=== PATIENT | female | born 1960 | race African-American/Black ===

== ENCOUNTER 2017-06-20 13:37 | Emergency (ER) | payer MEDICAID ==
[~2017-06-20] VITALS: Ht 167.6 cm; Wt 124.3 kg
[~2017-06-20 13:37] MED LIST: AMIT25TA9 PO; ASPI81TA10 PO; CITA-77 PO; ENAL20TA70 PO; GABA300C10 PO; IBUP600T27 PO; LURA80TA PO; Protonix PO; QUET25TA37 PO; TRIA37.577 PO
[2017-06-20 13:52] VITALS: BP 157/79
== END 2017-06-20 16:45 | disposition home or self-care (01) ==
LOC: ER 13:37
DX: L72.0 Epidermal cyst (principal); I10 Essential (primary) hypertension; Z79.82 Long term (current) use of aspirin

== ENCOUNTER 2017-12-17 01:06 | Emergency (ER) | payer MEDICARE, MEDICAID ==
[~2017-12-17] VITALS: Ht 167.6 cm; Wt 122.5 kg
[2017-12-17 02:51] VITALS: BP 142/80
== END 2017-12-17 03:12 | disposition home or self-care (01) ==
LOC: ER 01:06
DX: L21.9 Seborrheic dermatitis, unspecified (principal); I10 Essential (primary) hypertension; M32.9 Systemic lupus erythematosus, unspecified; Z79.899 Other long term (current) drug therapy

== ENCOUNTER 2018-01-12 21:06 | Emergency (ER) | payer MEDICARE, MEDICAID ==
[~2018-01-12] VITALS: Ht 167.6 cm; Wt 83.5 kg
[2018-01-12 22:07] LABS: Basophils # (auto) 0.1 uL; Basophils % (auto) 0.9 % (0.0-2.0); Eosinophils # (auto) 0 uL; Eosinophils % (auto) 0.4 % (0.0-7.0); Hematocrit 42.8 % (36.0-46.0); Hemoglobin 14.2 g/dL (12.2-16.2); Lymphocytes # (auto) 2.7 uL; Lymphocytes % (auto) 27.5 % (10.0-50.0); Mean Corpuscular Hemoglobin 28.4 pg (28.0-32.0); Mean Corpuscular Hgb Conc. 33.2 g/dL (32.0-36.0); Mean Corpuscular Volume 85.7 fL (80.0-100.0); Monocytes # (auto) 1.1 uL; Monocytes % (auto) 11.5 % (0.0-12.0); Neutrophils # (auto) 5.8 uL; Neutrophils % (auto) 59.7 % (37.0-80.0); Nucleated Red Blood Cells % 0.2 %; Platelet Count (auto) 174 10^3/uL (140-450); White Blood Cell 9.8 10^3/uL (4.4-10.8)
[2018-01-12 22:20] LABS: INR 1.05 (0.9-1.15); Partial Thromboplastin Time 24.9 sec (23.78-33.04); Prothrombin Time 11.2 sec (9.27-12.13)
[2018-01-12 22:26] LABS: Albumin 3.6 g/dL (3.4-5.0); Anion Gap 10 (5-15); Blood Urea Nitrogen 12 mg/dL (7-18); Calcium 8.8 mg/dL (8.5-10.1); Carbon Dioxide 25 mmol/L (21-32); Chloride 102 mmol/L (98-107); Glucose 111 mg/dL (74-106); Potassium 3.5 mmol/L (3.5-5.1); Sodium 137 mmol/L (136-145)
[2018-01-12 22:36] LABS: Alanine Aminotransferase 68 U/L (13-56); Alkaline Phosphatase 94 U/L (45-117); Aspartate Aminotransferase 78 U/L (15-37); BUN/Creatinine Ratio 13.5; Bilirubin, Total 1.1 mg/dL (0.2-1.0); GFR African American 84 mL/min; GFR Non-African American 70 mL/min; Total Protein 8.6 g/dL (6.4-8.2)
[2018-01-13 02:26] LABS: Urine Bacteria NONE SEEN /hpf (None Seen); Urine Blood Negative /uL (Negative); Urine Mucus FEW (None Seen); Urine WBC 1 /hpf (0 - 5)
[2018-01-13 02:27] VITALS: BP 172/92
[2018-01-13] MEDS ORDERED: ONDANSETRON ODT 4 MG TAB PO ONE (02:30)
== END 2018-01-13 02:53 | disposition home or self-care (01) ==
LOC: ER 21:10
DX: R10.13 Epigastric pain (principal); R11.2 Nausea with vomiting, unspecified; I10 Essential (primary) hypertension; Z79.82 Long term (current) use of aspirin; Z79.1 Long term (current) use of non-steroidal anti-inflammatories (NSAID); Z79.899 Other long term (current) drug therapy
CPT/HCPCS: 36415; 71045; 74176; 80053; 81001; 84484; 85025; 85610; 85730; 93005

== ENCOUNTER → 2018-12-04 | Emergency (ER) | payer MEDICARE, MEDICAID ==
[~2018-12-04] VITALS: Ht 167.6 cm; Wt 124.7 kg
[~2018-12-04] MED LIST changes: +ENAL20TA PO; -ENAL20TA70 PO; +SODIUM CHLORIDE 0.9% 1,000 ML IV ONE
[2018-12-04 23:44] LABS: Basophils # (auto) 0.1 uL; Eosinophils # (auto) 0.2 uL; Eosinophils % (auto) 2.7 % (0.0-7.0); Hematocrit 43.5 % (36.0-46.0); Hemoglobin 14.4 g/dL (12.2-16.2); Lymphocytes # (auto) 2.5 uL; Lymphocytes % (auto) 35.5 % (10.0-50.0); Mean Corpuscular Hemoglobin 28.9 pg (28.0-32.0); Mean Corpuscular Hgb Conc. 33.2 g/dL (32.0-36.0); Monocytes # (auto) 0.8 uL; Monocytes % (auto) 11.8 % (0.0-12.0); Neutrophils # (auto) 3.5 uL; Nucleated Red Blood Cells % 0.1 %; Platelet Count (auto) 140 10^3/uL (140-450); Red Cell Distribution Width 15.1 % (11.8-14.3); White Blood Cell 7.1 10^3/uL (4.4-10.8)
[2018-12-04 23:51] LABS: Urine Bacteria FEW /hpf (None Seen); Urine Blood Negative /uL (Negative); Urine Specific Gravity 1.004 (1.001-1.035); Urine WBC 2 /hpf (0 - 5)
[2018-12-04 23:58] LABS: Amphetamine Screen, Urine NEGATIVE (NEGATIVE); Barbiturate Scree,Urine NEGATIVE (NEGATIVE); Benzodiazephine Screen, Urine POSITIVE (NEGATIVE); Cannabinoid Screen, Urine NEGATIVE (NEGATIVE); Cocaine Screen, Urine NEGATIVE (NEGATIVE); Phencyclidine Screen, Urine NEGATIVE (NEGATIVE)
[2018-12-05 00:05] LABS: Opiate Scree,Urine NEGATIVE (NEGATIVE)
[2018-12-05 00:07] LABS: Alkaline Phosphatase 92 U/L (45-117); Bilirubin, Total 0.5 mg/dL (0.2-1.0); Total Protein 8.5 g/dL (6.4-8.2)
[2018-12-05 00:11] LABS: INR 1.01 (0.9-1.15); Partial Thromboplastin Time 27.6 sec (23.64-32.05)
[2018-12-05 00:20] LABS: Anion Gap 7 (5-15); Blood Urea Nitrogen 12 mg/dL (7-18); Carbon Dioxide 25 mmol/L (21-32); Chloride 106 mmol/L (98-107); Glucose 73 mg/dL (74-106); Potassium 3.8 mmol/L (3.5-5.1); Sodium 138 mmol/L (136-145)
[2018-12-05 00:21] LABS: Alanine Aminotransferase 111 U/L (13-56); Albumin 3.6 g/dL (3.4-5.0); Aspartate Aminotransferase 100 U/L (15-37); BUN/Creatinine Ratio 14.1; Calcium 8.7 mg/dL (8.5-10.1); GFR African American 89 mL/min; GFR Non-African American 73 mL/min
[2018-12-05 03:36] VITALS: BP 113/75
== END | disposition home or self-care (01) ==
LOC: EDUNIT# 21:30 → EDBD 21:38 → ER 21:44
DX: S16.1XXA Strain of muscle, fascia and tendon at neck level, initial encounter (principal); S29.012A Strain of muscle and tendon of back wall of thorax, initial encounter; F10.129 Alcohol abuse with intoxication, unspecified; M32.9 Systemic lupus erythematosus, unspecified; Z79.899 Other long term (current) drug therapy; Z98.51 Tubal ligation status
CPT/HCPCS: 36415; 70450; 72125; 72128; 80053; 80307; 80320; 81001; 84484; 85025; 85610; 85730; 94761; 96360; 99284; J7030

== ENCOUNTER 2024-06-19 15:54 | Inpatient (IN) | payer MEDICARE, MEDICAID ==
[~2024-06-19] VITALS: Ht 167.6 cm; Wt 119.9 kg
[~2024-06-19 15:54] MED LIST changes: +AMIT25TA20 PO; -AMIT25TA9 PO; +ENAL1TAB48 PO; -ENAL20TA PO; +GABA-1250 PO; -GABA300C10 PO; +IBUP-1454 PO; -IBUP600T27 PO; -LURA80TA PO; +LURA80TA2 PO; -SODIUM CHLORIDE 0.9% 1,000 ML IV ONE
--- NOTE | 2024-06-19 16:01 | ED.PDOC ---
History of Present Illness HPI Comments 63-year-old female brought by paramedics because of chest pain for the past six days. Chest pain going to the back. She states that she thought it was gastritis tried to use antacids without any help. She did have nausea along with vomiting in the ER. Blood pressure when paramedics arrived was systolic 180. She was given aspirin nitro. After she was medicated her blood pressure was 127/70. She continues to have vomiting in the ER. Denies any other symptoms. Time Seen by MD: 15:56 Primary Care Provider: RANDY Reviewed Notes: Nurses Notes, Medications, Allergies Allergies: Coded Allergies: NO KNOWN ALLERGIES (Unverified , 11/01/13) Home Meds Active Scripts Hydrochlorothiazide W/Triamter (Triamterene/Hydrochloroth) 1 Tab Tab, 1 TAB PO DAILY, #30 TAB 5 Refills Prov:KATHIE THOMPSONPSaeed 11/02/13 [Protonix] No Conflict Check, 20 MG PO DAILY Prov:KATHIE THOMPSON N.P. 11/02/13 Quetiapine Fumerate (Seroquel) 25 Mg Tab, 50 MG PO HS, #60 Prov:KATHIE THOMPSONP. 11/02/13 Reported Medications Citalopram Hydrobromide (Citalopram Hydrobromide) 20 Mg Tab, 20 MG PO BID, #30 11/02/13 Aspirin (Aspirin Ec Low Dose) 81 Mg Tab, 81 MG PO DAILY, #30 11/02/13 Ibuprofen (Ibuprofen) 600 Mg Tab, 600 MG PO PRN, #120 11/02/13 Enalapril Maleate (Enalapril Maleate) 20 Mg Tab, 20 MG PO DAILY, #30 11/02/13 Amitriptyline Hcl (Amitriptyline Hcl) 25 Mg Tab, 25 MG PO BID, #60 11/02/13 Gabapentin (Gabapentin) 300 Mg Cap, 300 MG PO TID, #90 11/02/13 Lurasidone Hcl (LATUDA) 80 Mg Tab, 80 MG PO DAILY, #60 11/02/13 Information Source: Patient, Emergency Med Personnel Mode of Arrival: EMS Severity: Moderate Timing: Days Duration: Since onset Past Medical History PAST MEDICAL HISTORY: Anxiety, HTN Surgical History: BTL MEDICATION AID History: No Pertinent MEDICATION AID History Family History Family History: Unknown Social History Smoker: Non-Smoker Alcohol: Denies ETOH Use Drugs: Denies Drug Use Lives In: Home Constitutional: denies: chills, diaphoresis, fatigue, fever, malaise, sweats, weakness, others EENTM: denies: blurred vision, double vision, ear bleeding, ear discharge, ear drainage, ear pain, ear ringing, eye pain, eye redness, hearing loss, mouth pain, mouth swelling, nasal discharge, nose bleeding, nose congestion, nose pain, photophobia, tearing, throat pain, throat swelling, voice changes, others Respiratory: denies: cough, hemoptysis, orthopnea, SOB at rest, shortness of breath, SOB with excertion, stridor, wheezing, others Cardiovascular: reports: chest pain Gastrointestinal: reports: nausea, vomiting; denies: abdomen distended, abdominal pain, blood streaked bowels, constipated, diarrhea, dysphagia, difficulty swallowing, hematemesis, melena, poor appetite, poor fluid intake, rectal bleeding, rectal pain, others Genitourinary: denies: abnormal vagina bleeding, burning, dyspareunia, dysuria, flank pain, frequency, hematuria, incontinence, pain, , vagina discharge, urgency, others Neurological: denies: dizziness, fainting, headache, left sided numbness, left sided weakness, numbness, paresthesia, pre-existing deficit, right sided numbness, right sided weakness, seizure, speech problems, tingling, tremors, weakness, others Musculoskeletal: denies: back pain, gout, joint pain, joint swelling, muscle pain, muscle stiffness, neck pain, others Integumetry: denies: bruises, change in color, change in hair/nails, dryness, laceration, lesions, lumps, rash, wounds, others Allergic/Immunocompromised: denies: Difficulty Healing, Frequent Infections, Hives, Itching, others Hematologic/Lymphatic: denies: anemia, blood clots, easy bleeding, easy bruising, swollen glands, others Endocrine: denies: excessive hunger, excessive sweating, excessive thirst, excessive urination, flushing, intolerance to cold, intolerance to heat, unexplained weight gain, unexplained weight loss, others Psychiatric: denies: anxiety, bipolar disorder, depression, hopeless, panic disorder, schizophrenia, sleepless, suicidal, others Physical Exam General Appearance: Moderate Distress HEENT: Normal ENT Inspection, Pharynx Normal, TMs Normal Neck: Full Range of Motion, Non-Tender, Normal, Normal Inspection Respiratory: Chest Non-Tender, Lungs Clear, No Accessory Muscle Use, No Respiratory Distress, Normal Breath Sounds Cardiovascular: No Edema, No JVD, No Murmur, No Gallop, Normal Peripheral Pulses, Regular Rate/Rhythm Breast Exam: Deferred Gastrointestinal: No Organomegaly, Non Tender, No Pulsatile Mass, Normal Bowel Sounds, Soft Genitalia: Deferred Pelvic: Deferred Rectal: Deferred Extremities: No calf tenderness, Normal capillary refill, Normal inspection, Normal range of motion, Non-tender, No pedal edema Musculoskeletal : Apperance: Normal Neurologic: Alert, energy project engineer II-XII nml as Tested, No Motor Deficits, Normal Affect, Normal Mood, No Sensory Deficits Cerebellar Function: NOT DONE Reflexes: NOT DONE Skin: Dry, Normal Color, Warm Peripheral Pulses: 3+ Radial (R), 3+ Radial (L) Lymphatic: No Adenopathy Was a procedure done? Was a procedure done?: No EKG EKG : Pulse Rate (adult): 81 [place]: Normal Cardiac Rhythm: NSR Differential Dx Considerations may include: Chest pain Electrolyte imbalance X-Ray, Labs, Meds, VS Vital Signs Date Time Temp Pulse Resp B/P (MAP) Pulse Ox O2 Delivery O2 Flow Rate FiO2 06/19/24 16:03 81 Patient alert. Complaining of chest pain nausea vomiting. Vitals stable. Answering questions. She continues to have vomiting in the ER. Establish intravenous access. Was given fluids. Was given Zofran. She was given aspirin nitro in the field. She was given nitro in the ER. Was given morphine. Reviewed her history. Explained to the patient. Continue monitoring. Time of 1ST Reevaluation: 15:59 Reevaluation 1ST: Unchanged Patient Education/Counseling: Diagnosis, Treatment, Prognosis Family Education/Counseling: No Family Present Departure 1 Departure Time of Disposition: 16:00 Impression: Primary Impression: Chest pain of unknown etiology Additional Impression: HTN (hypertension) Qualified Codes: I10 - Essential (primary) hypertension Disposition: ADMITTED INPATIENT Admit to: Med Surg Condition: Guarded Critical Care Note Critical Care Time?: No Stability Stability form required: No Heart Score Heart Score: Heart Score Response (Comments) Value History Slightly Suspicious 0 EKG Normal 0 Age 45-64 1 Risk Factors >3 or Hx ASHD 2 Troponin Normal limit 0 Total 3 DANIE KHALIL MD Jun 19, 2024 16:01
--- NOTE | 2024-06-19 16:33 | DVH ---
CHEST RADIOGRAPH Indication: sob Technique: Single frontal view of the chest was obtained Comparison: None FINDINGS: Lines and Tubes: None Lungs: No focal consolidation. Pleura: No effusion. No pneumothorax. Cardiomediastinal contours: Unremarkable Bones: No acute osseous abnormality. IMPRESSION: 1. No acute cardiopulmonary disease.
[2024-06-19 16:52] LABS: Basophils # (auto) 0.2 10 ^3/uL (0-0.2); Eosinophils # (auto) 0 10 ^3/uL (0-0.8); Eosinophils % (auto) 0.1 % (0.0-7.0); Hematocrit 53.4 % (36.0-46.0); Hemoglobin 17.7 g/dL (12.2-16.2); Lymphocytes # (auto) 4.5 10 ^3/uL (0.4-5.4); Lymphocytes % (auto) 26.9 % (10.0-50.0); Mean Corpuscular Hemoglobin 28.3 pg (28.0-32.0); Mean Corpuscular Hgb Conc. 33.1 g/dL (32.0-36.0); Mean Corpuscular Volume 85.5 fL (80.0-100.0); Monocytes # (auto) 1.7 10 ^3/uL (0-1.3); Monocytes % (auto) 10.5 % (0.0-12.0); Neutrophils # (auto) 10.2 10 ^3/uL (1.6-8.6); Neutrophils % (auto) 61.5 % (37.0-80.0); Nucleated Red Blood Cells % 0.9 %; Platelet Count (auto) 213 10^3/uL (140-450); Red Blood Cells 6.25 10^6/uL (4.0-5.20); Red Cell Distribution Width 14.2 % (11.8-14.3); White Blood Cell 16.5 10^3/uL (4.4-10.8)
[2024-06-19 16:57] LABS: Chloride 101 mmol/L (98-107); Sodium 138 mmol/L (136-145)
[2024-06-19 16:58] LABS: Anion Gap 14 (5-15); Carbon Dioxide 23 mmol/L (20-31)
[2024-06-19 16:59] LABS: Calcium 10.6 mg/dL (8.7-10.4); Potassium 3.4 mmol/L (3.5-5.1)
[2024-06-19 17:03] LABS: BUN/Creatinine Ratio 14.9 (10.0-20.0); Blood Urea Nitrogen 15 mg/dL (9-23)
[2024-06-19 17:04] LABS: Glucose 128 mg/dL (74-106)
[2024-06-19] MEDS: NITROGLYCERIN 0.4 MG SL TAB SL ONE ×2 (17:14→18:00)
[2024-06-19] MEDS: SODIUM CHLORIDE 0.9% 1,000 ML IV ONE (17:16)
[2024-06-19] MEDS: ONDANSETRON HCL 4 MG/2 ML VIAL IV ONE (17:18)
[2024-06-19] MEDS: MORPHINE SULFATE 4 MG/ML SYR/VIAL IV ONE (17:18)
[2024-06-19 17:32] VITALS: PULSE 91; RESP 15; O2SAT 96
[2024-06-19] MEDS ORDERED: ONDANSETRON HCL 4 MG/2 ML VIAL IV PRN (18:00)
[2024-06-19] MEDS ORDERED: MORPHINE SULFATE INJ 2 MG/ml SYRG IV PRN (18:00)
[2024-06-19] MEDS ORDERED: NITROGLYCERIN 0.4 MG SL TAB SL PRN ×2 (18:00)
[2024-06-19] MEDS ORDERED: MORPHINE SULFATE 4 MG/ML SYR/VIAL IV PRN (18:00)
[2024-06-19] MEDS ORDERED: LEVO25TA6 PO (18:13)
[2024-06-19] MEDS ORDERED: HYDR50CA2 PO (18:13)
[2024-06-19] MEDS ORDERED: DIVA500T13 PO (18:13)
--- NOTE | 2024-06-19 18:28 | DVHHP2 ---
History of Present Illness Reason for Visit: Chest pain History of Present Illness Anjel Swift is a 63-year-old female with past medical history of hypertension, lupus, GERD, depression, right breast cancer, left toe surgery, right lower extremity DVT, and bilateral tubal ligation who presents to the ED with chest pain with nausea x6 days. Patient reports that the emesis now coming out is green and mucousy. She also states that she has not been able to drink water for about 6 to 7 days. Patient states that the pain in the chest is midsternum radiates down her to her navel is 10/10 constant and tight. Patient states nothing makes the pain better or worse she also states that she tried [id number] antacids and it did not work. Patient denies any shortness of breath, fever, chills, lightheadedness, weakness, dizziness, recent trauma or injury, recent sick contacts, recent travels, diarrhea, or shortness of breath. maalox Cardiovascular: HTN GI: GERD Psych: Depression Past Medical History Lupus Right lower extremity DVT not on anti coags Past Surgical History: Other (Right breast cancer tissue removal and left toe surgery), Tubal Ligation Family History: Cancer, Other (Mom with ovarian cancer, grandma with ovarian cancer, aunt with leukemia, uncle with cancer unknown, dad with PA and cardiovascular disease) Smoke: Quit ALCOHOL: none Lives: Alone Domestic Violence: Neg Review of Systems Cardiovascular: Chest Pain Gastrointestinal: Nausea, Vomiting Allergies: Coded Allergies: Ibuprofen (Verified Adverse Reaction, Mild, 06/19/24) Medications Current Medications Medications Dose Ordered Sig/Vicente Route Start Time Stop Time Status Last Admin Dose Admin Aspirin 81 mg DAILY PO 06/20/24 10:00 UNV Atorvastatin Calcium 40 mg HS PO 06/19/24 22:00 UNV Morphine Sulfate 2 mg Q30MP PRN IV 06/19/24 18:00 UNV Acetaminophen 650 mg Q6HP PRN PO 06/19/24 18:00 UNV Nitroglycerin 0.4 mg Q5MINP PRN SL 06/19/24 18:00 UNV Ondansetron HCl 4 mg Q4HP PRN IV 06/19/24 18:00 UNV Nitroglycerin 0.4 mg Q5MINP PRN SL 06/19/24 18:00 UNV Morphine Sulfate 2 mg Q30M PRN IV 06/19/24 18:00 UNV Ceftriaxone Sodium 50 ml @ 100 mls/hr DAILY@09 IV 06/20/24 09:00 UNV Metronidazole 100 ml @ 100 mls/hr Q8HR IV 06/19/24 22:00 UNV Enoxaparin Sodium 40 mg DAILY SC 06/20/24 10:00 UNV Exam Vital Signs Vital Signs Date Time Temp Pulse Resp B/P (MAP) Pulse Ox O2 Delivery O2 Flow Rate FiO2 06/19/24 17:32 91 15 96 Room Air* 0 21 06/19/24 17:18 163/111 06/19/24 16:51 97.6 97.6 General Appearance: Alert, Oriented X3, Cooperative, No acute distress HEENT: Atraumatic, PERRLA, EOMI, Mucous membr. moist/pink Respiratory: Clear to auscultation, Normal air movement Cardiovascular: Regular rate, Normal S1, Normal S2, No murmurs Abdominal: Normal bowel sounds, Soft, No tenderness, No hepatospenomegaly, No masses Extremities: No clubbing, No cyanosis, No edema, Normal pulses Skin: No significant lesion Neuro: Normal speech, Strength at 5/5 X4 ext, Normal tone, Sensation intact Psych/Mental Status: Mental status NL, Mood NL Labs/Xrays Labs Test 06/19/24 16:22 Range/Units White Blood Count 16.5 H 4.4-10.8 10^3/uL Red Blood Count 6.25 H 4.0-5.20 10^6/uL Hemoglobin 17.7 H 12.2-16.2 g/dL Hematocrit 53.4 H 36.0-46.0 % Mean Corpuscular Volume 85.5 80.0-100.0 fL Mean Corpuscular Hemoglobin 28.3 28.0-32.0 pg Mean Corpuscular Hemoglobin Concent 33.1 32.0-36.0 g/dL Red Cell Distribution Width 14.2 11.8-14.3 % Platelet Count 213 140-450 10^3/uL Mean Platelet Volume 9.2 6.9-10.8 fL Neutrophils (%) (Auto) 61.5 37.0-80.0 % Lymphocytes (%) (Auto) 26.9 10.0-50.0 % Monocytes (%) (Auto) 10.5 0.0-12.0 % Eosinophils (%) (Auto) 0.1 0.0-7.0 % Basophils (%) (Auto) 1.0 0.0-2.0 % Neutrophils # (Auto) 10.2 H 1.6-8.6 10 ^3/uL Lymphocytes # (Auto) 4.5 0.4-5.4 10 ^3/uL Monocytes # (Auto) 1.7 H 0-1.3 10 ^3/uL Eosinophils # (Auto) 0 0-0.8 10 ^3/uL Basophils # (Auto) 0.2 0-0.2 10 ^3/uL Nucleated Red Blood Cells 0.9 % Sodium Level 138 136-145 mmol/L Potassium Level 3.4 L 3.5-5.1 mmol/L Chloride Level 101 98-107 mmol/L Carbon Dioxide Level 23 20-31 mmol/L Anion Gap 14 5-15 Blood Urea Nitrogen 15 9-23 mg/dL Creatinine 1.01 0.550-1.02 mg/dL Glomerular Filtration Rate Calc 63 >90 mL/min BUN/Creatinine Ratio 14.9 10.0-20.0 Serum Glucose 128 H 74-106 mg/dL Calcium Level 10.6 H 8.7-10.4 mg/dL Troponin I High Sensitivity 42 *H </=34 ng/L CHEST RADIOGRAPH Indication: sob Technique: Single frontal view of the chest was obtained Comparison: None FINDINGS: Lines and Tubes: None Lungs: No focal consolidation. Pleura: No effusion. No pneumothorax. Cardiomediastinal contours: Unremarkable Bones: No acute osseous abnormality. IMPRESSION: 1. No acute cardiopulmonary disease. Assessment/Plan Assessment/Plan Assessment NSTEMI Leukocytosis probable gastritis versus enteritis versus other etiology Hypokalemia Rule out pancreatitis Obesity History of hypertension History of lupus History of GERD History of depression History of right breast tissue removal History of left toe surgery History of right lower extremity DVT History of bilateral tubal ligation Plan [facility] IV antibiotics-ceftriaxone + Flagyl Replete lytes Bilateral lower extremity ultrasound venous ordered Echo ordered Aspirin Statin UDS A1c Lipid panel TSH Trend LFTs Amylase Lipase CT abdomen and pelvis pending Antiemetics Pain management Diet Home medications reconciled DVT prophylaxis-Lovenox PUD prophylaxis-Protonix Discussed plan of care with patient and nurse Counseled patient on lifestyle modifications, diet, and exercise Rounding hospitalist consult cardiology if troponins elevate further Plan discussed with: Patient My Orders Orders - AZAR MALDONADO NETWORK PROGRAMMER Procedure Category Date Status Time Admit ADMIT 06/19/24 Transmitted 17:59 Code Status CODE 06/19/24 Transmitted 17:59 Vital Signs EDDIE 06/19/24 In Process 17:59 Accounts Specialist EDDIE 06/19/24 In Process 17:59 Cardiac DIET 06/19/24 Transmitted Diet-2gna,Lofat,Lochol Dinner Aspirin Tablet PHA 06/20/24 Logged 10:00 Atorvastatin (Lipitor) PHA 06/19/24 Logged 22:00 Morphine Sulfate PHA 06/19/24 Logged Injection 18:00 Acetaminophen Tablet PHA 06/19/24 Logged (Tylenol Tablet) 18:00 Complete Blood Count LAB 06/20/24 Verified 04:00 Basic Metabolic Panel LAB 06/20/24 Verified 04:00 Magnesium LAB 06/20/24 Verified 04:00 Lipid Panel LAB 06/20/24 Verified 04:00 Echo 2d Mode Cardiac US 06/19/24 Logged DOP 17:59 Nitroglycerin PHA 06/19/24 Logged Sublingual (Ntrostat 18:00 Ondansetron Hcl PHA 06/19/24 Logged (Zofran) 18:00 Electrocardigram EKG 06/20/24 Logged 04:00 Troponin-I Hs LAB 06/19/24 Logged 17:59 Cardiac EDDIE 06/19/24 In Process Rehabilitation - Outpa Nitroglycerin PHA 06/19/24 Logged Sublingual (Ntrostat 18:00 Morphine Sulfate PHA 06/19/24 Logged Injection 18:00 Stat Ekg For Chest EDDIE 06/19/24 In Process Pain 17:59 Notify Of Changes EDDIE 06/19/24 In Process From Base 17:59 Flight Manager For EDDIE 06/19/24 In Process 24 Hours 17:59 Emergency Dysrhythmia EDDIE 06/19/24 In Process Protocol 17:59 Rhythm Strips Once EDDIE 06/19/24 In Process Every Shift 17:59 Oxygen By Nasal RT 06/19/24 Transmitted Cannula 17:59 Lactic Acid W/ Reflex LAB 06/19/24 Logged Order 17:59 Potassium Er Tablet PHA 06/19/24 Logged (Klor-Con Tablet) 18:00 Ceftriaxone 1gm/50ml PHA 06/20/24 Logged D5w (Rocephin) 09:00 Metronidazole PHA 06/19/24 Logged 500mg/100ml (Flagyl 22:00 Enoxaparin Sodium PHA 06/20/24 Logged (Lovenox) 10:00 Bilat Lower Dvt US 06/19/24 Logged 18:11 Amitriptyline Hcl PHA 06/19/24 Transmitted Tablet (Elavil Tablet) 22:00 Aspirin Enteric PHA 06/20/24 Transmitted Coated Tablet 10:00 Citalopram Tablet PHA 06/19/24 Transmitted (Celexa Tablet) 22:00 Gabapentin Capsule PHA 06/19/24 Transmitted (Neurontin Capsule) 22:00 Triamterene/Hctz PHA 06/20/24 Transmitted (Dyazide 37.5/25mg 10:00 Quetiapine Fumarate PHA 06/19/24 Transmitted Tablet (Seroquel Tab 22:00 (Nf) Enalapril Maleate PHA 06/20/24 Transmitted 10:00 (Nf) Lurasidone Hcl PHA 06/20/24 Transmitted (Latuda) 10:00 (Nf) [Protonix] PHA 06/20/24 Transmitted 10:00 Levothyroxine Tablet PHA 06/20/24 Transmitted (Synthroid Tablet) 10:00 (Nf) Divalproex Sodium PHA 06/19/24 Transmitted 22:00 (Nf) Hydroxyzine PHA 06/19/24 Transmitted Pamoate 22:00 Date of Service: Jun 19, 2024 Billing Provider: AZAR MALDONADO Common Visit Codes: 43683-[id number] INP/OBS CARE (HIGH) AZAR MALDONADO Jun 19, 2024 18:28
--- NOTE | 2024-06-19 18:54 | DVH ---
Exam: CT CT AB PEL WO CON-NO ORAL OR IV History: enteritis Comparison Study: None available at time of dictation. TECHNIQUE: Multidetector CT of the abdomen and pelvis without IV contrast. Axial, coronal and sagitta l multiplanar reformats were obtained from the axial data set by the technologist. Radiation Dose Information: CT Dose: CTDI volume is 26.05 mGy. Dose-length product is 1429.08 mGy*cm FINDINGS: The lung bases are clear. Partially visualized heart is unremarkable. Small Right posterior mesenter ic fat containing diaphragmatic hernia. Subtle micronodular contour of the liver. Subcentimeter hypodense right hepatic lobe lesion that is t oo small to characterize. Nonspecific foci of calcification within the liver. Mild hepatomegaly with Caitie's lobe of the liver. Recanalization of the umbilical vein. Spleen, pancreas and adrenal glands unremarkable. Sludge within the gallbladder with no evidence of gallbladder wall thickening perichol ecystic free fluid. 2.6 cm right renal cyst. Otherwise, kidneys, ureters and urinary bladder unremarkable. Partially naheed cified uterine fibroid. Otherwise, uterus and adnexa unremarkable. Mild gastric wall thickening which is most likely from inadequate distension. Small bowel loops unre markable. Appendix is unremarkable. Moderate to large amount of fecal material within the colon. No evidence of intraperitoneal free air or free fluid. No evidence of aortic aneurysm. No significant lymphadenopathy. Tiny fat containing umbilical hernia. No destructive osseous lesions are noted. IMPRESSION: No evidence of acute abdominopelvic abnormalities. Subtle micronodular contour of the liver. Correlate for cirrhosis. Sub cm hypodense hepatic lesion that is too small to characterize. Sludge within the gallbladder with no CT evidence of acute cholecystitis. 2.6 cm right renal cyst. Moderate to large amount of fecal material within the colon.
--- NOTE | 2024-06-19 19:01 | ECG ---
[facility] Test Date: 2024-06-19 Test Time: 16:00:26 Pat Name: CORY REDDY Department: ED Room: [address] [place] [address] Gender: F Second Steward: AMOS : 1960 Requested By: DANIE KHALIL Order Number: [id number] Reading MD: Arcadio Rodney Measurements Intervals [place] Rate: 81 P: 64 OR: 158 QRS: 110 QRSD: 91 T: 19 QT: 392 QTc: 455 Interpretive Statements Sinus rhythm Ventricular premature complex Right axis deviation Borderline ST elevation, lateral leads Baseline wander in lead(s) II,aVF Electronically Signed On 06-24-2024 12:38:53 PDT by Arcadio Rodney Please click the below link to view image of tracing.
[2024-06-19 19:15] LABS: Alkaline Phosphatase 107 U/L (46-116); Lipase 31 U/L (12-53)
[2024-06-19 19:16] LABS: Amylase 100 U/L (30-118)
--- NOTE | 2024-06-19 19:18 | DVH ---
Bilateral lower extremity venous duplex Clinical History: ro dvt Comparison: None Technique: Duplex Doppler evaluation of the deep venous systems of both lower extremities from the co mmon femoral veins to the popliteal veins including color Doppler and spectral/pulsed waveform analys is was performed. Findings: RIGHT SIDE: The common femoral vein demonstrates appropriate compressibility and waveform variability . There is compressibility/patency of the great saphenous vein at the proximal thigh . The femoral vein demonstrates appropriate compressibility and waveform variability . The deep femoral vein demonstrates appropriate compressibility and waveform variability . The popliteal vein demonstrates appropriate compressibility and waveform variability . There is color flow at the tibioperoneal trunk and in the posterior tibial vein. LEFT SIDE: The common femoral vein demonstrates appropriate compressibility and waveform variability . There is compressibility/patency of the great saphenous vein at the proximal thigh . The femoral vein demonstrates appropriate compressibility and waveform variability . The deep femoral vein demonstrates appropriate compressibility and waveform variability . The popliteal vein demonstrates appropriate compressibility and waveform variability . There is color flow at the tibioperoneal trunk and in the posterior tibial vein. Small Canas's cyst noted. Impression: 1. No right or left femoropopliteal venous thrombosis. 2. Small left Canas's cyst.
[2024-06-19 19:24] LABS: Aspartate Aminotransferase 101 U/L (13-40)
[2024-06-19 19:25] LABS: Alanine Aminotransferase 85 U/L (7-40)
[2024-06-19 19:51] LABS: Lactic Acid w/Reflex 2.3 mmol/L (0.4-2.0)
[2024-06-19] MEDS: POTASSIUM CHL 20 Meq TABLET PO ONE (20:53)
[2024-06-19] MEDS: metroNIDAZOLE 500MG/100ML 100 ML IV ONE (20:56)
[2024-06-19] MEDS: cefTRIAXone 1GM/50ML D5W 50 ML IV ONE (21:07)
[2024-06-19] MEDS: ENOXAPARIN SOD 120 MG/0.8 ML SYRINGE SC ONE (21:15)
[2024-06-19] MEDS: PANTOPRAZOLE 40 MG/10 ML VIAL INJ IV SCH (21:15)
[2024-06-19 21:42] VITALS: BP 185/89; PULSE 65; PULSE 78; RESP 18; TEMP 97.5; O2SAT 100; O2SAT 98
[2024-06-19] MEDS: QUEtiapine FUMARATE 25 MG TAB PO SCH (22:05)
[2024-06-19] MEDS: ATORVASTATIN 20 MG TAB PO SCH (22:06)
[2024-06-19] MEDS: GABAPENTIN 300 MG CAP PO SCH (22:06)
[2024-06-19] MEDS: CITALOPRAM HYDROBR 20 MG TAB PO SCH (22:06)
[2024-06-19] MEDS: AMITRIPTYLINE HCL 25 MG TAB PO SCH (22:07)
[2024-06-19] MEDS: metroNIDAZOLE 500MG/100ML 100 ML IV SCH (22:22)
[2024-06-19] MEDS: hydrOXYzine 25 MG TAB or CAP PO SCH (22:29)
[2024-06-19] MEDS: cloNIDine HCL 0.1 MG TAB PO ONE (22:49)
[2024-06-19] MEDS: HYDROcodone-ACET 5/325MG TAB PO ONE (22:51)
[2024-06-20] VITALS (10 sets, daily range): BP systolic 93–119; BP diastolic 39–52; PULSE 65–89; RESP 16–18; TEMP 97.5–98.6; O2SAT 94–100
[2024-06-20 03:41] LABS: Urine Bacteria None Seen /hpf (None Seen)
[2024-06-20 03:53] LABS: Urine Blood Negative /uL (Negative); Urine Clarity Turbid (Clear); Urine Color Yellow (Yellow); Urine Hyaline Cast MOD /lpf (0 - 2); Urine Mucus FEW (None Seen); Urine Protein, UAD 1+ (Negative); Urine Specific Gravity 1.025 (1.001-1.035); Urine Squamous Epithelial Cell FEW /hpf (<5); Urine Urobilinogen 4 mg/dL (Negative); Urine WBC 7 /HPF (0-5); Urine pH 6.5 (5.0-9.0)
[2024-06-20 04:02] LABS: Cannabinoid Screen, Urine Neg (NEGATIVE)
[2024-06-20 04:04] LABS: Barbiturate Scree,Urine Neg (NEGATIVE); Opiate Scree,Urine Pos (NEGATIVE)
[2024-06-20 04:05] LABS: Amphetamine Screen, Urine Neg (NEGATIVE); Benzodiazephine Screen, Urine Neg (NEGATIVE); Cocaine Screen, Urine Neg (NEGATIVE); Phencyclidine Screen, Urine Neg (NEGATIVE)
[2024-06-20 05:56] LABS: Basophils # (auto) 0.1 10 ^3/uL (0-0.2); Basophils % (auto) 0.7 % (0.0-2.0); Eosinophils # (auto) 0.1 10 ^3/uL (0-0.8); Eosinophils % (auto) 0.9 % (0.0-7.0); Hemoglobin 14.2 g/dL (12.2-16.2); Lymphocytes # (auto) 5.9 10 ^3/uL (0.4-5.4); Lymphocytes % (auto) 45.3 % (10.0-50.0); Mean Corpuscular Hemoglobin 28.7 pg (28.0-32.0); Mean Corpuscular Hgb Conc. 33.7 g/dL (32.0-36.0); Mean Corpuscular Volume 85.1 fL (80.0-100.0); Monocytes # (auto) 1.4 10 ^3/uL (0-1.3); Monocytes % (auto) 10.9 % (0.0-12.0); Neutrophils # (auto) 5.5 10 ^3/uL (1.6-8.6); Neutrophils % (auto) 42.2 % (37.0-80.0); Nucleated Red Blood Cells % 0.1 %; Platelet Count (auto) 169 10^3/uL (140-450); Red Blood Cells 4.94 10^6/uL (4.0-5.20); Red Cell Distribution Width 13.8 % (11.8-14.3); White Blood Cell 13.1 10^3/uL (4.4-10.8)
[2024-06-20 06:02] LABS: Anion Gap 11 (5-15); Calcium 9.1 mg/dL (8.7-10.4); Carbon Dioxide 23 mmol/L (20-31); Chloride 106 mmol/L (98-107); Sodium 140 mmol/L (136-145)
[2024-06-20] MEDS: LEVOTHYROXINE SODIUM 25 MCG TAB PO SCH (06:07)
[2024-06-20 06:08] LABS: BUN/Creatinine Ratio 15.7 (10.0-20.0); Blood Urea Nitrogen 16 mg/dL (9-23); Glucose 103 mg/dL (74-106); Triglycerides 52 mg/dL (< 150)
[2024-06-20 06:09] LABS: LDL Cholesterol 82 mg/dL (< 100); Magnesium 1.9 mg/dL (1.6-2.6)
[2024-06-20 06:10] LABS: Cholesterol 153 mg/dL (< 200); HDL Cholesterol 49 mg/dL (40-59)
[2024-06-20 06:12] LABS: Potassium 3.1 mmol/L (3.5-5.1)
--- NOTE | 2024-06-20 06:53 | ECG ---
[facility] Test Date: 2024-06-19 Test Time: 17:00:08 Pat Name: CORY REDDY Department: ED Room: [address] [place] [address] 5 Gender: F Site Monitor: AMOS : 1960 Requested By: DANIE KHALIL Order Number: [id number] Reading MD: Arcadio Rodney Measurements Intervals [place] Rate: 72 P: 50 [place]: 147 QRS: 17 QRSD: 99 T: 28 QT: 462 QTc: 506 Interpretive Statements Sinus rhythm Atrial premature complexes Probable left atrial enlargement Minimal ST elevation, anterior leads Prolonged QT interval Electronically Signed On 06-24-2024 12:39:26 PDT by Arcadio Rodney Please click the below link to view image of tracing.
--- NOTE | 2024-06-20 06:54 | ECG ---
[facility] Test Date: 2024-06-19 Test Time: 19:56:12 Pat Name: CORY REDDY Department: ER Room: [address] [place] [address] 5 Gender: F Commercial Underwriter: JEEVAN : 1960 Requested By: DANIE KHALIL Order Number: [id number] Reading MD: Arcadio Rodney Measurements Intervals [place] Rate: 66 P: 51 PA: 151 QRS: 27 QRSD: 93 T: 46 QT: 519 QTc: 544 Interpretive Statements Sinus rhythm Atrial premature complex Minimal ST elevation, anterior leads Prolonged QT interval Electronically Signed On 06-24-2024 12:41:15 PDT by Arcadio Rodney Please click the below link to view image of tracing.
[2024-06-20] MEDS: cefTRIAXone 1GM/50ML D5W 50 ML IV SCH (09:08)
[2024-06-20] MEDS: LURASIDONE HCL 80 MG PO SCH (09:38)
[2024-06-20] MEDS: ASPirin-EC 81 mg tab PO SCH (09:39)
[2024-06-20] MEDS: ENALAPRIL MALEATE 10 MG TAB PO SCH (09:40)
[2024-06-20] MEDS: TRIAMTERENE/HCTZ 37.5/25 MG CAP/TAB PO SCH (09:41)
[2024-06-20] MEDS: ENOXAPARIN SOD 40 MG/0.4 ML SYRINGE SC SCH (09:41)
[2024-06-20] MEDS ORDERED: PROTONIX 20 MG PO SCH (10:00)
[2024-06-20] MEDS ORDERED: ASPirin 81 mg TAB PO SCH (10:00)
--- NOTE | 2024-06-20 13:20 | DVHPN2 ---
Reviewed: Care Plan, H&P, Labs, Medications, Previous Orders, Radiology Changes from previous H/P or p: No Changes Cardiovascular: Chest Pain Gastrointestinal: Nausea, Vomiting Objective Vitals Vital Signs Date Time Temp Pulse Resp B/P (MAP) Pulse Ox O2 Delivery O2 Flow Rate FiO2 06/20/24 12:38 98.3 83 16 104/44 (64) 97 98.3 06/20/24 08:00 Room Air* 0 21 Intake/Output Intake and Output 06/20/24 07:00 Intake Total 100 ml Balance 100 ml Intake IV Total 100 ml # Voids 1 Medications Current Medications Medications Dose Ordered Sig/Vicente Route Start Time Stop Time Status Last Admin Dose Admin Atorvastatin Calcium 40 mg HS PO 06/19/24 22:00 06/19/24 22:06 40 MG Morphine Sulfate 2 mg Q30MP PRN IV 06/19/24 18:00 Acetaminophen 650 mg Q6HP PRN PO 06/19/24 18:00 Nitroglycerin 0.4 mg Q5MINP PRN SL 06/19/24 18:00 Ondansetron HCl 4 mg Q4HP PRN IV 06/19/24 18:00 Ceftriaxone Sodium 50 ml @ 100 mls/hr DAILY@09 IV 06/20/24 09:00 06/20/24 09:08 100 MLS/HR Metronidazole 100 ml @ 100 mls/hr Q8HR IV 06/19/24 22:00 06/20/24 05:55 100 MLS/HR Enoxaparin Sodium 40 mg DAILY SC 06/20/24 10:00 06/20/24 09:41 40 MG Amitriptyline HCl 25 mg BID PO 06/19/24 22:00 06/20/24 09:39 25 MG Aspirin 81 mg DAILY PO 06/20/24 10:00 06/20/24 09:39 81 MG Citalopram Hydrobromide 20 mg BID PO 06/19/24 22:00 06/20/24 09:39 20 MG Gabapentin 300 mg TID PO 06/19/24 22:00 06/20/24 06:07 300 MG Triamterene/HCTZ 1 cap DAILY PO 06/20/24 10:00 Quetiapine Fumarate 50 mg HS PO 06/19/24 22:00 06/19/24 22:05 50 MG Enalapril Maleate 20 mg DAILY PO 06/20/24 10:00 Patient Own Medication 80 mg DAILY PO 06/20/24 10:00 Levothyroxine Sodium 25 mcg QAM@0600 PO 06/20/24 06:00 06/20/24 06:07 25 MCG Divalproex Sodium 1,000 mg BID PO 06/19/24 22:00 06/20/24 09:39 1,000 MG Hydroxyzine Pamoate 50 mg TID PO 06/19/24 22:00 06/20/24 06:07 50 MG Pantoprazole Sodium 40 mg DAILY IV 06/19/24 18:30 06/20/24 09:38 40 MG Laboratory Results Laboratory Tests 06/20/24 05:26 Chemistry Test 06/19/24 16:22 06/20/24 05:26 Calcium Level 10.6 mg/dL (8.7-10.4) H 9.1 mg/dL (8.7-10.4) Magnesium Level 1.9 mg/dL (1.6-2.6) Lipid panel Test 06/19/24 16:22 06/20/24 05:26 Lipase 31 U/L (12-53) Cholesterol Level 153 mg/dL (< 200) HDL Cholesterol 49 mg/dL (40-59) Triglycerides Level 52 mg/dL (< 150) LFT Test 06/19/24 16:22 Alanine Aminotransferase (ALT) 85 U/L (7-40) H Alkaline Phosphatase 107 U/L (46-116) Aspartate Amino Transferase (AST) 101 U/L (13-40) H HgA1c, TSH Test 06/19/24 16:22 Hemoglobin A1c 5.2 % A1C (<5.7) Thyroid Stimulating Hormone (TSH) 3.40 uIU/mL (0.55-4.78) Urinalysis Test 06/20/24 03:00 Urine Color Yellow (Yellow) Urine Clarity Turbid (Clear) H Urine pH 6.5 (5.0-9.0) Urine Specific [place] 1.025 (1.001-1.035) Urine Protein 1+ (Negative) H Urine Ketones 1+ (Negative) H Urine Blood Negative /uL (Negative) Urine Nitrite Negative (Negative) Urine Bilirubin Negative (Negative) Urine Urobilinogen 4 mg/dL (Negative) H Urine Leukocyte Esterase 2+ /uL (Negative) Urine RBC 2 /hpf (0 - 4) Urine Microscopic WBC 7 /HPF (0-5) H Urine Squamous Epithelial Cells Few /hpf (<5) Urine Bacteria None seen /hpf (None Seen) Urine Hyaline Casts Mod /lpf (0 - 2) Urine Mucus Few (None Seen) Urine Glucose Normal mg/dL (Normal) Labs and/or images reviewed: Labs reviewed by me, Image(s) reviewed by me Assessment/Plan Assessment/Plan Sepsis unknown etiology: Blood cultures urine cultures Possible colitis: Rocephin Flagyl Depression: Celexa, Seroquel, Depakote History of right breast cancer History of DVT right lower extremity, venous ultrasound negative for DVT during this visit History of lupus Pancreatitis ruled out lipase normal Slightly elevated troponin Slightly elevated liver enzymes Chest x-ray negative Hypothyroidism Time spent 70 minutes Patient is full code Advanced care planning time 20 minutes Plan discussed with: Patient Date of Service: Jun 20, 2024 Billing Provider: JAMES WARD MD Common Visit Codes: [id number] CARE 30-74 MIN JAMES WARD MD Jun 20, 2024 13:20
--- NOTE | 2024-06-20 15:29 | DVHINCON2 ---
Date Seen: Jun 20, 2024 Referring Physician MD Nadir Reason for Consultation Elevated troponin History of Present Illness This 63-year-old female presents in the ED with a chief complaint of chest pain. The patient reports chest pressure, "feels like there's trapped air in the chest" associated with nausea, vomiting, epigastric pain, radiating to the back started six days ago. In the emergency department the patient underwent a 12 lead ECG revealing sinus rhythm with atrial premature complex, prolonged QT interval. Mild troponins 42/51/42, and chest x-ray shows remarkable. Upon assessment, the patient reports chest pressure pain is worse during inhalation and exertion. Denies history of [place] or CAD. Significant past medical history of hypertension, lupus, GERD, depression, right breast cancer, and DVT. Past Medical History As stated in HPI Past Surgical History Tubal ligation Family History: Cancer G8 MOTHER (OVARIAN) Maternal Grandmother (Ovarian) Maternal Aunt (Leukemia) Maternal Uncle Family history: Cardiovascular disease G8 FATHER Family History Reviewed, non-contributory to the management of this case. Social History The patient lives at home, denies smoking, alcohol or illicit drugs abuse. Allergies: Coded Allergies: Ibuprofen (Verified Adverse Reaction, Mild, 06/19/24) Home Meds Active Scripts Hydrochlorothiazide W/Triamter (Triamterene/Hydrochloroth) 1 Tab Tab, 1 TAB PO DAILY, #30 TAB 5 Refills Prov:KATHIE THOMPSONPSaeed 11/02/13 [Protonix] No Conflict Check, 20 MG PO DAILY Prov:KATHIE THOMPSONPSaeed 11/02/13 Quetiapine Fumerate (Seroquel) 25 Mg Tab, 50 MG PO HS, #60 Prov:KATHIE THOMPSON.P. 11/02/13 Reported Medications Hydroxyzine Pamoate (Hydroxyzine Pamoate) 50 Mg Cap, 1 CAP PO TID 06/19/24 Levothyroxine Sodium (Levothyroxine Sodium) 25 Mcg Tab, 1 TAB PO DAILY 06/19/24 Divalproex Sodium (Divalproex Sodium) 500 Mg Tab, 2 TAB PO BID 06/19/24 Citalopram Hydrobromide (Citalopram Hydrobromide) 20 Mg Tab, 20 MG PO BID, #30 11/02/13 Aspirin (Aspirin Ec Low Dose) 81 Mg Tab, 81 MG PO DAILY, #30 9/1/14 Ibuprofen (Ibuprofen) 600 Mg Tab, 600 MG PO PRN, #120 11/02/13 Enalapril Maleate (Enalapril Maleate) 20 Mg Tab, 20 MG PO DAILY, #30 11/02/13 Amitriptyline Hcl (Amitriptyline Hcl) 25 Mg Tab, 25 MG PO BID, #60 11/02/13 Gabapentin (Gabapentin) 300 Mg Cap, 300 MG PO TID, #90 11/02/13 Lurasidone Hcl (LATUDA) 80 Mg Tab, 80 MG PO DAILY, #60 11/02/13 Current Medications Current Medications Medications (Trade) Dose Ordered Sig/Vicente Route PRN Reason Start Time Stop Time Status Last Admin Aspirin 81 mg DAILY PO 06/20/24 10:00 06/19/24 20:30 DC Atorvastatin Calcium (Lipitor) 40 mg HS PO 06/19/24 22:00 06/19/24 22:06 Morphine Sulfate 2 mg Q30MP PRN IV FOR CHEST PAIN 06/19/24 18:00 Acetaminophen (Tylenol Tablet) 650 mg Q6HP PRN PO MILD PAIN (1-3 PAIN SCALE) 06/19/24 18:00 Nitroglycerin (Ntrostat Sublingual) 0.4 mg Q5MINP PRN SL FOR CHEST PAIN 06/19/24 18:00 Ondansetron HCl (Zofran) 4 mg Q4HP PRN IV NAUSEA / VOMITING 06/19/24 18:00 Nitroglycerin (Ntrostat Sublingual) 0.4 mg Q5MINP PRN SL FOR CHEST PAIN 06/19/24 18:00 06/19/24 20:31 DC Morphine Sulfate 2 mg Q30M PRN IV FOR CHEST PAIN 06/19/24 18:00 06/19/24 20:31 DC Ceftriaxone Sodium 50 ml @ 100 mls/hr DAILY@09 IV 06/20/24 09:00 06/20/24 09:08 Metronidazole 100 ml @ 100 mls/hr Q8HR IV 06/19/24 22:00 06/20/24 05:55 Enoxaparin Sodium (Lovenox) 40 mg DAILY SC 06/20/24 10:00 06/20/24 09:41 Amitriptyline HCl (Elavil Tablet) 25 mg BID PO 06/19/24 22:00 06/20/24 09:39 Aspirin (Ecotrin Enteric Coated Tablet) 81 mg DAILY PO 06/20/24 10:00 06/20/24 09:39 Citalopram Hydrobromide (CeleXA TABLET) 20 mg BID PO 06/19/24 22:00 06/20/24 09:39 Gabapentin (Neurontin Capsule) 300 mg TID PO 06/19/24 22:00 06/20/24 06:07 Triamterene/HCTZ (Dyazide 37.5/ 25MG Capsule) 1 cap DAILY PO 06/20/24 10:00 Quetiapine Fumarate (SEROquel TABLET) 50 mg HS PO 06/19/24 22:00 06/19/24 22:05 Enalapril Maleate (Vasotec Tablet) 20 mg DAILY PO 06/20/24 10:00 Patient Own Medication 80 mg DAILY PO 06/20/24 10:00 Patient Own Medication 20 mg DAILY PO 06/20/24 10:00 06/19/24 20:36 DC Levothyroxine Sodium (Synthroid Tablet) 25 mcg QAM@0600 PO 06/20/24 06:00 06/20/24 06:07 Divalproex Sodium (Depakote "Dr" Tablet) 1,000 mg BID PO 06/19/24 22:00 06/20/24 09:39 Hydroxyzine Pamoate (Vistaril Oral) 50 mg TID PO 06/19/24 22:00 06/20/24 06:07 Pantoprazole Sodium (Protonix) 40 mg DAILY IV 06/19/24 18:30 06/20/24 09:38 Review of Systems Constitutional: No symptom reported Ears, Nose, & Throat: No symptom reported Eyes: No symptom reported Neurological: No symptoms reported Pulmonary/Respiratory: No symptom reported Cardiovascular: Chest pain Gastrointestinal: Epigastric pain, nausea vomiting Genitourinary: No symptom reported Musculoskeletal: No symptom reported Skin: No symptom reported Psychiatric: No symptom reported Endocrine: No symptom reported Hematologic/Lymphatic: No symptom reported Vital Signs Vital Signs Date Time Temp Pulse Resp B/P (MAP) Pulse Ox O2 Delivery O2 Flow Rate FiO2 06/20/24 12:38 98.3 83 16 104/44 (64) 97 98.3 06/20/24 08:00 Room Air* 0 21 Physical Exam INITIAL VITAL SIGNS: Reviewed by me GENERAL: Alert and interactive. Morbid obese HEAD: Head is normocephalic and atraumatic. EYES: EOMI, PERRL. No scleral icterus. No conjunctival injection. ENT: Moist mucous membranes. NECK: Supple, No masses, Full range of motion. RESPIRATORY: No tachypnea. Clear breath sounds bilaterally. No wheezing, rales, rhonchi. CV: Regular rate and rhythm. No shortness of breath, no dyspnea, no orthopnea, no edema GI/: Active bowel sounds, soft, nondistended, nontender. No guarding. INTEGUMENTARY: Warm and dry. No obvious rashes. NEUROLOGIC: Alert and oriented. Face is symmetric. Speech is normal. Moves all extremities equally. Labs/Diagnostic Data Labs Test 06/20/24 05:26 06/20/24 03:00 06/19/24 21:13 06/19/24 16:22 Range/Units White Blood Count 13.1 H 4.4-10.8 10^3/uL Red Blood Count 4.94 4.0-5.20 10^6/uL Hemoglobin 14.2 # 12.2-16.2 g/dL Hematocrit 42.0 # 36.0-46.0 % Mean Corpuscular Volume 85.1 80.0-100.0 fL Mean Corpuscular Hemoglobin 28.7 28.0-32.0 pg Mean Corpuscular Hemoglobin Concent 33.7 32.0-36.0 g/dL Red Cell Distribution Width 13.8 11.8-14.3 % Platelet Count 169 140-450 10^3/uL Mean Platelet Volume 8.9 6.9-10.8 fL Neutrophils (%) (Auto) 42.2 37.0-80.0 % Lymphocytes (%) (Auto) 45.3 10.0-50.0 % Monocytes (%) (Auto) 10.9 0.0-12.0 % Eosinophils (%) (Auto) 0.9 0.0-7.0 % Basophils (%) (Auto) 0.7 0.0-2.0 % Neutrophils # (Auto) 5.5 1.6-8.6 10 ^3/uL Lymphocytes # (Auto) 5.9 H 0.4-5.4 10 ^3/uL Monocytes # (Auto) 1.4 H 0-1.3 10 ^3/uL Eosinophils # (Auto) 0.1 0-0.8 10 ^3/uL Basophils # (Auto) 0.1 0-0.2 10 ^3/uL Nucleated Red Blood Cells 0.1 % Sodium Level 140 136-145 mmol/L Potassium Level 3.1 L 3.5-5.1 mmol/L Chloride Level 106 98-107 mmol/L Carbon Dioxide Level 23 20-31 mmol/L Anion Gap 11 5-15 Blood Urea Nitrogen 16 9-23 mg/dL Creatinine 1.02 0.550-1.02 mg/dL Glomerular Filtration Rate Calc 62 >90 mL/min BUN/Creatinine Ratio 15.7 10.0-20.0 Serum Glucose 103 74-106 mg/dL Calcium Level 9.1 8.7-10.4 mg/dL Magnesium Level 1.9 1.6-2.6 mg/dL Triglycerides Level 52 < 150 mg/dL Cholesterol Level 153 < 200 mg/dL LDL Cholesterol 82 < 100 mg/dL HDL Cholesterol 49 40-59 mg/dL Urine Color Yellow Yellow Urine Clarity Turbid H Clear Urine pH 6.5 5.0-9.0 Urine Specific [place] 1.025 1.001-1.035 Urine Protein 1+ H Negative Urine Ketones 1+ H Negative Urine Blood Negative Negative /uL Urine Nitrite Negative Negative Urine Bilirubin Negative Negative Urine Urobilinogen 4 H Negative mg/dL Urine Leukocyte Esterase 2+ Negative /uL Urine RBC 2 0 - 4 /hpf Urine Microscopic WBC 7 H 0-5 /HPF Urine Squamous Epithelial Cells Few <5 /hpf Urine Bacteria None seen None Seen /hpf Urine Hyaline Casts Mod 0 - 2 /lpf Urine Mucus Few None Seen Urine Glucose Normal Normal mg/dL Urine Opiates Screen Pos NEGATIVE Urine Fentanyl Screen Neg NEGATIVE Urine Barbiturates Screen Neg NEGATIVE Urine Phencyclidine Screen Neg NEGATIVE Urine Amphetamines Screen Neg NEGATIVE Urine Benzodiazepines Screen Neg NEGATIVE Urine Cocaine Screen Neg NEGATIVE Urine Cannabinoids Screen Neg NEGATIVE Lactic Acid Level 2.0 0.4-2.0 mmol/L Troponin I High Sensitivity 42 *H </=34 ng/L Hemoglobin A1c 5.2 <5.7 % A1C Aspartate Amino Transferase (AST) 101 H 13-40 U/L Alanine Aminotransferase (ALT) 85 H 7-40 U/L Alkaline Phosphatase 107 46-116 U/L Amylase Level 100 30-118 U/L Lipase 31 12-53 U/L Thyroid Stimulating Hormone (TSH) 3.40 0.55-4.78 uIU/mL PROCEDURE(s): CXRP - CHEST PORTABLE REASON: sob ORDER NUMBER(s): [id number], ACCESSION NUMBER(s): [id number] CHEST RADIOGRAPH Indication: sob Technique: Single frontal view of the chest was obtained Comparison: None FINDINGS: Lines and Tubes: None Lungs: No focal consolidation. Pleura: No effusion. No pneumothorax. Cardiomediastinal contours: Unremarkable Bones: No acute osseous abnormality. IMPRESSION: 1. No acute cardiopulmonary disease. Assessment Chest pain to rule out ACS NSTEMI rule out type 1 Sepsis, likely UTI Transaminitis Hypertension Hyperlipidemia Morbid obesity Plan/Recommendation Plan/Recommendation (Dr. Luu): * Echocardiogram to evaluate cardiac function * Chest pain protocol, lovenox, aspirin and statins * BRIGID score 4, HEART Score 4 * Trend troponin, monitor EKG * LHC on 06/22/24 Given the patient's clinical presentation, positive troponins, elevated BRIGID score and heart score associated with significant comorbidities, the patient may benefit to undergone a ischemic workup to rule out CAD. The procedure was discussed with the patient in full detail including risks and benefits. Risks include but are not limited to bleeding, contrast-induced nephropathy, stroke, and even . This medical document was created using an electronic medical record system with voice recognition software and computerized dictation system. Although this document has been carefully reviewed, there might still be some phonetic and typographical errors. Occasional wrong-word or ``sound-alike substitutions may have occurred due to the inherent limitations of voice recognition software. These areas are purely typographical due to imperfections of the software programs and do not reflect any compromise in the patient's medical care. Please read the chart carefully and recognize, using context, where these substitutions have occurred. Plan discussed with: Patient Plan discussed with: Patient NYHA Physical activity limitations: NA Date of Service: Jun 20, 2024 Billing Provider: EVELYN LUU MD Cardiology Common Codes: CONSULT ONLY Cardiology Consultation Codes: [id number] CONSULT <45MIN [employer] Jun 20, 2024 15:29
--- NOTE | 2024-06-20 18:32 | DVHINCON2 ---
Date of service: Jun 20, [address] Rodriguez Reason for Consultation Abdominal pain nausea emesis History of Present Illness This 63-year-old female presented with a history of abdominal pain in the periumbilical area in the epigastrium with rigidity onto the no nasal with [place] anorexia and some vomiting. No hematemesis or melena Has complaints of some constipation Patient has history of right breast cancer GERD and depression and lupus and hypertension and right lower extremity DVT Past Medical History Hypertension GERD depression Past Surgical History Breast cancer and tubal ligation Family History: Cancer G8 MOTHER (OVARIAN) Maternal Grandmother (Ovarian) Maternal Aunt (Leukemia) Maternal Uncle Family history: Cardiovascular disease G8 FATHER Family History Cancer in the mother with ovarian cancer grandmother with ovarian cancer and leukemia Social History Denies smoking or drinking Allergies: Coded Allergies: Ibuprofen (Verified Adverse Reaction, Mild, 06/19/24) Home Meds Active Scripts Hydrochlorothiazide W/Triamter (Triamterene/Hydrochloroth) 1 Tab Tab, 1 TAB PO DAILY, #30 TAB 5 Refills Prov:KATHIE THOMPSON N.P. 11/02/13 [Protonix] No Conflict Check, 20 MG PO DAILY Prov:KATHIE THOMPSON N.P. 11/02/13 Quetiapine Fumerate (Seroquel) 25 Mg Tab, 50 MG PO HS, #60 Prov:KATHIE THOMPSONPSaeed 11/02/13 Reported Medications Hydroxyzine Pamoate (Hydroxyzine Pamoate) 50 Mg Cap, 1 CAP PO TID 06/19/24 Levothyroxine Sodium (Levothyroxine Sodium) 25 Mcg Tab, 1 TAB PO DAILY 06/19/24 Divalproex Sodium (Divalproex Sodium) 500 Mg Tab, 2 TAB PO BID 06/19/24 Citalopram Hydrobromide (Citalopram Hydrobromide) 20 Mg Tab, 20 MG PO BID, #30 11/02/13 Aspirin (Aspirin Ec Low Dose) 81 Mg Tab, 81 MG PO DAILY, #30 11/02/13 Ibuprofen (Ibuprofen) 600 Mg Tab, 600 MG PO PRN, #120 11/02/13 Enalapril Maleate (Enalapril Maleate) 20 Mg Tab, 20 MG PO DAILY, #30 11/02/13 Amitriptyline Hcl (Amitriptyline Hcl) 25 Mg Tab, 25 MG PO BID, #60 11/02/13 Gabapentin (Gabapentin) 300 Mg Cap, 300 MG PO TID, #90 11/02/13 Lurasidone Hcl (LATUDA) 80 Mg Tab, 80 MG PO DAILY, #60 11/02/13 Current Medications Current Medications Medications (Trade) Dose Ordered Sig/Vicente Route PRN Reason Start Time Stop Time Status Last Admin Aspirin 81 mg DAILY PO 06/20/24 10:00 06/19/24 20:30 DC Atorvastatin Calcium (Lipitor) 40 mg HS PO 06/19/24 22:00 06/19/24 22:06 Ceftriaxone Sodium 50 ml @ 100 mls/hr DAILY@09 IV 06/20/24 09:00 06/20/24 09:08 Metronidazole 100 ml @ 100 mls/hr Q8HR IV 06/19/24 22:00 06/20/24 15:30 Enoxaparin Sodium (Lovenox) 40 mg DAILY SC 06/20/24 10:00 06/20/24 09:41 Amitriptyline HCl (Elavil Tablet) 25 mg BID PO 06/19/24 22:00 06/20/24 09:39 Aspirin (Ecotrin Enteric Coated Tablet) 81 mg DAILY PO 06/20/24 10:00 06/20/24 09:39 Citalopram Hydrobromide (CeleXA TABLET) 20 mg BID PO 06/19/24 22:00 06/20/24 09:39 Gabapentin (Neurontin Capsule) 300 mg TID PO 06/19/24 22:00 06/20/24 15:30 Triamterene/HCTZ (Dyazide 37.5/ 25MG Capsule) 1 cap DAILY PO 06/20/24 10:00 Quetiapine Fumarate (SEROquel TABLET) 50 mg HS PO 06/19/24 22:00 06/19/24 22:05 Enalapril Maleate (Vasotec Tablet) 20 mg DAILY PO 06/20/24 10:00 Patient Own Medication 80 mg DAILY PO 06/20/24 10:00 Patient Own Medication 20 mg DAILY PO 06/20/24 10:00 06/19/24 20:36 DC Levothyroxine Sodium (Synthroid Tablet) 25 mcg QAM@0600 PO 06/20/24 06:00 06/20/24 06:07 Divalproex Sodium (Depakote "Dr" Tablet) 1,000 mg BID PO 06/19/24 22:00 06/20/24 09:39 Hydroxyzine Pamoate (Vistaril Oral) 50 mg TID PO 06/19/24 22:00 06/20/24 15:42 Pantoprazole Sodium (Protonix) 40 mg DAILY IV 06/19/24 18:30 06/20/24 09:38 Review of Systems Noncontributory Vital Signs Vital Signs Date Time Temp Pulse Resp B/P (MAP) Pulse Ox O2 Delivery O2 Flow Rate FiO2 06/20/24 17:00 98.5 78 16 109/44 (65) 96 98.5 06/20/24 08:00 Room Air* 0 21 Physical Exam Moderately built and nourished female in no acute distress slightly obese Vitals stable Lungs clear Cardiovascular unremarkable Abdomen is slightly obese but soft some mild tenderness in the periumbilical area no rigidity no guarding no masses bowel sounds normal Extremities no edema Neuro grossly intact Labs/Diagnostic Data Labs Test 06/20/24 05:26 06/20/24 03:00 06/19/24 21:13 06/19/24 16:22 Range/Units White Blood Count 13.1 H 4.4-10.8 10^3/uL Red Blood Count 4.94 4.0-5.20 10^6/uL Hemoglobin 14.2 # 12.2-16.2 g/dL Hematocrit 42.0 # 36.0-46.0 % Mean Corpuscular Volume 85.1 80.0-100.0 fL Mean Corpuscular Hemoglobin 28.7 28.0-32.0 pg Mean Corpuscular Hemoglobin Concent 33.7 32.0-36.0 g/dL Red Cell Distribution Width 13.8 11.8-14.3 % Platelet Count 169 140-450 10^3/uL Mean Platelet Volume 8.9 6.9-10.8 fL Neutrophils (%) (Auto) 42.2 37.0-80.0 % Lymphocytes (%) (Auto) 45.3 10.0-50.0 % Monocytes (%) (Auto) 10.9 0.0-12.0 % Eosinophils (%) (Auto) 0.9 0.0-7.0 % Basophils (%) (Auto) 0.7 0.0-2.0 % Neutrophils # (Auto) 5.5 1.6-8.6 10 ^3/uL Lymphocytes # (Auto) 5.9 H 0.4-5.4 10 ^3/uL Monocytes # (Auto) 1.4 H 0-1.3 10 ^3/uL Eosinophils # (Auto) 0.1 0-0.8 10 ^3/uL Basophils # (Auto) 0.1 0-0.2 10 ^3/uL Nucleated Red Blood Cells 0.1 % Sodium Level 140 136-145 mmol/L Potassium Level 3.1 L 3.5-5.1 mmol/L Chloride Level 106 98-107 mmol/L Carbon Dioxide Level 23 20-31 mmol/L Anion Gap 11 5-15 Blood Urea Nitrogen 16 9-23 mg/dL Creatinine 1.02 0.550-1.02 mg/dL Glomerular Filtration Rate Calc 62 >90 mL/min BUN/Creatinine Ratio 15.7 10.0-20.0 Serum Glucose 103 74-106 mg/dL Calcium Level 9.1 8.7-10.4 mg/dL Magnesium Level 1.9 1.6-2.6 mg/dL Troponin I High Sensitivity 54 *H </=34 ng/L Triglycerides Level 52 < 150 mg/dL Cholesterol Level 153 < 200 mg/dL LDL Cholesterol 82 < 100 mg/dL HDL Cholesterol 49 40-59 mg/dL Urine Color Yellow Yellow Urine Clarity Turbid H Clear Urine pH 6.5 5.0-9.0 Urine Specific [place] 1.025 1.001-1.035 Urine Protein 1+ H Negative Urine Ketones 1+ H Negative Urine Blood Negative Negative /uL Urine Nitrite Negative Negative Urine Bilirubin Negative Negative Urine Urobilinogen 4 H Negative mg/dL Urine Leukocyte Esterase 2+ Negative /uL Urine RBC 2 0 - 4 /hpf Urine Microscopic WBC 7 H 0-5 /HPF Urine Squamous Epithelial Cells Few <5 /hpf Urine Bacteria None seen None Seen /hpf Urine Hyaline Casts Mod 0 - 2 /lpf Urine Mucus Few None Seen Urine Glucose Normal Normal mg/dL Urine Opiates Screen Pos NEGATIVE Urine Fentanyl Screen Neg NEGATIVE Urine Barbiturates Screen Neg NEGATIVE Urine Phencyclidine Screen Neg NEGATIVE Urine Amphetamines Screen Neg NEGATIVE Urine Benzodiazepines Screen Neg NEGATIVE Urine Cocaine Screen Neg NEGATIVE Urine Cannabinoids Screen Neg NEGATIVE Lactic Acid Level 2.0 0.4-2.0 mmol/L Hemoglobin A1c 5.2 <5.7 % A1C Aspartate Amino Transferase (AST) 101 H 13-40 U/L Alanine Aminotransferase (ALT) 85 H 7-40 U/L Alkaline Phosphatase 107 46-116 U/L Amylase Level 100 30-118 U/L Lipase 31 12-53 U/L Thyroid Stimulating Hormone (TSH) 3.40 0.55-4.78 uIU/mL Assessment 63-year-old female with a history of hypertension lupus GERD right breast cancer admitted with the complaints of periumbilical pain with nausea anorexia unable to even drink water apparently with without pain there was also some pain in the chest in the mediastinum. Patient has history of hypertension GERD and depression and lupus and strong family history of cancer CT scan showed possible fatty liver as well as fecal burden AST ALT are increased probably from nonalcoholic steatohepatitis or NAFLD Plan/Recommendation Patient is going for coronary angiogram on Saturday because of the high troponin and in the mediastinal discomfort We will recommend to follow the liver functions if symptoms persist may need repeat the CAT scan with contrast or an MRI of the liver and pancreas lipase and LFTs for unremarkable except for slightly increased AST and ALT May also need endoscopic workup in case nausea vomiting in the symptoms persist Treat with PPIs in the meantime Thank you Dr. Kidd Plan discussed with: Patient SHANKAR KIDD MD Jun 20, 2024 18:32
[2024-06-20 19:39] LABS: INR 1.31 (0.9-1.15); Partial Thromboplastin Time 30.2 SEC (24.5-34.5); Prothrombin Time 13.5 sec (9.3-11.8)
--- NOTE | 2024-06-20 20:20 | DVHINCON2 ---
Date Seen: Jun 20, 2024 Referring Physician MD Nadir Reason for Consultation Elevated troponin History of Present Illness This is a 63-year-old female with a PMH of hypertension, lupus, GERD, depression, right breast cancer, and DVT who presented to the ED with complaints of chest pain. The patient reports chest pressure, "feels like there's trapped air in the chest" associated with nausea, vomiting, epigastric pain, radiating to the back started six days ago. In the emergency department the patient underwent a 12 lead ECG revealing sinus rhythm with atrial premature complex, prolonged QT interval. Mild troponins 42/51/42. Chest x-ray is remarkable. Upon assessment, the patient reports chest pressure pain is worse during inhalation and exertion. Denies history of NV or CAD. Patient was admitted to the hospital. I am asked to consult on this patient. Past Medical History As stated in HPI Past Surgical History Tubal ligation Family History: Cancer G8 MOTHER (OVARIAN) Maternal Grandmother (Ovarian) Maternal Aunt (Leukemia) Maternal Uncle Family history: Cardiovascular disease G8 FATHER Allergies: Coded Allergies: Ibuprofen (Verified Adverse Reaction, Mild, 06/19/24) Home Meds Active Scripts Hydrochlorothiazide W/Triamter (Triamterene/Hydrochloroth) 1 Tab Tab, 1 TAB PO DAILY, #30 TAB 5 Refills Prov:KATHIE THOMPSON N.P. 11/02/13 [Protonix] No Conflict Check, 20 MG PO DAILY Prov:KATHIE THOMPSON N.P. 11/02/13 Quetiapine Fumerate (Seroquel) 25 Mg Tab, 50 MG PO HS, #60 Prov:KATHIE THOMPSONPSaeed 11/02/13 Reported Medications Hydroxyzine Pamoate (Hydroxyzine Pamoate) 50 Mg Cap, 1 CAP PO TID 06/19/24 Levothyroxine Sodium (Levothyroxine Sodium) 25 Mcg Tab, 1 TAB PO DAILY 06/19/24 Divalproex Sodium (Divalproex Sodium) 500 Mg Tab, 2 TAB PO BID 06/19/24 Citalopram Hydrobromide (Citalopram Hydrobromide) 20 Mg Tab, 20 MG PO BID, #30 11/02/13 Aspirin (Aspirin Ec Low Dose) 81 Mg Tab, 81 MG PO DAILY, #30 11/02/13 Ibuprofen (Ibuprofen) 600 Mg Tab, 600 MG PO PRN, #120 11/02/13 Enalapril Maleate (Enalapril Maleate) 20 Mg Tab, 20 MG PO DAILY, #30 11/02/13 Amitriptyline Hcl (Amitriptyline Hcl) 25 Mg Tab, 25 MG PO BID, #60 11/02/13 Gabapentin (Gabapentin) 300 Mg Cap, 300 MG PO TID, #90 11/02/13 Lurasidone Hcl (LATUDA) 80 Mg Tab, 80 MG PO DAILY, #60 11/02/13 Current Medications Current Medications Medications (Trade) Dose Ordered Sig/Vicente Route PRN Reason Start Time Stop Time Status Last Admin Aspirin 81 mg DAILY PO 06/20/24 10:00 06/19/24 20:30 DC Atorvastatin Calcium (Lipitor) 40 mg HS PO 06/19/24 22:00 06/19/24 22:06 Ceftriaxone Sodium 50 ml @ 100 mls/hr DAILY@09 IV 06/20/24 09:00 06/20/24 09:08 Metronidazole 100 ml @ 100 mls/hr Q8HR IV 06/19/24 22:00 06/20/24 15:30 Enoxaparin Sodium (Lovenox) 40 mg DAILY SC 06/20/24 10:00 06/20/24 18:53 DC 06/20/24 09:41 Amitriptyline HCl (Elavil Tablet) 25 mg BID PO 06/19/24 22:00 06/20/24 09:39 Aspirin (Ecotrin Enteric Coated Tablet) 81 mg DAILY PO 06/20/24 10:00 06/20/24 09:39 Citalopram Hydrobromide (CeleXA TABLET) 20 mg BID PO 06/19/24 22:00 06/20/24 09:39 Gabapentin (Neurontin Capsule) 300 mg TID PO 06/19/24 22:00 06/20/24 15:30 Triamterene/HCTZ (Dyazide 37.5/ 25MG Capsule) 1 cap DAILY PO 06/20/24 10:00 Quetiapine Fumarate (SEROquel TABLET) 50 mg HS PO 06/19/24 22:00 06/19/24 22:05 Enalapril Maleate (Vasotec Tablet) 20 mg DAILY PO 06/20/24 10:00 Patient Own Medication 80 mg DAILY PO 06/20/24 10:00 Patient Own Medication 20 mg DAILY PO 06/20/24 10:00 06/19/24 20:36 DC Levothyroxine Sodium (Synthroid Tablet) 25 mcg QAM@0600 PO 06/20/24 06:00 06/20/24 06:07 Divalproex Sodium (Depakote "Dr" Tablet) 1,000 mg BID PO 06/19/24 22:00 06/20/24 09:39 Hydroxyzine Pamoate (Vistaril Oral) 50 mg TID PO 06/19/24 22:00 06/20/24 15:42 Enoxaparin Sodium (Lovenox) 100 mg Q12HR SC 06/20/24 22:00 Sodium Chloride 1,000 ml @ 75 mls/hr [id number] IV 06/20/24 19:00 Review of Systems Constitutional: No symptom reported Ears, Nose, & Throat: No symptom reported Eyes: No symptom reported Neurological: No symptoms reported Pulmonary/Respiratory: No symptom reported Cardiovascular: Chest pain Gastrointestinal: Epigastric pain, nausea vomiting Genitourinary: No symptom reported Musculoskeletal: No symptom reported Skin: No symptom reported Psychiatric: No symptom reported Endocrine: No symptom reported Hematologic/Lymphatic: No symptom reported Vital Signs Vital Signs Date Time Temp Pulse Resp B/P (MAP) Pulse Ox O2 Delivery O2 Flow Rate FiO2 06/20/24 17:00 98.5 78 16 109/44 (65) 96 98.5 06/20/24 08:00 Room Air* 0 21 Physical Exam GENERAL: Alert and oriented x 3. No acute distress. Morbid obese. EYES: PERRL, EOMI. Anicteric. HENT: Moist mucous membranes. LUNGS: Clear to auscultation bilaterally. CARDIOVASCULAR: Regular rate and rhythm. ABDOMEN: Soft, non-tender and non-distended. EXTREMITIES: No edema. NEUROLOGIC: No focal neurological deficits. SKIN: Warm, dry. Labs/Diagnostic Data Labs Test 06/20/24 19:08 06/20/24 05:26 06/20/24 03:00 06/19/24 21:13 Range/Units Prothrombin Time 13.5 H 9.3-11.8 sec Prothrombin Time INR 1.31 H 0.9-1.15 Activated Partial Thromboplast Time 30.2 24.5-34.5 SEC White Blood Count 13.1 H 4.4-10.8 10^3/uL Red Blood Count 4.94 4.0-5.20 10^6/uL Hemoglobin 14.2 # 12.2-16.2 g/dL Hematocrit 42.0 # 36.0-46.0 % Mean Corpuscular Volume 85.1 80.0-100.0 fL Mean Corpuscular Hemoglobin 28.7 28.0-32.0 pg Mean Corpuscular Hemoglobin Concent 33.7 32.0-36.0 g/dL Red Cell Distribution Width 13.8 11.8-14.3 % Platelet Count 169 140-450 10^3/uL Mean Platelet Volume 8.9 6.9-10.8 fL Neutrophils (%) (Auto) 42.2 37.0-80.0 % Lymphocytes (%) (Auto) 45.3 10.0-50.0 % Monocytes (%) (Auto) 10.9 0.0-12.0 % Eosinophils (%) (Auto) 0.9 0.0-7.0 % Basophils (%) (Auto) 0.7 0.0-2.0 % Neutrophils # (Auto) 5.5 1.6-8.6 10 ^3/uL Lymphocytes # (Auto) 5.9 H 0.4-5.4 10 ^3/uL Monocytes # (Auto) 1.4 H 0-1.3 10 ^3/uL Eosinophils # (Auto) 0.1 0-0.8 10 ^3/uL Basophils # (Auto) 0.1 0-0.2 10 ^3/uL Nucleated Red Blood Cells 0.1 % Sodium Level 140 136-145 mmol/L Potassium Level 3.1 L 3.5-5.1 mmol/L Chloride Level 106 98-107 mmol/L Carbon Dioxide Level 23 20-31 mmol/L Anion Gap 11 5-15 Blood Urea Nitrogen 16 9-23 mg/dL Creatinine 1.02 0.550-1.02 mg/dL Glomerular Filtration Rate Calc 62 >90 mL/min BUN/Creatinine Ratio 15.7 10.0-20.0 Serum Glucose 103 74-106 mg/dL Calcium Level 9.1 8.7-10.4 mg/dL Magnesium Level 1.9 1.6-2.6 mg/dL Troponin I High Sensitivity 54 *H </=34 ng/L Triglycerides Level 52 < 150 mg/dL Cholesterol Level 153 < 200 mg/dL LDL Cholesterol 82 < 100 mg/dL HDL Cholesterol 49 40-59 mg/dL Urine Color Yellow Yellow Urine Clarity Turbid H Clear Urine pH 6.5 5.0-9.0 Urine Specific [place] 1.025 1.001-1.035 Urine Protein 1+ H Negative Urine Ketones 1+ H Negative Urine Blood Negative Negative /uL Urine Nitrite Negative Negative Urine Bilirubin Negative Negative Urine Urobilinogen 4 H Negative mg/dL Urine Leukocyte Esterase 2+ Negative /uL Urine RBC 2 0 - 4 /hpf Urine Microscopic WBC 7 H 0-5 /HPF Urine Squamous Epithelial Cells Few <5 /hpf Urine Bacteria None seen None Seen /hpf Urine Hyaline Casts Mod 0 - 2 /lpf Urine Mucus Few None Seen Urine Glucose Normal Normal mg/dL Urine Opiates Screen Pos NEGATIVE Urine Fentanyl Screen Neg NEGATIVE Urine Barbiturates Screen Neg NEGATIVE Urine Phencyclidine Screen Neg NEGATIVE Urine Amphetamines Screen Neg NEGATIVE Urine Benzodiazepines Screen Neg NEGATIVE Urine Cocaine Screen Neg NEGATIVE Urine Cannabinoids Screen Neg NEGATIVE Lactic Acid Level 2.0 0.4-2.0 mmol/L Test 06/19/24 16:22 Range/Units Hemoglobin A1c 5.2 <5.7 % A1C Aspartate Amino Transferase (AST) 101 H 13-40 U/L Alanine Aminotransferase (ALT) 85 H 7-40 U/L Alkaline Phosphatase 107 46-116 U/L Amylase Level 100 30-118 U/L Lipase 31 12-53 U/L Thyroid Stimulating Hormone (TSH) 3.40 0.55-4.78 uIU/mL Assessment Chest pain to rule out ACS. NSTEMI rule out type 1. Sepsis, likely UTI. Transaminitis. Hypertension. Hyperlipidemia. Morbid obesity. Plan/Recommendation I agree with your ongoing assessment and care of plan. Patient has been seen by Camille Villanueva NP on my behalf. We have discussed the plan with the patient. Given the patient's clinical presentation, positive troponins, elevated BRIGID score and heart score associated with significant comorbidities, the patient may benefit to undergone a ischemic workup to rule out CAD. The procedure was discussed with the patient in full detail including risks and benefits. Risks include but are not limited to bleeding, contrast-induced nephropathy, stroke, and even . Echocardiogram to evaluate cardiac function. Chest pain protocol, lovenox, aspirin and statins. BRIGID score 4, HEART Score 4. Trend troponin, monitor EKG. [facility] on 06/22/24. Additional plan as per the hospital course. Plan discussed with: Patient NYHA Physical activity limitations: NA Date of Service: Jun 20, 2024 Billing Provider: EVELYN LUU MD Cardiology Common Codes: [id number] INP/OBS CARE (High) Cardiology Consultation Codes: [id number] CONSULT <45MIN EVELYN LUU MD Jun 20, 2024 20:20
[2024-06-20] MEDS: SODIUM CHLORIDE 0.9% 1,000 ML IV SCH (22:26)
[2024-06-20] MEDS: HYDROcodone-ACET 5/325MG TAB PO ONE (22:33)
[2024-06-20] MEDS: ENOXAPARIN SOD 100 MG/1 ML SYRINGE SC SCH (22:36)
--- NOTE | 2024-06-20 23:50 | DVHSR ---
APPROVED REPORT EXAM: Two-dimensional and M-mode echocardiogram with Doppler and color Doppler. Blood Pressure: 103/39 mmHg INDICATION Chest Pain RISK FACTORS Obesity: Height: 5' 6", Weight: 230 DIMENSIONS LVDd3.5 (3.8-5.7cm)LA (2D)3.8 (1.9-4.0cm)Aortic Root2.9 (2.0-3.7cm) LVDs1.9 (2.5-4.0cm)LA (MM) (1.9-4.0cm)Aortic Cusp Exc1.4 (1.5-2.0cm) EF (%) 75.0 (55-70%)Rt. Atrium3.6 (1.9-4.0cm)Asc. Aorta cm IVSd1.4 (0.7-1.1cm)RV (D) (1.8-2.4cm) PWd1.4 (0.7-1.1cm) Mitral Valve MitralMitral Stenosis E wave1.10m/sMV Mean GR.3mmHg A wave1.30m/sMV Peak GR.7mmHg E/A ratio0.82D MVAcm2 DECEL [id number] 1/2 Pecm108ur IVRTmsDop MVA2.03cm2 Aortic Valve Aortic ValveAortic Stenosis V11.50m/[place] Mean GR.5mmHg V21.50m/[place] Peak GR.10mmHg LVOT Diameter2.0 (1.8-2.4cm)Doppler AVA3.14cm2 Pulmonic Valve V20.90m/s Conclusion NORMAL LV EF AND IS 70% POSTERIOR MITRAL LEAFLET AND ANNULUS IS CALCIFIED NORMAL AORTIC,TV AND PV NO EFFUSION NORMAL RV FUNCTION
[2024-06-21] VITALS (9 sets, daily range): BP systolic 92–122; BP diastolic 33–50; PULSE 71–88; RESP 15–18; TEMP 97.4–98.6; O2SAT 92–100
--- NOTE | 2024-06-21 08:03 | DVHPN2 ---
Subjective No cardiac events reported Reviewed: Care Plan, H&P, Labs, Medications, Previous Orders, Radiology Changes from previous H/P or p: No Changes Cardiovascular: Chest Pain Gastrointestinal: Nausea, Vomiting Objective Vitals Vital Signs Date Time Temp Pulse Resp B/P (MAP) Pulse Ox O2 Delivery O2 Flow Rate FiO2 06/21/24 05:00 97.4 73 18 119/50 (73) 98 97.4 06/20/24 20:00 Room Air* 0 21 Intake/Output Intake and Output 06/21/24 07:00 Intake Total 1110 ml Balance 1110 ml Intake Oral 860 ml IV Total 250 ml # Voids 4 # Bowel Movements 1 General Appearance: Alert, Oriented X3, Cooperative, No acute distress Lungs: Clear to auscultation Cardiovascular: Regular rate, Normal S1, Normal S2 Medications Current Medications Medications Dose Ordered Sig/Vicente Route Start Time Stop Time Status Last Admin Dose Admin Atorvastatin Calcium 40 mg HS PO 06/19/24 22:00 06/20/24 22:32 40 MG Morphine Sulfate 2 mg Q30MP PRN IV 06/19/24 18:00 Acetaminophen 650 mg Q6HP PRN PO 06/19/24 18:00 Nitroglycerin 0.4 mg Q5MINP PRN SL 06/19/24 18:00 Ondansetron HCl 4 mg Q4HP PRN IV 06/19/24 18:00 Ceftriaxone Sodium 50 ml @ 100 mls/hr DAILY@09 IV 06/20/24 09:00 06/20/24 09:08 100 MLS/HR Metronidazole 100 ml @ 100 mls/hr Q8HR IV 06/19/24 22:00 06/21/24 06:30 100 MLS/HR Amitriptyline HCl 25 mg BID PO 06/19/24 22:00 06/20/24 22:31 25 MG Aspirin 81 mg DAILY PO 06/20/24 10:00 06/20/24 09:39 81 MG Citalopram Hydrobromide 20 mg BID PO 06/19/24 22:00 06/20/24 22:30 20 MG Gabapentin 300 mg TID PO 06/19/24 22:00 06/21/24 06:30 300 MG Triamterene/HCTZ 1 cap DAILY PO 06/20/24 10:00 Quetiapine Fumarate 50 mg HS PO 06/19/24 22:00 06/20/24 22:32 50 MG Enalapril Maleate 20 mg DAILY PO 06/20/24 10:00 Patient Own Medication 80 mg DAILY PO 06/20/24 10:00 Levothyroxine Sodium 25 mcg QAM@0600 PO 06/20/24 06:00 06/21/24 06:30 25 MCG Divalproex Sodium 1,000 mg BID PO 06/19/24 22:00 06/20/24 22:31 1,000 MG Hydroxyzine Pamoate 50 mg TID PO 06/19/24 22:00 06/21/24 06:30 50 MG Pantoprazole Sodium 40 mg DAILY IV 06/19/24 18:30 06/20/24 09:38 40 MG Enoxaparin Sodium 100 mg Q12HR SC 06/20/24 22:00 06/20/24 22:36 100 MG Sodium Chloride 1,000 ml @ 75 mls/hr [id number] IV 06/20/24 19:00 06/20/24 22:26 75 MLS/HR Laboratory Results Laboratory Tests 06/20/24 05:26 Coagulation Test 06/20/24 19:08 Prothrombin Time 13.5 sec (9.3-11.8) H Prothrombin Time INR 1.31 (0.9-1.15) H Activated Partial Thromboplast Time 30.2 SEC (24.5-34.5) Urinalysis Test 06/20/24 03:00 Urine Color Yellow (Yellow) Urine Clarity Turbid (Clear) H Urine pH 6.5 (5.0-9.0) Urine Specific [place] 1.025 (1.001-1.035) Urine Protein 1+ (Negative) H Urine Ketones 1+ (Negative) H Urine Blood Negative /uL (Negative) Urine Nitrite Negative (Negative) Urine Bilirubin Negative (Negative) Urine Urobilinogen 4 mg/dL (Negative) H Urine Leukocyte Esterase 2+ /uL (Negative) Urine RBC 2 /hpf (0 - 4) Urine Microscopic WBC 7 /HPF (0-5) H Urine Squamous Epithelial Cells Few /hpf (<5) Urine Bacteria None seen /hpf (None Seen) Urine Hyaline Casts Mod /lpf (0 - 2) Urine Mucus Few (None Seen) Urine Glucose Normal mg/dL (Normal) Assessment/Plan Assessment/Plan Chest pain to rule out ACS NSTEMI rule out type 1 Sepsis, likely UTI Transaminitis Hypertension Hyperlipidemia Morbid obesity Plan/Recommendation (Dr. Luu): * Echocardiogram to evaluate cardiac function * Chest pain protocol, lovenox, aspirin and statins * BRIGID score 4, HEART Score 4 * Trend troponin, monitor EKG * [facility] on 06/22/24 Given the patient's clinical presentation, positive troponins, elevated BRIGID score and heart score associated with significant comorbidities, the patient may benefit to undergone a ischemic workup to rule out CAD. The procedure was discussed with the patient in full detail including risks and benefits. Risks include but are not limited to bleeding, contrast-induced nephropathy, stroke, and even . Plan discussed with: Patient My Orders Orders - SILVESTRE KC Procedure Category Date Status Time Cardiolite Multiple NM 06/20/24 Logged 15:12 Npo Except For EDDIE 06/22/24 In Process Medications 00:01 Obtain Consent For: ORDERS 06/20/24 Transmitted 18:46 Hold Enoxaparin Day EDDIE 06/22/24 In Process Of Procedu 00:01 D/C Tlc EDDIE 06/20/24 In Process 18:46 Shave Both Groins EDDIE 06/20/24 In Process 18:46 Provide Education EDDIE 06/20/24 In Process Materials 18:46 Cl Left Heart Cath CL 06/22/24 Logged 08:00 Comprehensive LAB 06/22/24 Verified Metabolic Panel 04:00 Npo (Nothing By DIET 06/22/24 Transmitted Mouth) Diet Breakfast Obtain Consent For EDDIE 06/20/24 In Process Anesthesia 18:46 Enoxaparin Sodium PHA 06/20/24 In Process (Lovenox) 22:00 Sodium Chloride 0.9% PHA 06/20/24 In Process 19:00 Date of Service: Jun 21, 2024 Billing Provider: EVELYN LUU MD Common Visit Codes: CONSULT ONLY Consultation Codes: [id number] CONSULT <45MIN SILVESTRE KC Jun 21, 2024 08:03
--- NOTE | 2024-06-21 10:10 | DVHPN2 ---
Reviewed: Care Plan, H&P, Labs, Medications, Previous Orders, Radiology Changes from previous H/P or p: No Changes Cardiovascular: Chest Pain Gastrointestinal: Nausea, Vomiting Objective Vitals Vital Signs Date Time Temp Pulse Resp B/P (MAP) Pulse Ox O2 Delivery O2 Flow Rate FiO2 06/21/24 09:21 122/48 06/21/24 09:00 97.9 71 16 97 97.9 06/21/24 08:15 Room Air* 0 21 Intake/Output Intake and Output 06/21/24 07:00 Intake Total 1110 ml Balance 1110 ml Intake Oral 860 ml IV Total 250 ml # Voids 4 # Bowel Movements 1 General Appearance: Alert, Oriented X3, Cooperative, No acute distress Lungs: Clear to auscultation Cardiovascular: Regular rate, Normal S1, Normal S2 Medications Current Medications Medications Dose Ordered Sig/Vicente Route Start Time Stop Time Status Last Admin Dose Admin Atorvastatin Calcium 40 mg HS PO 06/19/24 22:00 06/20/24 22:32 40 MG Morphine Sulfate 2 mg Q30MP PRN IV 06/19/24 18:00 Acetaminophen 650 mg Q6HP PRN PO 06/19/24 18:00 Nitroglycerin 0.4 mg Q5MINP PRN SL 06/19/24 18:00 Ondansetron HCl 4 mg Q4HP PRN IV 06/19/24 18:00 Ceftriaxone Sodium 50 ml @ 100 mls/hr DAILY@09 IV 06/20/24 09:00 06/21/24 09:03 100 MLS/HR Metronidazole 100 ml @ 100 mls/hr Q8HR IV 06/19/24 22:00 06/21/24 06:30 100 MLS/HR Amitriptyline HCl 25 mg BID PO 06/19/24 22:00 06/21/24 09:19 25 MG Aspirin 81 mg DAILY PO 06/20/24 10:00 06/21/24 09:19 81 MG Citalopram Hydrobromide 20 mg BID PO 06/19/24 22:00 06/21/24 09:20 20 MG Gabapentin 300 mg TID PO 06/19/24 22:00 06/21/24 06:30 300 MG Triamterene/HCTZ 1 cap DAILY PO 06/20/24 10:00 06/21/24 09:21 1 CAP Quetiapine Fumarate 50 mg HS PO 06/19/24 22:00 06/20/24 22:32 50 MG Enalapril Maleate 20 mg DAILY PO 06/20/24 10:00 06/21/24 09:20 20 MG Patient Own Medication 80 mg DAILY PO 06/20/24 10:00 Levothyroxine Sodium 25 mcg QAM@0600 PO 06/20/24 06:00 06/21/24 06:30 25 MCG Divalproex Sodium 1,000 mg BID PO 06/19/24 22:00 06/21/24 09:19 1,000 MG Hydroxyzine Pamoate 50 mg TID PO 06/19/24 22:00 06/21/24 06:30 50 MG Pantoprazole Sodium 40 mg DAILY IV 06/19/24 18:30 06/21/24 09:15 40 MG Enoxaparin Sodium 100 mg Q12HR SC 06/20/24 22:00 Hold 06/20/24 22:36 100 MG Sodium Chloride 1,000 ml @ 75 mls/hr [id number] IV 06/20/24 19:00 06/21/24 08:20 75 MLS/HR Laboratory Results Laboratory Tests 06/20/24 05:26 Coagulation Test 06/20/24 19:08 Prothrombin Time 13.5 sec (9.3-11.8) H Prothrombin Time INR 1.31 (0.9-1.15) H Activated Partial Thromboplast Time 30.2 SEC (24.5-34.5) Urinalysis Test 06/20/24 03:00 Urine Color Yellow (Yellow) Urine Clarity Turbid (Clear) H Urine pH 6.5 (5.0-9.0) Urine Specific [place] 1.025 (1.001-1.035) Urine Protein 1+ (Negative) H Urine Ketones 1+ (Negative) H Urine Blood Negative /uL (Negative) Urine Nitrite Negative (Negative) Urine Bilirubin Negative (Negative) Urine Urobilinogen 4 mg/dL (Negative) H Urine Leukocyte Esterase 2+ /uL (Negative) Urine RBC 2 /hpf (0 - 4) Urine Microscopic WBC 7 /HPF (0-5) H Urine Squamous Epithelial Cells Few /hpf (<5) Urine Bacteria None seen /hpf (None Seen) Urine Hyaline Casts Mod /lpf (0 - 2) Urine Mucus Few (None Seen) Urine Glucose Normal mg/dL (Normal) Labs and/or images reviewed: Labs reviewed by me, Image(s) reviewed by me Assessment/Plan Assessment/Plan Sepsis unknown etiology: Blood cultures pending, urine cultures pending Possible colitis: Rocephin Flagyl Depression: Celexa, Seroquel, Depakote History of right breast cancer History of DVT right lower extremity, venous ultrasound negative for DVT during this visit History of lupus Pancreatitis ruled out lipase normal Slightly elevated troponin: Patient getting left heart catheterization by Dr. Humberto Estrada on 06/22/2024 Slightly elevated liver enzymes Chest x-ray negative Hypothyroidism Time spent 70 minutes Patient is full code Advanced care planning time 20 minutes Plan discussed with: Patient My Orders Orders - JAMES WARD MD Procedure Category Date Status Time Blood Culture HANNA 06/20/24 In Process 13:21 Urine Bacterial HANNA 06/20/24 In Process Culture 13:21 * Cardiology Consult CONS 06/20/24 Transmitted 13:21 * [facility] [employer] CONS 06/20/24 Transmitted 13:21 Date of Service: Jun 21, 2024 Billing Provider: JAMES AWRD MD Common Visit Codes: [id number] INP/OBS CARE(HIGH) JAMES WARD MD Jun 21, 2024 10:10
[2024-06-21 11:15] LABS: Basophils # (auto) 0.1 10 ^3/uL (0-0.2); Basophils % (auto) 1.1 % (0.0-2.0); Eosinophils # (auto) 0.2 10 ^3/uL (0-0.8); Eosinophils % (auto) 2.8 % (0.0-7.0); Hematocrit 39.8 % (36.0-46.0); Hemoglobin 13.4 g/dL (12.2-16.2); Lymphocytes # (auto) 3.1 10 ^3/uL (0.4-5.4); Lymphocytes % (auto) 46.6 % (10.0-50.0); Mean Corpuscular Hemoglobin 28.6 pg (28.0-32.0); Mean Corpuscular Hgb Conc. 33.8 g/dL (32.0-36.0); Mean Corpuscular Volume 84.6 fL (80.0-100.0); Monocytes # (auto) 0.9 10 ^3/uL (0-1.3); Monocytes % (auto) 14.3 % (0.0-12.0); Neutrophils # (auto) 2.3 10 ^3/uL (1.6-8.6); Neutrophils % (auto) 35.2 % (37.0-80.0); Nucleated Red Blood Cells % 0.2 %; Platelet Count (auto) 142 10^3/uL (140-450); Red Cell Distribution Width 13.4 % (11.8-14.3); White Blood Cell 6.6 10^3/uL (4.4-10.8)
[2024-06-21 11:34] LABS: Albumin 3.3 g/dL (3.2-4.8); Alkaline Phosphatase 71 U/L (46-116); Anion Gap 7 (5-15); BUN/Creatinine Ratio 22.7 (10.0-20.0); Blood Urea Nitrogen 22 mg/dL (9-23); Calcium 8.8 mg/dL (8.7-10.4); Carbon Dioxide 27 mmol/L (20-31); Chloride 106 mmol/L (98-107); Sodium 140 mmol/L (136-145); Total Protein 6.1 g/dL (5.7-8.2)
[2024-06-21 11:42] LABS: Alanine Aminotransferase 64 U/L (7-40); Aspartate Aminotransferase 121 U/L (13-40); Glucose 112 mg/dL (74-106); Potassium 3.4 mmol/L (3.5-5.1)
--- NOTE | 2024-06-21 12:37 | DVHPN2 ---
Progress Note - Dictate Date Seen: Jun 21, 2024 Has the PT tested + for MRSA If YES, has PT been informed?: No Medical Necessity Reason Pt with a Central, PICC or Fol: No Subjective Patient still has got some abdominal pain no nausea no vomiting Any slightly better Difficulty sometimes with the food getting stuck in the stomach sometimes with fullness vital signs Vital Sign Date Time Temp Pulse Resp B/P (MAP) Pulse Ox O2 Delivery O2 Flow Rate FiO2 06/21/24 09:21 122/48 06/21/24 09:00 97.9 71 16 97 97.9 06/21/24 08:15 Room Air* 0 21 Total Intake and Output 06/20/24 06/20/24 06/21/24 14:59 22:59 06:59 Intake Total 50 ml 340 ml 720 ml Balance 50 ml 340 ml 720 ml medications Current Medications Medications Dose Ordered Sig/Vicente Route Start Time Stop Time Status Last Admin Dose Admin Atorvastatin Calcium 40 mg HS PO 06/19/24 22:00 06/20/24 22:32 40 MG Morphine Sulfate 2 mg Q30MP PRN IV 06/19/24 18:00 Acetaminophen 650 mg Q6HP PRN PO 06/19/24 18:00 Nitroglycerin 0.4 mg Q5MINP PRN SL 06/19/24 18:00 Ondansetron HCl 4 mg Q4HP PRN IV 06/19/24 18:00 Ceftriaxone Sodium 50 ml @ 100 mls/hr DAILY@09 IV 06/20/24 09:00 06/21/24 09:03 100 MLS/HR Metronidazole 100 ml @ 100 mls/hr Q8HR IV 06/19/24 22:00 06/21/24 06:30 100 MLS/HR Amitriptyline HCl 25 mg BID PO 06/19/24 22:00 06/21/24 09:19 25 MG Aspirin 81 mg DAILY PO 06/20/24 10:00 06/21/24 09:19 81 MG Citalopram Hydrobromide 20 mg BID PO 06/19/24 22:00 06/21/24 09:20 20 MG Gabapentin 300 mg TID PO 06/19/24 22:00 06/21/24 06:30 300 MG Triamterene/HCTZ 1 cap DAILY PO 06/20/24 10:00 06/21/24 09:21 1 CAP Quetiapine Fumarate 50 mg HS PO 06/19/24 22:00 06/20/24 22:32 50 MG Enalapril Maleate 20 mg DAILY PO 06/20/24 10:00 06/21/24 09:20 20 MG Patient Own Medication 80 mg DAILY PO 06/20/24 10:00 Levothyroxine Sodium 25 mcg QAM@0600 PO 06/20/24 06:00 06/21/24 06:30 25 MCG Divalproex Sodium 1,000 mg BID PO 06/19/24 22:00 06/21/24 09:19 1,000 MG Hydroxyzine Pamoate 50 mg TID PO 06/19/24 22:00 06/21/24 06:30 50 MG Pantoprazole Sodium 40 mg DAILY IV 06/19/24 18:30 06/21/24 09:15 40 MG Enoxaparin Sodium 100 mg Q12HR SC 06/20/24 22:00 Hold 06/20/24 22:36 100 MG Sodium Chloride 1,000 ml @ 75 mls/hr [id number] IV 06/20/24 19:00 06/21/24 08:20 75 MLS/HR objective Soft mild tenderness in the epigastric area no rigidity no guarding No masses laboratory and microbiology Laboratory Tests 06/21/24 11:02 Test 06/21/24 11:02 Range/Units Serum Glucose 112 H 74-106 mg/dL Assessment/Plan 63-year-old female with a history of hypertension lupus GERD right breast cancer admitted with the complaints of periumbilical pain with nausea anorexia unable to even drink water apparently with without pain there was also some pain in the chest in the mediastinum. Patient has history of hypertension GERD and depression and lupus and strong family history of cancer CT scan showed possible fatty liver as well as fecal burden AST ALT are increased probably from nonalcoholic steatohepatitis or NAFLD Patient is clinically better though still has got some epigastric fullness We will recommend to follow up the liver enzymes Lipase was normal Symptoms persist may need endoscopic evaluation Thank you Dr. Marti Morales discussed with: Patient SHANKAR OSCAR MD Jun 21, 2024 12:37
[2024-06-21] MEDS: DOCUSATE SOD 100 MG CAP PO PRN (21:56)
[2024-06-21] MEDS: PANTOPRAZOLE 40 MG/10 ML VIAL INJ IV ONE (22:45)
--- NOTE | 2024-06-21 23:20 | DVHPN2 ---
Consult Progress Note Subjective Other Systems: Patient was seen and evaluated in follow up. No cardiac events reported. Patient is resting in bed. Patient complains of generalized pain. K 3.4, AST 121, ALT 64. Telemetry reviewed. Objective vital signs Vital Sign Date Time Temp Pulse Resp B/P (MAP) Pulse Ox O2 Delivery O2 Flow Rate FiO2 06/21/24 12:56 97.8 73 15 92/42 (59) 100 97.8 06/21/24 08:15 Room Air* 0 21 Total Intake and Output 06/20/24 06/20/24 06/21/24 14:59 22:59 06:59 Intake Total 50 ml 340 ml 720 ml Balance 50 ml 340 ml 720 ml medications Current Medications Medications Dose Ordered Sig/Vicente Route Start Time Stop Time Status Last Admin Dose Admin Atorvastatin Calcium 40 mg HS PO 06/19/24 22:00 06/20/24 22:32 40 MG Morphine Sulfate 2 mg Q30MP PRN IV 06/19/24 18:00 Acetaminophen 650 mg Q6HP PRN PO 06/19/24 18:00 Nitroglycerin 0.4 mg Q5MINP PRN SL 06/19/24 18:00 Ondansetron HCl 4 mg Q4HP PRN IV 06/19/24 18:00 Ceftriaxone Sodium 50 ml @ 100 mls/hr DAILY@09 IV 06/20/24 09:00 06/21/24 09:03 100 MLS/HR Metronidazole 100 ml @ 100 mls/hr Q8HR IV 06/19/24 22:00 06/21/24 15:30 100 MLS/HR Amitriptyline HCl 25 mg BID PO 06/19/24 22:00 06/21/24 09:19 25 MG Aspirin 81 mg DAILY PO 06/20/24 10:00 06/21/24 09:19 81 MG Citalopram Hydrobromide 20 mg BID PO 06/19/24 22:00 06/21/24 09:20 20 MG Gabapentin 300 mg TID PO 06/19/24 22:00 06/21/24 15:30 300 MG Triamterene/HCTZ 1 cap DAILY PO 06/20/24 10:00 06/21/24 09:21 1 CAP Quetiapine Fumarate 50 mg HS PO 06/19/24 22:00 06/20/24 22:32 50 MG Enalapril Maleate 20 mg DAILY PO 06/20/24 10:00 06/21/24 09:20 20 MG Patient Own Medication 80 mg DAILY PO 06/20/24 10:00 Levothyroxine Sodium 25 mcg QAM@0600 PO 06/20/24 06:00 06/21/24 06:30 25 MCG Divalproex Sodium 1,000 mg BID PO 06/19/24 22:00 06/21/24 09:19 1,000 MG Hydroxyzine Pamoate 50 mg TID PO 06/19/24 22:00 06/21/24 15:30 50 MG Pantoprazole Sodium 40 mg DAILY IV 06/19/24 18:30 06/21/24 09:15 40 MG Enoxaparin Sodium 100 mg Q12HR SC 06/20/24 22:00 Hold 06/20/24 22:36 100 MG Sodium Chloride 1,000 ml @ 75 mls/hr [id number] IV 06/20/24 19:00 06/21/24 08:20 75 MLS/HR Examination: GENERAL:Normal, HEENT:Normal, NECK:Normal, LUNGS:Normal, CVS:Normal, ABDOMEN:Normal, MSK:Normal, SKIN:Normal, NEURO:Normal laboratory and microbiology Laboratory Tests 06/21/24 11:02 Test 06/21/24 11:02 Range/Units Serum Glucose 112 H 74-106 mg/dL Problem List/Assessment/Plan Problem List/Assessment/Plan Assessment Chest pain to rule out ACS. NSTEMI rule out type 1. Sepsis, likely UTI. Transaminitis. Hypertension. Hyperlipidemia. Morbid obesity. Plan/Recommendation Continued all current supportive medical care. Patient has been seen by Camille Villanueva NP on my behalf. We have discussed the plan with the patient. Echocardiogram to evaluate cardiac function. Chest pain protocol, lovenox, aspirin and statins. BRIGID score 4, HEART Score 4. Trend troponin, monitor EKG. [facility] on 06/22/24. Given the patient's clinical presentation, positive troponins, elevated BRIGID score and heart score associated with significant comorbidities, the patient may benefit to undergone a ischemic workup to rule out CAD. The procedure was discussed with the patient in full detail including risks and benefits. Risks include but are not limited to bleeding, contrast-induced nephropathy, stroke, and even . Additional plan as per the hospital course. Plan discussed with: Patient Date of Service: Jun 21, 2024 Billing Provider: EVELYN LUU MD Cardiology Common Codes: [id number] INP/OBS CARE(Mod) Cardiology Consultation Codes: [id number] CONSULT <45MIN EVELYN LUU MD Jun 21, 2024 16:33
[2024-06-22] VITALS (12 sets, daily range): BP systolic 96–146; BP diastolic 46–84; PULSE 62–78; RESP 12–19; TEMP 97.6–98.3; O2SAT 92–99
[2024-06-22 07:43] LABS: Albumin 3.2 g/dL (3.2-4.8); Alkaline Phosphatase 65 U/L (46-116); Anion Gap 8 (5-15); BUN/Creatinine Ratio 25.3 (10.0-20.0); Blood Urea Nitrogen 22 mg/dL (9-23); Carbon Dioxide 26 mmol/L (20-31); Chloride 106 mmol/L (98-107); Potassium 3.6 mmol/L (3.5-5.1); Sodium 140 mmol/L (136-145); Total Protein 5.9 g/dL (5.7-8.2)
[2024-06-22 07:44] LABS: Bilirubin, Total 0.9 mg/dL (0.2-1.0)
[2024-06-22 07:46] LABS: Alanine Aminotransferase 74 U/L (7-40); Aspartate Aminotransferase 138 U/L (13-40); Glucose 74 mg/dL (74-106)
[2024-06-22] MEDS: IODIXANOL 320MG/ML 100ML BTL IV ONE (09:25)
[2024-06-22] MEDS: HEPARIN IN NS 1000Units/500mL 1,500 ML ONE (09:25)
[2024-06-22] MEDS: fentaNYL CITRATE 100 MCG/2 ML VL ONE (09:35)
[2024-06-22] MEDS: ANGIOMAX 250 MG VIAL IV ONE (09:35)
[2024-06-22] MEDS: VERAPAMIL 2.5MG/ML INJ 2ML VIAL IV ONE (09:35)
[2024-06-22] MEDS: LIDOCAINE 2%HCL (LOCAL ANESTH.) INJ 20ML MDV ONE (09:36)
[2024-06-22] MEDS: HEPARIN SODIUM (PORCINE) 5000 UNITS/ML 1ML VIAL ONE (09:36)
[2024-06-22] MEDS: MIDAZOLAM HCL 2MG/2ML 2ml VIAL (1mg/ml) ONE (09:36)
[2024-06-22] MEDS ORDERED: PANTOPRAZOLE 40 MG/10 ML VIAL INJ IV SCH (10:00)
--- NOTE | 2024-06-22 10:03 | DVHPN2 ---
Reviewed: Care Plan, H&P, Labs, Medications, Previous Orders, Radiology Changes from previous H/P or p: No Changes Cardiovascular: Chest Pain Gastrointestinal: Nausea, Vomiting Objective Vitals Vital Signs Date Time Temp Pulse Resp B/P (MAP) Pulse Ox O2 Delivery O2 Flow Rate FiO2 06/22/24 09:00 97.6 65 18 97/49 (65) 96 97.6 06/21/24 20:00 Room Air* 0 21 Intake/Output Intake and Output 06/22/24 07:00 Intake Total 3570 ml Balance 3570 ml Intake Oral 2370 ml IV Total 1200 ml # Voids 3 General Appearance: Alert, Oriented X3, Cooperative, No acute distress Lungs: Clear to auscultation Cardiovascular: Regular rate, Normal S1, Normal S2 Medications Current Medications Medications Dose Ordered Sig/Vicente Route Start Time Stop Time Status Last Admin Dose Admin Atorvastatin Calcium 40 mg HS PO 06/19/24 22:00 06/21/24 21:55 40 MG Morphine Sulfate 2 mg Q30MP PRN IV 06/19/24 18:00 Acetaminophen 650 mg Q6HP PRN PO 06/19/24 18:00 Nitroglycerin 0.4 mg Q5MINP PRN SL 06/19/24 18:00 Ondansetron HCl 4 mg Q4HP PRN IV 06/19/24 18:00 Ceftriaxone Sodium 50 ml @ 100 mls/hr DAILY@09 IV 06/20/24 09:00 06/21/24 09:03 100 MLS/HR Metronidazole 100 ml @ 100 mls/hr Q8HR IV 06/19/24 22:00 06/22/24 05:18 100 MLS/HR Amitriptyline HCl 25 mg BID PO 06/19/24 22:00 06/21/24 21:55 25 MG Aspirin 81 mg DAILY PO 06/20/24 10:00 06/21/24 09:19 81 MG Citalopram Hydrobromide 20 mg BID PO 06/19/24 22:00 06/21/24 21:54 20 MG Gabapentin 300 mg TID PO 06/19/24 22:00 06/21/24 21:55 300 MG Triamterene/HCTZ 1 cap DAILY PO 06/20/24 10:00 06/21/24 09:21 1 CAP Quetiapine Fumarate 50 mg HS PO 06/19/24 22:00 06/21/24 21:55 50 MG Enalapril Maleate 20 mg DAILY PO 06/20/24 10:00 06/21/24 09:20 20 MG Patient Own Medication 80 mg DAILY PO 06/20/24 10:00 Levothyroxine Sodium 25 mcg QAM@0600 PO 06/20/24 06:00 06/21/24 06:30 25 MCG Divalproex Sodium 1,000 mg BID PO 06/19/24 22:00 06/21/24 21:54 1,000 MG Hydroxyzine Pamoate 50 mg TID PO 06/19/24 22:00 06/21/24 21:55 50 MG Pantoprazole Sodium 40 mg DAILY IV 06/19/24 18:30 06/21/24 09:15 40 MG Enoxaparin Sodium 100 mg Q12HR SC 06/20/24 22:00 Hold 06/20/24 22:36 100 MG Sodium Chloride 1,000 ml @ 75 mls/hr [id number] IV 06/20/24 19:00 06/21/24 21:49 75 MLS/HR Docusate Sodium 100 mg BIDPRN PRN PO 06/21/24 20:45 06/21/24 21:56 100 MG Laboratory Results Laboratory Tests 06/21/24 11:02 06/22/24 06:30 Chemistry Test 06/21/24 11:02 06/22/24 06:30 Albumin 3.3 g/dL (3.2-4.8) 3.2 g/dL (3.2-4.8) Calcium Level 8.8 mg/dL (8.7-10.4) 9.0 mg/dL (8.7-10.4) Total Protein 6.1 g/dL (5.7-8.2) 5.9 g/dL (5.7-8.2) LFT Test 06/21/24 11:02 06/22/24 06:30 Alanine Aminotransferase (ALT) 64 U/L (7-40) H 74 U/L (7-40) H Alkaline Phosphatase 71 U/L (46-116) 65 U/L (46-116) Aspartate Amino Transferase (AST) 121 U/L (13-40) H 138 U/L (13-40) H Total Bilirubin 1.0 mg/dL (0.2-1.0) 0.9 mg/dL (0.2-1.0) Urinalysis Test 06/20/24 03:00 Urine Color Yellow (Yellow) Urine Clarity Turbid (Clear) H Urine pH 6.5 (5.0-9.0) Urine Specific [place] 1.025 (1.001-1.035) Urine Protein 1+ (Negative) H Urine Ketones 1+ (Negative) H Urine Blood Negative /uL (Negative) Urine Nitrite Negative (Negative) Urine Bilirubin Negative (Negative) Urine Urobilinogen 4 mg/dL (Negative) H Urine Leukocyte Esterase 2+ /uL (Negative) Urine RBC 2 /hpf (0 - 4) Urine Microscopic WBC 7 /HPF (0-5) H Urine Squamous Epithelial Cells Few /hpf (<5) Urine Bacteria None seen /hpf (None Seen) Urine Hyaline Casts Mod /lpf (0 - 2) Urine Mucus Few (None Seen) Urine Glucose Normal mg/dL (Normal) Microbiology Microbiology Date/Time Source Procedure Growth Status 06/20/24 14:15 Blood Blood Culture - Preliminary NO GROWTH AFTER 24 HOURS OF INCUBATION. Resulted 06/20/24 03:00 Voided Urine Urine Culture - Preliminary Resulted Labs and/or images reviewed: Labs reviewed by me, Image(s) reviewed by me Assessment/Plan Assessment/Plan Sepsis unknown etiology: Blood cultures negative, urine cultures negative Possible colitis: Rocephin Flagyl Depression: Celexa, Seroquel, Depakote History of right breast cancer History of DVT right lower extremity, venous ultrasound negative for DVT during this visit History of lupus Pancreatitis ruled out lipase normal Slightly elevated troponin: Patient getting left heart catheterization today Slightly elevated liver enzymes Chest x-ray negative Hypothyroidism Time spent 50 minutes Patient is full code Advanced care planning time 20 minutes Plan discussed with: Patient My Orders Orders - JAMES WARD MD Procedure Category Date Status Time *Dr. Serrano [facility] CONS 06/21/24 Transmitted -[place] 11:28 Date of Service: Jun 22, 2024 Billing Provider: JAMES WARD MD Common Visit Codes: [id number] INP/OBS CARE(HIGH) JAMES WARD MD Jun 22, 2024 10:03
--- NOTE | 2024-06-22 10:09 | DVHPN2 ---
Progress Note Date Seen: Jun 22, 2024 Has the PT tested + for MRSA If YES, has PT been informed?: No Medical Necessity Reason Pt with a Central, PICC or Fol: No Subjective Patient reports: Feels better Objective vital signs Vital Sign Date Time Temp Pulse Resp B/P (MAP) Pulse Ox O2 Delivery O2 Flow Rate FiO2 06/22/24 09:00 97.6 65 18 97/49 (65) 96 97.6 06/21/24 20:00 Room Air* 0 21 Total Intake and Output 06/21/24 06/21/24 06/22/24 15:00 23:00 07:00 Intake Total 2700 ml 870 ml Balance 2700 ml 870 ml medications Current Medications Medications Dose Ordered Sig/Vicente Route Start Time Stop Time Status Last Admin Dose Admin Atorvastatin Calcium 40 mg HS PO 06/19/24 22:00 06/21/24 21:55 40 MG Morphine Sulfate 2 mg Q30MP PRN IV 06/19/24 18:00 Acetaminophen 650 mg Q6HP PRN PO 06/19/24 18:00 Nitroglycerin 0.4 mg Q5MINP PRN SL 06/19/24 18:00 Ondansetron HCl 4 mg Q4HP PRN IV 06/19/24 18:00 Ceftriaxone Sodium 50 ml @ 100 mls/hr DAILY@09 IV 06/20/24 09:00 06/21/24 09:03 100 MLS/HR Metronidazole 100 ml @ 100 mls/hr Q8HR IV 06/19/24 22:00 06/22/24 05:18 100 MLS/HR Amitriptyline HCl 25 mg BID PO 06/19/24 22:00 06/21/24 21:55 25 MG Aspirin 81 mg DAILY PO 06/20/24 10:00 06/21/24 09:19 81 MG Citalopram Hydrobromide 20 mg BID PO 06/19/24 22:00 06/21/24 21:54 20 MG Gabapentin 300 mg TID PO 06/19/24 22:00 06/21/24 21:55 300 MG Triamterene/HCTZ 1 cap DAILY PO 06/20/24 10:00 06/21/24 09:21 1 CAP Quetiapine Fumarate 50 mg HS PO 06/19/24 22:00 06/21/24 21:55 50 MG Enalapril Maleate 20 mg DAILY PO 06/20/24 10:00 06/21/24 09:20 20 MG Patient Own Medication 80 mg DAILY PO 06/20/24 10:00 Levothyroxine Sodium 25 mcg QAM@0600 PO 06/20/24 06:00 06/21/24 06:30 25 MCG Divalproex Sodium 1,000 mg BID PO 06/19/24 22:00 06/21/24 21:54 1,000 MG Hydroxyzine Pamoate 50 mg TID PO 06/19/24 22:00 06/21/24 21:55 50 MG Pantoprazole Sodium 40 mg DAILY IV 06/19/24 18:30 06/21/24 09:15 40 MG Enoxaparin Sodium 100 mg Q12HR SC 06/20/24 22:00 Hold 06/20/24 22:36 100 MG Sodium Chloride 1,000 ml @ 75 mls/hr [id number] IV 06/20/24 19:00 06/21/24 21:49 75 MLS/HR Docusate Sodium 100 mg BIDPRN PRN PO 06/21/24 20:45 06/21/24 21:56 100 MG Examination: GENERAL:Abnormal, HEENT:Abnormal, LUNGS:Abnormal, CVS:Abnormal, ABDOMEN:Abnormal laboratory and microbiology Laboratory Tests 06/22/24 06:30 06/21/24 11:02 Test 06/22/24 06:30 Range/Units Serum Glucose 74 74-106 mg/dL Microbiology Date/Time Source Procedure Growth Status 06/20/24 14:15 Blood Blood Culture - Preliminary NO GROWTH AFTER 24 HOURS OF INCUBATION. Resulted 06/20/24 03:00 Voided Urine Urine Culture - Preliminary Resulted Problem List/Assessment/Plan Problem List/Assessment/Plan acs hx of vte hx of breast cancer obesity HTN LHC shows no severe cad fu with dr nate alvarado after dc cont current meds Plan discussed with: Patient My Orders My Orders Orders - DIONICIO ACEVEDO MD Procedure Category Date Status Time Post Cath Vital Signs EDDIE 06/22/24 In Process Q 15min Post Cath Activity EDDIE 06/22/24 In Process Protocol 10:00 Cardiac DIET 06/22/24 Transmitted Diet-2gna,Lofat,Lochol Lunch Date of Service: Jun 22, 2024 Billing Provider: DIONICIO ACEVEDO MD Common Visit Codes: NOT BILLABLE DIONICIO ACEVEDO MD Jun 22, 2024 10:09
--- NOTE | 2024-06-22 10:09 | DVHOP2 ---
Operative Report Operative Report CARDIAC SENIOR CYBER INTELLIGENCE ANALYST PROCEDURE REPORT [place], [place] Date of Service: 06/22/24 Machine Repair Person: Dionicio Acevedo MD PROCEDURES PERFORMED: Coronary angiogram, left heart catheterization, conscious sedation administration and supervision, less than 15 minutes; fluoroscopy use and interpretation. US guided vascular access saved to pacs system PREOPERATIVE DIAGNOSES: ACS POSTOP DIAGNOSIS: chest pain DESCRIPTION OF PROCEDURE: The patient or appropriate family signed informed consent understanding the risks, benefits and alternatives of the procedure, they wished to proceed. The patient was brought to the cardiac terrazzo laborer in n.p.o. state. The patient was prepped in a sterile fashion. Sedation was used per cardiac cath protocol. I administered 2 mL of 2% lidocaine to the right wrist.there was no radial pulse and so with US guidance I cannulated thE Right radial artery. With an antegrade front wall puncture. I cannulated the right radial artery and placed a 6-Italian Glidesheath slender. Next, an intra-arterial spasmolytic was administered. Next, a - 6French [place] catheter and and were used for coronary angiogram and LVEDP measurement and pressure pullback. At the completion of procedure, all guides and wires were removed, and there were no immediate complications. 5000 U of IV heparin given. FINDINGS: RCA: Moderate vessel off the right sinus of Valsalva, there is no severe flow limiting stenosis. LEFT MAIN: Moderate size left main, it bifurcates into LAD and circumflex. no stenosis CIRCUMFLEX: Moderate caliber vessel coming off the left main with no flow limiting stenosis. LAD: LAD is a moderate caliber vessel coming of the left main. no stenosis LVEDP of 7 mmhg CONCLUSIONS: 1. no severe cad DIONICIO ACEVEDO MD Jun 22, 2024 10:09
[2024-06-22] MEDS: ACETAMINOPHEN 325 MG TAB PO PRN (13:26)
--- NOTE | 2024-06-22 21:35 | DVHPN2 ---
Progress Note - Dictate Date Seen: Jun 22, 2024 Has the PT tested + for MRSA If YES, has PT been informed?: No Medical Necessity Reason Pt with a Central, PICC or Fol: No Subjective Patient was seen and evaluated in follow up. Patient is c/o intermittent chest pain. The patient is s/p LHC which showed no severe CAD. Telemetry reviewed. vital signs Vital Sign Date Time Temp Pulse Resp B/P (MAP) Pulse Ox O2 Delivery O2 Flow Rate FiO2 06/22/24 21:00 98.3 78 16 103/55 (71) 96 98.3 06/22/24 08:00 Room Air* 0 21 Total Intake and Output 06/21/24 06/21/24 06/22/24 15:00 23:00 07:00 Intake Total 2700 ml 870 ml Balance 2700 ml 870 ml medications Current Medications Medications Dose Ordered Sig/Vicente Route Start Time Stop Time Status Last Admin Dose Admin Atorvastatin Calcium 40 mg HS PO 06/19/24 22:00 06/21/24 21:55 40 MG Morphine Sulfate 2 mg Q30MP PRN IV 06/19/24 18:00 Acetaminophen 650 mg Q6HP PRN PO 06/19/24 18:00 06/22/24 13:26 650 MG Nitroglycerin 0.4 mg Q5MINP PRN SL 06/19/24 18:00 Ondansetron HCl 4 mg Q4HP PRN IV 06/19/24 18:00 Ceftriaxone Sodium 50 ml @ 100 mls/hr DAILY@09 IV 06/20/24 09:00 06/21/24 09:03 100 MLS/HR Metronidazole 100 ml @ 100 mls/hr Q8HR IV 06/19/24 22:00 06/22/24 13:31 100 MLS/HR Amitriptyline HCl 25 mg BID PO 06/19/24 22:00 06/22/24 11:15 25 MG Aspirin 81 mg DAILY PO 06/20/24 10:00 06/22/24 11:15 81 MG Citalopram Hydrobromide 20 mg BID PO 06/19/24 22:00 06/22/24 11:15 20 MG Gabapentin 300 mg TID PO 06/19/24 22:00 06/22/24 13:27 300 MG Triamterene/HCTZ 1 cap DAILY PO 06/20/24 10:00 06/21/24 09:21 1 CAP Quetiapine Fumarate 50 mg HS PO 06/19/24 22:00 06/21/24 21:55 50 MG Enalapril Maleate 20 mg DAILY PO 06/20/24 10:00 06/21/24 09:20 20 MG Patient Own Medication 80 mg DAILY PO 06/20/24 10:00 Levothyroxine Sodium 25 mcg QAM@0600 PO 06/20/24 06:00 06/21/24 06:30 25 MCG Divalproex Sodium 1,000 mg BID PO 06/19/24 22:00 06/22/24 11:15 1,000 MG Hydroxyzine Pamoate 50 mg TID PO 06/19/24 22:00 06/22/24 13:26 50 MG Pantoprazole Sodium 40 mg DAILY IV 06/19/24 18:30 06/22/24 11:15 40 MG Enoxaparin Sodium 100 mg Q12HR SC 06/20/24 22:00 Hold 06/20/24 22:36 100 MG Sodium Chloride 1,000 ml @ 75 mls/hr [id number] IV 06/20/24 19:00 06/22/24 11:15 75 MLS/HR Docusate Sodium 100 mg BIDPRN PRN PO 06/21/24 20:45 06/21/24 21:56 100 MG objective GENERAL: Alert and oriented x 3. No acute distress. EYES: PERRL, EOMI. Anicteric. HENT: Moist mucous membranes. LUNGS: Clear to auscultation bilaterally. CARDIOVASCULAR: Regular rate and rhythm. ABDOMEN: Soft, non-tender and non-distended. EXTREMITIES: No edema. NEUROLOGIC: No focal neurological deficits. SKIN: Warm, dry. laboratory and microbiology Laboratory Tests 06/22/24 06:30 06/21/24 11:02 Test 06/22/24 06:30 Range/Units Serum Glucose 74 74-106 mg/dL Problem List Chest pain. NSTEMI. Sepsis, likely UTI. Transaminitis. Hypertension. Hyperlipidemia. Morbid obesity. Assessment/Plan Chest pain to rule out ACS. NSTEMI rule out type 1. Sepsis, likely UTI. Transaminitis. Hypertension. Hyperlipidemia. Morbid obesity. Plan discussed with: Patient EVELYN LUU MD Jun 22, 2024 21:35
[2024-06-23 01:00] VITALS: BP 120/63; PULSE 66; RESP 15; TEMP 98.1; O2SAT 94
[2024-06-23 05:00] VITALS: BP 95/52; PULSE 62; RESP 16; TEMP 98.2; O2SAT 100
[2024-06-23 08:00] VITALS: PULSE 74; RESP 18; O2SAT 96
[2024-06-23 08:59] VITALS: BP 116/33; PULSE 62; RESP 20; TEMP 97.7; O2SAT 94
[2024-06-23] MEDS ORDERED: CIPR-173 PO (10:25)
[2024-06-23] MEDS ORDERED: PANT40T PO (10:25)
--- NOTE | 2024-06-23 10:27 | DVHPN2 ---
Reviewed: Care Plan, H&P, Labs, Medications, Previous Orders, Radiology Changes from previous H/P or p: No Changes Cardiovascular: Chest Pain Gastrointestinal: Nausea, Vomiting Objective Vitals Vital Signs Date Time Temp Pulse Resp B/P (MAP) Pulse Ox O2 Delivery O2 Flow Rate FiO2 06/23/24 10:22 116/75 06/23/24 08:59 97.7 62 20 94 97.7 06/22/24 20:00 Room Air* 0 21 Intake/Output Intake and Output 06/23/24 07:00 Intake Total 1320 ml Balance 1320 ml Intake Oral 1120 ml IV Total 200 ml # Voids 1 General Appearance: Alert, Oriented X3, Cooperative, No acute distress Lungs: Clear to auscultation Cardiovascular: Regular rate, Normal S1, Normal S2 Medications Current Medications Medications Dose Ordered Sig/Vicente Route Start Time Stop Time Status Last Admin Dose Admin Atorvastatin Calcium 40 mg HS PO 06/19/24 22:00 06/22/24 23:02 40 MG Morphine Sulfate 2 mg Q30MP PRN IV 06/19/24 18:00 Acetaminophen 650 mg Q6HP PRN PO 06/19/24 18:00 06/22/24 23:04 650 MG Nitroglycerin 0.4 mg Q5MINP PRN SL 06/19/24 18:00 Ondansetron HCl 4 mg Q4HP PRN IV 06/19/24 18:00 Ceftriaxone Sodium 50 ml @ 100 mls/hr DAILY@09 IV 06/20/24 09:00 06/23/24 10:18 100 MLS/HR Metronidazole 100 ml @ 100 mls/hr Q8HR IV 06/19/24 22:00 06/23/24 06:25 100 MLS/HR Amitriptyline HCl 25 mg BID PO 06/19/24 22:00 06/23/24 10:22 25 MG Aspirin 81 mg DAILY PO 06/20/24 10:00 06/23/24 10:21 81 MG Citalopram Hydrobromide 20 mg BID PO 06/19/24 22:00 06/23/24 10:19 20 MG Gabapentin 300 mg TID PO 06/19/24 22:00 06/23/24 06:27 300 MG Triamterene/HCTZ 1 cap DAILY PO 06/20/24 10:00 06/23/24 10:21 1 CAP Quetiapine Fumarate 50 mg HS PO 06/19/24 22:00 06/22/24 23:03 50 MG Enalapril Maleate 20 mg DAILY PO 06/20/24 10:00 06/23/24 10:22 10 MG Patient Own Medication 80 mg DAILY PO 06/20/24 10:00 Levothyroxine Sodium 25 mcg QAM@0600 PO 06/20/24 06:00 06/23/24 06:27 25 MCG Divalproex Sodium 1,000 mg BID PO 06/19/24 22:00 06/23/24 10:19 1,000 MG Hydroxyzine Pamoate 50 mg TID PO 06/19/24 22:00 06/23/24 06:27 50 MG Pantoprazole Sodium 40 mg DAILY IV 06/19/24 18:30 06/23/24 10:18 40 MG Enoxaparin Sodium 100 mg Q12HR SC 06/20/24 22:00 Hold 06/20/24 22:36 100 MG Sodium Chloride 1,000 ml @ 75 mls/hr [id number] IV 06/20/24 19:00 06/22/24 11:15 75 MLS/HR Docusate Sodium 100 mg BIDPRN PRN PO 06/21/24 20:45 06/23/24 06:27 100 MG Laboratory Results Laboratory Tests 06/21/24 11:02 06/22/24 06:30 Urinalysis Test 06/20/24 03:00 Urine Color Yellow (Yellow) Urine Clarity Turbid (Clear) H Urine pH 6.5 (5.0-9.0) Urine Specific [place] 1.025 (1.001-1.035) Urine Protein 1+ (Negative) H Urine Ketones 1+ (Negative) H Urine Blood Negative /uL (Negative) Urine Nitrite Negative (Negative) Urine Bilirubin Negative (Negative) Urine Urobilinogen 4 mg/dL (Negative) H Urine Leukocyte Esterase 2+ /uL (Negative) Urine RBC 2 /hpf (0 - 4) Urine Microscopic WBC 7 /HPF (0-5) H Urine Squamous Epithelial Cells Few /hpf (<5) Urine Bacteria None seen /hpf (None Seen) Urine Hyaline Casts Mod /lpf (0 - 2) Urine Mucus Few (None Seen) Urine Glucose Normal mg/dL (Normal) Microbiology Microbiology Date/Time Source Procedure Growth Status 06/20/24 14:15 Blood Blood Culture - Preliminary NO GROWTH AFTER 48 HOURS OF INCUBATION. Resulted 06/20/24 03:00 Voided Urine Urine Culture - Final Complete Labs and/or images reviewed: Labs reviewed by me, Image(s) reviewed by me Assessment/Plan Assessment/Plan Sepsis secondary to urinary tract infection Blood cultures negative, urine cultures mixed, treated with Rocephin Possible colitis: Rocephin Flagyl Depression: Celexa, Seroquel, Depakote History of right breast cancer History of DVT right lower extremity, venous ultrasound negative for DVT during this visit History of lupus Pancreatitis ruled out lipase normal left heart catheterization by Dr. Torres on 06/22/2024 neg Slightly elevated liver enzymes Chest x-ray negative Hypothyroidism Patient is asymptomatic and being discharged home Plan discussed with: Patient Date of Service: Jun 23, 2024 Billing Provider: JAMES WARD MD Common Visit Codes: [id number] INP/OBS CARE(HIGH) JAMES WARD MD Jun 23, 2024 10:27
--- NOTE | 2024-06-23 10:32 | DVHDS2 ---
Discharge Summary Date of Admission Jun 19, 2024 at 17:59 Date of Discharge: Jun 23, 2024 Admitting Diagnosis Generalized weakness Wounds: Left heart catheterization Labs/Diagnostic Data: Laboratory Results Test 06/22/24 06:30 06/21/24 11:02 06/20/24 19:08 06/20/24 05:26 Sodium Level 140 mmol/L (136-145) Potassium Level 3.6 mmol/L (3.5-5.1) Chloride Level 106 mmol/L (98-107) Carbon Dioxide Level 26 mmol/L (20-31) Anion Gap 8 (5-15) Blood Urea Nitrogen 22 mg/dL (9-23) Creatinine 0.87 mg/dL (0.550-1.02) Glomerular Filtration Rate Calc 75 mL/min (>90) BUN/Creatinine Ratio 25.3 (10.0-20.0) Serum Glucose 74 mg/dL (74-106) Calcium Level 9.0 mg/dL (8.7-10.4) Total Bilirubin 0.9 mg/dL (0.2-1.0) Aspartate Amino Transferase (AST) 138 U/L (13-40) Alanine Aminotransferase (ALT) 74 U/L (7-40) Alkaline Phosphatase 65 U/L (46-116) Total Protein 5.9 g/dL (5.7-8.2) Albumin 3.2 g/dL (3.2-4.8) Beta HCG, Quantitative 3.2 mIU/mL (1.5-4.2) White Blood Count 6.6 10^3/uL (4.4-10.8) Red Blood Count 4.70 10^6/uL (4.0-5.20) Hemoglobin 13.4 g/dL (12.2-16.2) Hematocrit 39.8 % (36.0-46.0) Mean Corpuscular Volume 84.6 fL (80.0-100.0) Mean Corpuscular Hemoglobin 28.6 pg (28.0-32.0) Mean Corpuscular Hemoglobin Concent 33.8 g/dL (32.0-36.0) Red Cell Distribution Width 13.4 % (11.8-14.3) Platelet Count 142 10^3/uL (140-450) Mean Platelet Volume 8.7 fL (6.9-10.8) Neutrophils (%) (Auto) 35.2 % (37.0-80.0) Lymphocytes (%) (Auto) 46.6 % (10.0-50.0) Monocytes (%) (Auto) 14.3 % (0.0-12.0) Eosinophils (%) (Auto) 2.8 % (0.0-7.0) Basophils (%) (Auto) 1.1 % (0.0-2.0) Neutrophils # (Auto) 2.3 10 ^3/uL (1.6-8.6) Lymphocytes # (Auto) 3.1 10 ^3/uL (0.4-5.4) Monocytes # (Auto) 0.9 10 ^3/uL (0-1.3) Eosinophils # (Auto) 0.2 10 ^3/uL (0-0.8) Basophils # (Auto) 0.1 10 ^3/uL (0-0.2) Nucleated Red Blood Cells 0.2 % Prothrombin Time 13.5 sec (9.3-11.8) Prothrombin Time INR 1.31 (0.9-1.15) Activated Partial Thromboplast Time 30.2 SEC (24.5-34.5) Magnesium Level 1.9 mg/dL (1.6-2.6) Troponin I High Sensitivity 54 ng/L (</=34) Triglycerides Level 52 mg/dL (< 150) Cholesterol Level 153 mg/dL (< 200) LDL Cholesterol 82 mg/dL (< 100) HDL Cholesterol 49 mg/dL (40-59) Test 06/20/24 03:00 06/19/24 21:13 06/19/24 16:22 Urine Color Yellow (Yellow) Urine Clarity Turbid (Clear) Urine pH 6.5 (5.0-9.0) Urine Specific [place] 1.025 (1.001-1.035) Urine Protein 1+ (Negative) Urine Ketones 1+ (Negative) Urine Blood Negative /uL (Negative) Urine Nitrite Negative (Negative) Urine Bilirubin Negative (Negative) Urine Urobilinogen 4 mg/dL (Negative) Urine Leukocyte Esterase 2+ /uL (Negative) Urine RBC 2 /hpf (0 - 4) Urine Microscopic WBC 7 /HPF (0-5) Urine Squamous Epithelial Cells Few /hpf (<5) Urine Bacteria None seen /hpf (None Seen) Urine Hyaline Casts Mod /lpf (0 - 2) Urine Mucus Few (None Seen) Urine Glucose Normal mg/dL (Normal) Urine Opiates Screen Pos (NEGATIVE) Urine Fentanyl Screen Neg (NEGATIVE) Urine Barbiturates Screen Neg (NEGATIVE) Urine Phencyclidine Screen Neg (NEGATIVE) Urine Amphetamines Screen Neg (NEGATIVE) Urine Benzodiazepines Screen Neg (NEGATIVE) Urine Cocaine Screen Neg (NEGATIVE) Urine Cannabinoids Screen Neg (NEGATIVE) Lactic Acid Level 2.0 mmol/L (0.4-2.0) Hemoglobin A1c 5.2 % A1C (<5.7) Amylase Level 100 U/L (30-118) Lipase 31 U/L (12-53) Thyroid Stimulating Hormone (TSH) 3.40 uIU/mL (0.55-4.78) Other Laboratory Tests 06/22/24 06:30 06/21/24 11:02 Brief Hx & Hospital Course: 63-year-old female with a history of depression right breast cancer DVT right lower extremity lupus hypothyroidism for generalized weakness. Found to have sepsis secondary to urinary tract infection blood cultures negative urine cultures mixed treated with Rocephin also had possible colitis treated with Rocephin and Flagyl. Pancreatitis ruled out chest x-ray negative cardiology consult by Dr. Estrada left heart catheterization by Dr. Torres 06/22/2024 negative At the time of discharge patient is asymptomatic. Prescription transmitted to the pharmacy for new medication Cipro and pantoprazole RANDELL Ugalde at bedside at the time of discharge plan. Consults/Reason for consult Cardiology Dr. Torres and Dr. Estrada Operations or Procedures Left heart catheterization Condition at Discharge: Fair Final Diagnosis/Problems List Sepsis secondary to urinary tract infection Blood cultures negative, urine cultures mixed, treated with Rocephin Possible colitis: Rocephin Flagyl Depression: Celexa, Seroquel, Depakote History of right breast cancer History of DVT right lower extremity, venous ultrasound negative for DVT during this visit History of lupus Pancreatitis ruled out lipase normal left heart catheterization by Dr. Torres on 06/22/2024 neg Slightly elevated liver enzymes Chest x-ray negative Hypothyroidism Discharge Disposition: Home Discharge Instruct/Medications Diet: Cardiac 2g Na,low cholest Activity: Light activity Follow Up/Referral: Continue all your previous home medications Use new medications as prescribed Follow up with your primary Dr in one week Medications: Cipro Pantoprazole Transmitted to pharmacy 35 (Time taken for discharge summary 35 minutes) Discharge Statement: "Patient was advised to return to the ER or call 911 if any headaches, dizziness, shortness of breath, chest pain, abdominal pain, bleeding, fevers, or worsening of medical condition. Patient was counseled about treatment plan, medications, possible side effects, patientverbalized understanding. All questions were answered to the best of my ability. This discharge took greater then 30 minutes in planning, reviewing documentation, counseling the patient, and discussing with other team members." ASSESSMENT ASSESSMENT Hospital Course Improved Assessment Sepsis secondary to urinary tract infection Blood cultures negative, urine cultures mixed, treated with Rocephin Possible colitis: Rocephin Flagyl Depression: Celexa, Seroquel, Depakote History of right breast cancer History of DVT right lower extremity, venous ultrasound negative for DVT during this visit History of lupus Pancreatitis ruled out lipase normal left heart catheterization by Dr. Torres on 06/22/2024 neg Slightly elevated liver enzymes Chest x-ray negative Hypothyroidism Date of Service: Jun 23, 2024 Billing Provider: JAMES WARD MD Common Visit Codes: 85919-DZR/OBS DISCH DAY >30min JMAES WARD MD Jun 23, 2024 10:32
[2024-06-23] MEDS ORDERED: LORA-1121 PO (12:30)
[2024-06-23 12:31] VITALS: BP 121/67; PULSE 68; RESP 18; TEMP 98.4; O2SAT 95
[2024-06-23 15:06] VITALS: BP 116/75; TEMP 36.9
--- NOTE | 2024-06-23 21:32 | DVHPN2 ---
Progress Note - Dictate Date Seen: Jun 23, 2024 Has the PT tested + for MRSA If YES, has PT been informed?: No Medical Necessity Reason Pt with a Central, PICC or Fol: No Subjective Patient was seen and evaluated in follow up. Patient has no new complaints at this time. Patient denies any cardiac symptoms. Patient is cardiac stable for discharge. Telemetry reviewed. vital signs Vital Sign Date Time Temp Pulse Resp B/P (MAP) Pulse Ox O2 Delivery O2 Flow Rate FiO2 06/23/24 15:06 36.9 06/23/24 12:31 68 18 121/67 (85) 95 06/23/24 08:00 Room Air* 0 21 Total Intake and Output 06/22/24 06/22/24 06/23/24 15:00 23:00 07:00 Intake Total 100 ml 720 ml 500 ml Balance 100 ml 720 ml 500 ml objective GENERAL: Alert and oriented x 3. No acute distress. EYES: PERRL, EOMI. Anicteric. HENT: Moist mucous membranes. LUNGS: Clear to auscultation bilaterally. CARDIOVASCULAR: Regular rate and rhythm. ABDOMEN: Soft, non-tender and non-distended. EXTREMITIES: No edema. NEUROLOGIC: No focal neurological deficits. SKIN: Warm, dry. laboratory and microbiology Laboratory Tests 06/22/24 06:30 06/21/24 11:02 Test 06/22/24 06:30 Range/Units Serum Glucose 74 74-106 mg/dL Problem List Chest pain. NSTEMI. Sepsis, likely UTI. Transaminitis. Hypertension. Hyperlipidemia. Morbid obesity. CAD. Assessment/Plan Chest pain to rule out ACS. NSTEMI rule out type 1. Sepsis, likely UTI. Transaminitis. Hypertension. Hyperlipidemia. Morbid obesity. Dietary Evaluation Review Comments: 1. Continue Cardiac diet as tolerated per MD discretion 2. Continue to document PO intakes, will monitor closely 3. If PO remains variable upon FU, add oral supplement 1x/day *goal >75% intake of meals consistently 4. Monitor/treat GI sx, no longer N/V per EMR documentation Expected Outcomes/Goals: Improved oral intakes, maintain adequate PO. Plan discussed with: Patient EVELYN LUU MD Jun 23, 2024 21:32
== END 2024-06-23 16:15 | disposition home or self-care (01) | DRG 871 ==
LOC: EDBD 15:54 → ER 16:00 → OVERFLOW 17:59 → TELE-EAST 06-20 02:30
PROVIDERS: ADMIT Family Medicine; ATTEND Family Medicine
PROC: 4A023N7 Measurement of Cardiac Sampling and Pressure, Left Heart, Percutaneous Approach (ICD-10-PCS; principal; 2024-06-22)
PROC: B211YZZ Fluoroscopy of Multiple Coronary Arteries using Other Contrast (ICD-10-PCS; 2024-06-22)
DX: A41.9 Sepsis, unspecified organism (principal); I21.4 Non-ST elevation (NSTEMI) myocardial infarction; N39.0 Urinary tract infection, site not specified; I24.9 Acute ischemic heart disease, unspecified; I10 Essential (primary) hypertension; E66.01 Morbid (severe) obesity due to excess calories; E03.9 Hypothyroidism, unspecified; Z68.37 Body mass index [BMI] 37.0-37.9, adult; F32.A Depression, unspecified; E78.5 Hyperlipidemia, unspecified; K52.9 Noninfective gastroenteritis and colitis, unspecified; I25.10 Atherosclerotic heart disease of native coronary artery without angina pectoris; K21.9 Gastro-esophageal reflux disease without esophagitis; K75.81 Nonalcoholic steatohepatitis (NASH); Z98.51 Tubal ligation status; Z86.718 Personal history of other venous thrombosis and embolism; Z85.3 Personal history of malignant neoplasm of breast; Z82.49 Family history of ischemic heart disease and other diseases of the circulatory system; Z80.6 Family history of leukemia; Z80.41 Family history of malignant neoplasm of ovary; Z79.899 Other long term (current) drug therapy; Z79.82 Long term (current) use of aspirin; Z88.8 Allergy status to other drugs, medicaments and biological substances
CPT/HCPCS: 36415; 71045; 74176; 80048; 80053; 80061; 80307; 81001; 82150; 83036; 83605; 83690; 83735; 84075; 84443; 84450; 84460; 84484; 84702; 85025; 85610; 85730; 86850; 86900; 86901; 87040; 87086; 93005; 93306; 93458; 93970; 96365; 96372; 96375; 99152; G0378; J2250; J2405; J2470; J3490; Q9967

== ENCOUNTER 2025-01-06 13:04 | Inpatient (IN) | payer MEDICAID, MEDICARE ==
[~2025-01-06] VITALS: Ht 167.6 cm; Wt 136.0 kg
[~2025-01-06 13:04] MED LIST changes: +CIPR-173 PO; +DIVA500T13 PO; +HYDR50CA2 PO; +LEVO25TA6 PO; +LORA-1121 PO; +PANT40T PO
--- NOTE | 2025-01-06 13:13 | ED.PDOC ---
HPI Comments This is a 64 year old female PHUC presenting to the ED with chief complaint of chest pain. Patient reports that she has been experiencing left sided chest pain with radiation to her neck and back since about an hour ago with associated dizziness and nausea. EMS relays patient was found to be in A-Fib RVR in the 170s on scene. EMS states patient was given 324mg of Aspirin en route to the ED. Patient denies any SOB, syncope, vomiting, abdominal pain, headache, or fever. 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 11/02/13 [Protonix] No Conflict Check, 20 MG PO DAILY Prov:KATHIE THOMPSON.P. 11/02/13 Quetiapine Fumerate (Seroquel) 25 Mg Tab, 50 MG PO HS, #60 Prov:KATHIE THOMPSON N.P. 11/02/13 Reported Medications Hydroxyzine Pamoate (Hydroxyzine Pamoate) 50 Mg Cap, 1 CAP PO TID 06/19/24 Levothyroxine Sodium (Levothyroxine Sodium) 25 Mcg Tab, 1 TAB PO DAILY 06/19/24 Divalproex Sodium (Divalproex Sodium) 500 Mg Tab, 2 TAB PO BID 06/19/24 Citalopram Hydrobromide (Citalopram Hydrobromide) 20 Mg Tab, 20 MG PO BID, #30 11/02/13 Aspirin (Aspirin Ec Low Dose) 81 Mg Tab, 81 MG PO DAILY, #30 11/02/13 Ibuprofen (Ibuprofen) 600 Mg Tab, 600 MG PO PRN, #120 11/02/13 Enalapril Maleate (Enalapril Maleate) 20 Mg Tab, 20 MG PO DAILY, #30 11/02/13 Amitriptyline Hcl (Amitriptyline Hcl) 25 Mg Tab, 25 MG PO BID, #60 11/02/13 Gabapentin (Gabapentin) 300 Mg Cap, 300 MG PO TID, #90 11/02/13 Lurasidone Hcl (LATUDA) 80 Mg Tab, 80 MG PO DAILY, #60 11/02/13 Information Source: Patient, Emergency Med Personnel Mode of Arrival: EMS Severity: Moderate Timing: Hours Duration: Since onset Prehospital treatment: None Location: Chest (L) Radiation: Neck Quality: Pressure, Tightness Onset: At Rest Cardiac Risk Factors: HTN History of: Similar pain in past Past Medical History PAST MEDICAL HISTORY: Anxiety, HTN Past Medical History (Other): DVT, Bipolar, Lupus Surgical History: BTL DJ INSTRUCTOR History: No Pertinent DJ INSTRUCTOR History Family History Family History: Unknown Social History Smoker: Non-Smoker Alcohol: Denies ETOH Use Drugs: Denies Drug Use Lives In: Home Constitutional: denies: chills, diaphoresis, fatigue, fever, malaise, sweats, weakness, others EENTM: denies: blurred vision, double vision, ear bleeding, ear discharge, ear drainage, ear pain, ear ringing, eye pain, eye redness, hearing loss, mouth pain, mouth swelling, nasal discharge, nose bleeding, nose congestion, nose pain, photophobia, tearing, throat pain, throat swelling, voice changes, others Respiratory: denies: cough, hemoptysis, orthopnea, SOB at rest, shortness of breath, SOB with excertion, stridor, wheezing, others Cardiovascular: reports: chest pain; denies: dizzy spells, diaphoresis, Dyspnea on exertion, edema, irregular heart beat, left arm pain, lightheadedness, pa lpitations, PND, syncope, others Gastrointestinal: reports: nausea; denies: abdomen distended, abdominal pain, blood streaked bowels, constipated, diarrhea, dysphagia, difficulty swallowing, hematemesis, melena, poor appetite, poor fluid intake, rectal bleeding, rectal pain, vomiting, others Genitourinary: denies: abnormal vagina bleeding, burning, dyspareunia, dysuria, flank pain, frequency, hematuria, incontinence, pain, , vagina dis charge, urgency, others Neurological: reports: dizziness; denies: fainting, headache, left sided numbness, left sided weakness, numbness, paresthesia, pre-existing deficit, right sided numbness, right sided weakness, seizure, speech problems, tingling, tremors, weakness, others Musculoskeletal: reports: neck pain; denies: back pain, gout, joint pain, joint swelling, muscle pain, muscle stiffness, others Integumetry: denies: bruises, change in color, change in hair/nails, dryness, laceration, lesions, lumps, rash, wounds, others Allergic/Immunocompromised: denies: Difficulty Healing, Frequent Infections, Hives, Itching, others Hematologic/Lymphatic: denies: anemia, blood clots, easy bleeding, easy bruising, swollen glands, others Endocrine: denies: excessive hunger, excessive sweating, excessive thirst, excessive urination, flushing, intolerance to cold, intolerance to heat, unexplained weight gain, unexplained weight loss, others Psychiatric: denies: anxiety, bipolar disorder, depression, hopeless, panic disorder, schizophrenia, sleepless, suicidal, others All Other Systems: Reviewed and Negative Physical Exam General Appearance: No Apparent Distress, Normal HEENT: Normal ENT Inspection, Pharynx Normal, TMs Normal Neck: Full Range of Motion, Non-Tender, Normal, Normal Inspection Respiratory: Chest Non-Tender, Lungs Clear, No Accessory Muscle Use, No Respiratory Distress, Normal Breath Sounds Cardiovascular: No Edema, No JVD, No Murmur, No Gallop, Normal Peripheral Pulses, Regular Rate/Rhythm Breast Exam: Deferred Gastrointestinal: No Organomegaly, Non Tender, No Pulsatile Mass, Normal Bowel Sounds, Soft Genitalia: Deferred Pelvic: Deferred Rectal: Deferred Extremities: No calf tenderness, Normal capillary refill, Normal inspection, Normal range of motion, Non-tender, No pedal edema Musculoskeletal : Apperance: Normal Neurologic: Alert, hand cloth folder II-XII nml as Tested, No Motor Deficits, Normal Affect, Normal Mood, No Sensory Deficits Cerebellar Function: Normal Reflexes: Normal Skin: Dry, Normal Color, Warm Lymphatic: No Adenopathy Was a procedure done? Was a procedure done?: No CP Differential Dx Differential Diagnosis: A-fib, Atrial Dysrhythmia, AV Block 1st Degree, Electrolyte Disorder, MAT, VA Differential Diagnosis: HTN Essential, HTN Accelerated Differential Diagnosis: Myocardial Infarction X-Ray, Labs, Meds, VS Vital Signs Date Time Temp Pulse Resp B/P (MAP) Pulse Ox O2 Delivery O2 Flow Rate FiO2 01/06/25 16:08 82 01/06/25 13:59 158 01/06/25 13:11 97.7 20 84/56 (65) 97.7 01/06/25 13:08 97.7 170 20 108/53 96 97.7 01/06/25 13:07 167 Lab Test 01/06/25 16:24 01/06/25 16:00 01/06/25 14:35 01/06/25 13:34 Range/Units Troponin I High Sensitivity Pending 81 *H 15 </=34 ng/L Urine Color Light-yellow Yellow Urine Clarity Clear Clear Urine pH 7.5 5.0-9.0 Urine Specific [place] 1.007 1.001-1.035 Urine Protein Negative Negative Urine Ketones Negative Negative Urine Blood Negative Negative /uL Urine Nitrite Negative Negative Urine Bilirubin Negative Negative Urine Urobilinogen Normal Negative mg/dL Urine Leukocyte Esterase Negative Negative /uL Urine RBC None seen 0 - 4 /hpf Urine Microscopic WBC 1 0-5 /HPF Urine Squamous Epithelial Cells Few <5 /hpf Urine Amorphous Crystals Few None Seen /hpf Urine Bacteria None seen None Seen /hpf Urine Glucose Normal Normal mg/dL White Blood Count 5.6 4.4-10.8 10^3/uL Red Blood Count 5.06 4.0-5.20 10^6/uL Hemoglobin 15.0 12.2-16.2 g/dL Hematocrit 44.7 36.0-46.0 % Mean Corpuscular Volume 88.5 80.0-100.0 fL Mean Corpuscular Hemoglobin 29.6 28.0-32.0 pg Mean Corpuscular Hemoglobin Concent 33.5 32.0-36.0 g/dL Red Cell Distribution Width 14.7 H 11.8-14.3 % Platelet Count 67 L 140-450 10^3/uL Mean Platelet Volume 9.5 6.9-10.8 fL Neutrophils (%) (Auto) 43.8 37.0-80.0 % Lymphocytes (%) (Auto) 42.0 10.0-50.0 % Monocytes (%) (Auto) 12.6 H 0.0-12.0 % Eosinophils (%) (Auto) 1.2 0.0-7.0 % Basophils (%) (Auto) 0.4 0.0-2.0 % Neutrophils # (Auto) 2.5 1.6-8.6 10 ^3/uL Lymphocytes # (Auto) 2.4 0.4-5.4 10 ^3/uL Monocytes # (Auto) 0.7 0-1.3 10 ^3/uL Eosinophils # (Auto) 0.1 0-0.8 10 ^3/uL Basophils # (Auto) 0 0-0.2 10 ^3/uL Nucleated Red Blood Cells 0.2 % Platelet Estimate Decreased Sodium Level 144 136-145 mmol/L Potassium Level 3.7 3.5-5.1 mmol/L Chloride Level 108 H 98-107 mmol/L Carbon Dioxide Level 20 20-31 mmol/L Anion Gap 16 H 5-15 Blood Urea Nitrogen 9 9-23 mg/dL Creatinine 0.81 0.550-1.02 mg/dL Glomerular Filtration Rate Calc 82 >90 mL/min BUN/Creatinine Ratio 11.1 10.0-20.0 Serum Glucose 92 74-106 mg/dL Lactic Acid Level 2.5 *H 0.4-2.0 mmol/L Calcium Level 8.6 L 8.7-10.4 mg/dL Current Medications Medications (Trade) Dose Ordered Sig/Vicente Route Start Time Stop Time Status Last Admin Sodium Chloride 1,000 ml @ 1,000 mls/hr Q1H ONCE IV 01/06/25 13:15 01/06/25 14:14 DC 01/06/25 13:14 Amiodarone HCl 100 ml @ 600 mls/hr ONCE ONCE IV 01/06/25 14:15 01/06/25 14:24 DC 01/06/25 14:13 Amiodarone HCl 250 ml @ 33.33 mls/ hr Q7H31M ONCE IV 01/06/25 14:15 01/06/25 21:45 01/06/25 14:24 [facility] [id number] [place] [id number] Ph: [phone] DIAGNOSTIC IMAGING Diagnostic Imaging Report : [id number] Signed PATIENT: CORY REDDY ACCT: [id number] UNIT: [id number] : 1960 LOC: ER ROOM / BED: / AGE / SEX: 64 / F ADM STATUS: REG ER SERVICE 1310 ORDERING PHYSICIAN: CK RODRIGUEZ MD PROCEDURE(s): CXRP - CHEST PORTABLE REASON: cp ORDER NUMBER(s): [id number], ACCESSION NUMBER(s): [id number] INDICATION: cp TECHNIQUE: Frontal view of the chest. COMPARISON: XY CHEST PORTABLE on DOS: 06/19/24 FINDINGS: . The heart and mediastinal contours are grossly unremarkable. There is no evidence of pleural disease. The lungs are clear. The bony structures of the chest are intact without fracture. IMPRESSION: 1. No evidence of acute disease. ATED BY: FLOWER ZENDEJAS MD DICTATED DATE/TIME: 01/06/251402 SIGNED BY: FLOWER ZENDEJAS MD SIGNED DATE/TIME: 01/06/251402 CC: Images Reviewed?: Images reviewed and evaluated by me Time of 1ST Reevaluation: 14:11 Reevaluation 1ST: Unchanged Patient Education/Counseling: Diagnosis, Treatment Family Education/Counseling: No Family Present SEPSIS Sepsis Screen Physician Orders Chest Portable (01/06/25 13:10) Electrocardigram (01/06/25 13:10) Troponin-I Hs (01/06/25 16:10) Electrocardigram (01/06/25 14:10) Electrocardigram (01/06/25 16:10) Amiodarone 450mg/250ml Ae (Cordarone) (01/06/25 14:15) Amiodarone 450mg/250ml Ae (Cordarone) (01/06/25 20:15) Vital Signs Date Time Temp Pulse Resp B/P (MAP) Pulse Ox O2 Delivery O2 Flow Rate FiO2 01/06/25 16:08 82 01/06/25 13:59 158 01/06/25 13:11 97.7 20 84/56 (65) 97.7 01/06/25 13:08 97.7 170 20 108/53 96 97.7 01/06/25 13:07 167 Laboratory Tests Test 01/06/25 13:34 Lactic Acid Level 2.5 mmol/L (0.4-2.0) *H White Blood Count 5.6 10^3/uL (4.4-10.8) Medications Medications Dose Ordered Sig/Vicente Route Start Time Stop Time Status Last Admin Dose Admin Amiodarone HCl 100 ml @ 600 mls/hr ONCE ONCE IV 01/06/25 14:15 01/06/25 14:24 DC 01/06/25 14:13 Amiodarone HCl 250 ml @ 33.33 mls/ hr Q7H31M ONCE IV 01/06/25 14:15 01/06/25 21:45 01/06/25 14:24 Sodium Chloride 1,000 ml @ 1,000 mls/hr Q1H ONCE IV 01/06/25 13:15 01/06/25 14:14 DC 01/06/25 13:14 Departure 1 Departure Time of Disposition: 17:04 (Patient presented with chest pain that was concerning for possible STEMI, ACS, PE, Pneumonia, Muscle Strain, COPD, Dissection. Data: 1. I ordered and reviewed the result of at least 3 labs including a CBC, BMP, and Troponin. 2. I independently interpreted the following tests: EKG which shows AFib with RVR and Chest X-ray which shows benign chest.Risk:This patient has a high risk of morbidity due to further diagnostic testing or treatment and may suffer from an acute cardiac or respiratory disorder. Workup reveals AFib with RVR and concern for ACS and patient should be admitted for further workup and possible expert consultation. ) Impression: Primary Impression: Atrial fibrillation with RVR Additional Impressions: Acute chest pain Shortness of breath Disposition: ADMITTED INPATIENT Admit to: [facility] Condition: Guarded Critical Care Note Critical Care Time?: Yes Critical care comment: Acute chest pain and AFib with RVR Authorized and Performed by: Ck Rodriguez MD Total critical care time: Approximately 119 minutes Due to a high probability of clinically significant, life threatening deterioration, the patient required my highest level of preparedness to intervene emergently and I personally spent this critical care time directly and personally managing the patient. This critical care time included obtaining a history; examining the patient; pulse oximetry; ordering and review of studies; arranging urgent treatment with development of a management plan; evaluation of patient's response to treatment; frequent reassessment; and, discussions with other providers. This critical care time was performed to assess and manage the high probability of imminent, life-threatening deterioration that could result in multi-organ failure. It was exclusive of separately billable procedures and treating other patients and teaching time. Please see my other sections and the rest of the note for further information on patient assessment and treatment. Stability Stability form required: No Heart Score Heart Score: Heart Score Response (Comments) Value History Highly Suspicious 2 EKG Repolarization Disturb 1 Age 45-64 1 Risk Factors >3 or Hx ASHD 2 Troponin >3 x's Normal limit 2 Total 8 I personally scribed for CK RODRIGUEZ MD ([email or web address]) on 01/06/25 at 13:13. Electronically submitted by Kadeem Ayala ([email or web address]). I personally scribed for CK RODRIGUEZ MD ([email or web address]) on 01/06/25 at 15:03. Electronically submitted by Kadeem Ayala ([email or web address]). CK RODRIGUEZ MD Jan 06, 2025 13:13
[2025-01-06] MEDS: SODIUM CHLORIDE 0.9% 1,000 ML IV ONE (13:14)
[2025-01-06 13:30] VITALS: PULSE 165; RESP 21; O2SAT 94
[2025-01-06 14:05] LABS: Hematocrit 44.7 % (36.0-46.0); Hemoglobin 15.0 g/dL (12.2-16.2); Mean Corpuscular Hemoglobin 29.6 pg (28.0-32.0); Mean Corpuscular Volume 88.5 fL (80.0-100.0); Nucleated Red Blood Cells % 0.2 %
--- NOTE | 2025-01-06 14:05 | DVH ---
INDICATION: cp TECHNIQUE: Frontal view of the chest. COMPARISON: XY CHEST PORTABLE on DOS: 06/19/24 FINDINGS: . The heart and mediastinal contours are grossly unremarkable. There is no evidence of pleural disease. The lungs are clear. The bony structures of the chest are intact without fracture. IMPRESSION: 1. No evidence of acute disease.
[2025-01-06] MEDS: AMIODARONE BOLUS KIT 100 ML IV ONE (14:13)
[2025-01-06 14:32] LABS: Potassium 3.7 mmol/L (3.5-5.1); Sodium 144 mmol/L (136-145)
[2025-01-06 14:33] LABS: Anion Gap 16 (5-15)
[2025-01-06 14:38] LABS: BUN/Creatinine Ratio 11.1 (10.0-20.0); Blood Urea Nitrogen 9 mg/dL (9-23); Glucose 92 mg/dL (74-106)
[2025-01-06 14:47] LABS: Calcium 8.6 mg/dL (8.7-10.4); Carbon Dioxide 20 mmol/L (20-31); Chloride 108 mmol/L (98-107)
[2025-01-06 15:22] LABS: Lactic Acid w/Reflex 2.5 mmol/L (0.4-2.0)
[2025-01-06 16:33] LABS: Urine Amorphous Crystal FEW /hpf (None Seen); Urine Protein, UAD Negative (Negative)
--- NOTE | 2025-01-06 18:26 | ECG ---
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
[2025-01-06] MEDS: MORPHINE SULFATE 4 MG/ML SYR/VIAL IV ONE (19:30)
[2025-01-06] MEDS: ONDANSETRON HCL 4 MG/2 ML VIAL IV ONE (19:30)
[2025-01-06] MEDS ORDERED: ONDANSETRON HCL 4 MG/2 ML VIAL IV PRN (20:00)
[2025-01-06] MEDS ORDERED: MORPHINE SULFATE INJ 2 MG/ml SYRG IV PRN (20:00)
[2025-01-06] MEDS ORDERED: NITROGLYCERIN 0.4 MG SL TAB SL PRN (20:00)
[2025-01-06] MEDS ORDERED: ACETAMINOPHEN 325 MG TAB PO PRN (20:00)
[2025-01-06 20:32] VITALS: PULSE 83; RESP 16; O2SAT 95
--- NOTE | 2025-01-06 21:28 | DVHHP2 ---
History of Present Illness Reason for Visit: Chest pain History of Present Illness 64-year-old female presents for evaluation of chest pain. Patient reports that today while she was at [employer] she developed left-sided sharp pain with associated palpitations and shortness for breath. She became dizzy and diaphoretic as well. Patient is currently complaining of left lower extremity calf pain. Currently denies any chest pain. No other acute symptoms. Past Medical History Hypertension, anxiety, lupus, DVT Past Surgical History BTL Family History Noncontributory Smoke: No ALCOHOL: none Drugs: None Lives: with Family Review of Systems Review of Systems Review of systems are currently negative otherwise addressed in HPI. Allergies: Coded Allergies: Ibuprofen (Verified Adverse Reaction, Mild, 06/19/24) Medications Current Medications Medications Dose Ordered Sig/Vicente Route Start Time Stop Time Status Last Admin Dose Admin Amiodarone HCl 250 ml @ 16.66 mls/ hr Q15H1M IV 01/06/25 20:15 01/06/25 20:30 16.66 MLS/HR Aspirin 162 mg DAILY PO 01/07/25 10:00 Atorvastatin Calcium 10 mg HS PO 01/06/25 22:00 Divalproex Sodium 500 mg BID PO 01/06/25 22:00 Enalapril Maleate 20 mg DAILY PO 01/07/25 10:00 Gabapentin 300 mg TID PO 01/06/25 22:00 Triamterene/HCTZ 1 cap DAILY PO 01/07/25 10:00 Levothyroxine Sodium 25 mcg QAM@0600 PO 01/07/25 06:00 Ondansetron HCl 4 mg Q4HP PRN IV 01/06/25 20:00 Acetaminophen 650 mg Q6HP PRN PO 01/06/25 20:00 Nitroglycerin 0.4 mg Q5MINP PRN SL 01/06/25 20:00 Morphine Sulfate 2 mg Q30M PRN IV 01/06/25 20:00 Exam Vital Signs Vital Signs Date Time Temp Pulse Resp B/P (MAP) Pulse Ox O2 Delivery O2 Flow Rate FiO2 01/06/25 20:32 83 16 95 Room Air* 0 21 01/06/25 20:00 98.1 107/85 (92) 98.1 Exam Gen: 64-year-old female in mild distress, morbidly obese Skin: Warm, dry, normal color and texture, no rash. HEENT: Normocephalic atraumatic, mucous membranes moist and pink. Neck: Cervical and supraclavicular nodes normal without enlargement, trachea is midline, thyroid gland is normal without masses. Pulmonary: Clear to auscultation and percussion bilaterally. Cardiac: Irregular rhythm Abdomen: Soft, nontender, nondistended, bowel sounds present all 4 quadrants, no guarding, no rigidity, no organomegaly. Extremities: No cyanosis, clubbing, no edema Neuro: Cranial nerves II through XII grossly intact, normal affect and speech, no focal motor deficits. Labs/Xrays ORDERING PHYSICIAN: CK RODRIGUEZ MD PROCEDURE(s): CXRP - CHEST PORTABLE REASON: cp ORDER NUMBER(s): [id number], ACCESSION NUMBER(s): [id number] INDICATION: cp TECHNIQUE: Frontal view of the chest. COMPARISON: XY CHEST PORTABLE on DOS: 06/19/24 FINDINGS: . The heart and mediastinal contours are grossly unremarkable. There is no evidence of pleural disease. The lungs are clear. The bony structures of the chest are intact without fracture. IMPRESSION: 1. No evidence of acute disease. Labs Test 01/06/25 17:03 01/06/25 16:24 01/06/25 16:00 01/06/25 13:34 Range/Units Lactic Acid Level 1.3 0.4-2.0 mmol/L Troponin I High Sensitivity 791 *H </=34 ng/L Urine Color Light-yellow Yellow Urine Clarity Clear Clear Urine pH 7.5 5.0-9.0 Urine Specific [place] 1.007 1.001-1.035 Urine Protein Negative Negative Urine Ketones Negative Negative Urine Blood Negative Negative /uL Urine Nitrite Negative Negative Urine Bilirubin Negative Negative Urine Urobilinogen Normal Negative mg/dL Urine Leukocyte Esterase Negative Negative /uL Urine RBC None seen 0 - 4 /hpf Urine Microscopic WBC 1 0-5 /HPF Urine Squamous Epithelial Cells Few <5 /hpf Urine Amorphous Crystals Few None Seen /hpf Urine Bacteria None seen None Seen /hpf Urine Glucose Normal Normal mg/dL White Blood Count 5.6 4.4-10.8 10^3/uL Red Blood Count 5.06 4.0-5.20 10^6/uL Hemoglobin 15.0 12.2-16.2 g/dL Hematocrit 44.7 36.0-46.0 % Mean Corpuscular Volume 88.5 80.0-100.0 fL Mean Corpuscular Hemoglobin 29.6 28.0-32.0 pg Mean Corpuscular Hemoglobin Concent 33.5 32.0-36.0 g/dL Red Cell Distribution Width 14.7 H 11.8-14.3 % Platelet Count 67 L 140-450 10^3/uL Mean Platelet Volume 9.5 6.9-10.8 fL Neutrophils (%) (Auto) 43.8 37.0-80.0 % Lymphocytes (%) (Auto) 42.0 10.0-50.0 % Monocytes (%) (Auto) 12.6 H 0.0-12.0 % Eosinophils (%) (Auto) 1.2 0.0-7.0 % Basophils (%) (Auto) 0.4 0.0-2.0 % Neutrophils # (Auto) 2.5 1.6-8.6 10 ^3/uL Lymphocytes # (Auto) 2.4 0.4-5.4 10 ^3/uL Monocytes # (Auto) 0.7 0-1.3 10 ^3/uL Eosinophils # (Auto) 0.1 0-0.8 10 ^3/uL Basophils # (Auto) 0 0-0.2 10 ^3/uL Nucleated Red Blood Cells 0.2 % Platelet Estimate Decreased Sodium Level 144 136-145 mmol/L Potassium Level 3.7 3.5-5.1 mmol/L Chloride Level 108 H 98-107 mmol/L Carbon Dioxide Level 20 20-31 mmol/L Anion Gap 16 H 5-15 Blood Urea Nitrogen 9 9-23 mg/dL Creatinine 0.81 0.550-1.02 mg/dL Glomerular Filtration Rate Calc 82 >90 mL/min BUN/Creatinine Ratio 11.1 10.0-20.0 Serum Glucose 92 74-106 mg/dL Calcium Level 8.6 L 8.7-10.4 mg/dL SEPSIS Sepsis Screen Date sepsis recognized/suspect: Jan 06, 2025 Time Sepsis recognized/suspect: 1329 Recent Procedure: No On Antibiotic Therapy: No Respiratory Rate >20: Yes Heart Rate >90: Yes Temp<36 C (96.8 F) or >38.3 C: No SBP <90 or MAP <65 mmHG: No New Acute Mental Status Change: No Is the patient on CPAP, BIPAP,: No Physician Orders Amiodarone 450mg/250ml Ae (Cordarone) (01/06/25 14:15) Amiodarone 450mg/250ml Ae (Cordarone) (01/06/25 20:15) * Cardiology Consult (01/06/25 19:50) Aspirin Tablet (01/07/25 10:00) Atorvastatin (Lipitor) (01/06/25 22:00) Divalproex Dr Tablet (Depakote "Dr" Tabl (01/06/25 22:00) Enalapril Tablet (Vasotec Tablet) (01/07/25 10:00) Gabapentin Capsule (Neurontin Capsule) (01/06/25 22:00) Triamterene/Hctz (Dyazide 37.5/25mg Caps (01/07/25 10:00) Levothyroxine Tablet (Synthroid Tablet) (01/07/25 06:00) Basic Metabolic Panel (01/07/25 04:00) Enoxaparin Sodium (Lovenox) (01/06/25 20:00) Admit (01/06/25 19:50) Ondansetron Hcl (Zofran) (01/06/25 20:00) Cardiac Diet-2gna,Lofat,Lochol (01/07/25 Breakfast) Echo 2d Mode Cardiac Dop (01/06/25 19:50) Condition: Fair (01/06/25 19:50) Acetaminophen Tablet (Tylenol Tablet) (01/06/25 20:00) Bedrest With Bathroom Privileg (01/06/25 19:50) Nitroglycerin Sublingual (Ntrostat Subli (01/06/25 20:00) Morphine Sulfate Injection (01/06/25 20:00) Stat Ekg For Chest Pain (01/06/25 19:50) Notify Md Of Changes From Base (01/06/25 19:50) Cna Hha For 24 Hours (01/06/25 19:50) Emergency Dysrhythmia Protocol (01/06/25 19:50) Rhythm Strips Once Every Shift (01/06/25 19:50) Oxygen By Nasal Cannula (01/06/25 19:50) Lt Lower Dvt (01/06/25 21:05) Vital Signs Date Time Temp Pulse Resp B/P (MAP) Pulse Ox O2 Delivery O2 Flow Rate FiO2 01/06/25 20:32 83 16 95 Room Air* 0 21 01/06/25 20:00 98.1 83 17 107/85 (92) 95 98.1 01/06/25 17:00 71 12 120/70 (87) 93 01/06/25 16:08 82 01/06/25 16:00 84 12 116/77 (90) 93 01/06/25 15:45 88 12 125/77 (93) 95 01/06/25 14:30 129 12 121/67 (85) 96 01/06/25 13:59 158 01/06/25 13:30 98.0 165 21 89/57 (68) 94 98.0 01/06/25 13:30 165 21 94 Room Air* 0 21 Laboratory Tests Test 01/06/25 13:34 01/06/25 17:03 Lactic Acid Level 2.5 mmol/L (0.4-2.0) *H 1.3 mmol/L (0.4-2.0) White Blood Count 5.6 10^3/uL (4.4-10.8) Medications Medications Dose Ordered Sig/Vicente Route Start Time Stop Time Status Last Admin Dose Admin Amiodarone HCl 100 ml @ 600 mls/hr ONCE ONCE IV 01/06/25 14:15 01/06/25 14:24 DC 01/06/25 14:13 600 MLS/HR Amiodarone HCl 250 ml @ 16.66 mls/ hr Q15H1M IV 01/06/25 20:15 01/06/25 20:30 16.66 MLS/HR Amiodarone HCl 250 ml @ 33.33 mls/ hr Q7H31M ONCE IV 01/06/25 14:15 01/06/25 21:45 01/06/25 14:24 33.33 MLS/HR Sodium Chloride 1,000 ml @ 1,000 mls/hr Q1H ONCE IV 01/06/25 13:15 01/06/25 14:14 DC 01/06/25 13:14 1,000 MLS/HR Assessment/Plan Assessment/Plan Assessment AFib with RVR Elevated troponin, possible demand ischemia Thrombocytopenia Hypertension Morbid obesity Plan Admit the patient to telemetry to the hospitalist Continue amiodarone drip Cardiology consultation Resume home medications Continue treatment per orders. Plan discussed with: Patient My Orders Orders - NATHANGENEVAMARAHumberto ECHEVARRIA Procedure Category Date Status Time * Cardiology Consult CONS 01/06/25 Transmitted 19:50 Aspirin Tablet PHA 01/07/25 In Process 10:00 Atorvastatin (Lipitor) PHA 01/06/25 In Process 22:[address] Tablet PHA 01/06/25 In Process (Depakote "Dr" Tabl 22:00 Enalapril Tablet PHA 01/07/25 In Process (Vasotec Tablet) 10:00 Gabapentin Capsule PHA 01/06/25 In Process (Neurontin Capsule) 22:00 Triamterene/Hctz PHA 01/07/25 In Process (Dyazide 37.5/25mg 10:00 Levothyroxine Tablet PHA 01/07/25 In Process (Synthroid Tablet) 06:00 Basic Metabolic Panel LAB 01/07/25 Verified 04:00 Enoxaparin Sodium PHA 01/06/25 Logged (Lovenox) 20:00 Admit ADMIT 01/06/25 Transmitted 19:50 Ondansetron Hcl PHA 01/06/25 In Process (Zofran) 20:00 Cardiac DIET 01/07/25 Transmitted Diet-2gna,Lofat,Lochol Breakfast Echo 2d Mode Cardiac US 01/06/25 Logged DOP 19:50 Condition: Fair EDDIE 01/06/25 In Process 19:50 Acetaminophen Tablet PHA 01/06/25 In Process (Tylenol Tablet) 20:00 Bedrest With Bathroom EDDIE 01/06/25 In Process Privileg 19:50 Nitroglycerin PHA 01/06/25 In Process Sublingual (Ntrostat 20:00 Morphine Sulfate PHA 01/06/25 In Process Injection 20:00 Stat Ekg For Chest EDDIE 01/06/25 In Process Pain 19:50 Notify Of Changes EDDIE 01/06/25 In Process From Base 19:50 Cna Hha For EDDIE 01/06/25 In Process 24 Hours 19:50 Emergency Dysrhythmia EDDIE 01/06/25 In Process Protocol 19:50 Rhythm Strips Once EDDIE 01/06/25 In Process Every Shift 19:50 Oxygen By Nasal RT 01/06/25 Transmitted Cannula 19:50 Lt Lower Dvt US 01/06/25 Logged 21:05 Date of Service: Jan 06, 2025 Billing Provider: GENEVA NATHAN Common Visit Codes: [id number] INP/OBS CARE (HIGH) GENEVA NATHAN Jan 06, 2025 21:28
[2025-01-06] MEDS ORDERED: ENOXAPARIN SOD 100 MG/1 ML SYRINGE SC ONE (21:30)
--- NOTE | 2025-01-06 21:56 | DVH ---
CLINICAL HISTORY: RULE OUT DVT TECHNIQUE: Color and duplex doppler imagine of the left lower extremity veins was performed. Vessel compression if possible was also performed. COMPARISON: US BILAT LOWER DVT on DOS: 06/19/24 FINDINGS: Left common femoral vein: Normal compressibility and flow. Left superficial femoral vein: Normal compressibility and flow. Left popliteal vein: Normal compressibility and flow. There is a 4.1 cm Canas's cyst with debris. IMPRESSION: No sonographic evidence for DVT within the left lower extremity veins. 4.1 cm Canas's cyst with debris
[2025-01-06 21:57] VITALS: BP 142/77; PULSE 69; RESP 14; TEMP 98.5; O2SAT 98
[2025-01-06 21:59] LABS: Triglycerides 83 mg/dL (< 150)
[2025-01-06 22:01] LABS: Cholesterol 184 mg/dL (< 200); HDL Cholesterol 59 mg/dL (40-59)
[2025-01-06 22:14] VITALS: BP 142/77; PULSE 69; RESP 14; TEMP 98.5; O2SAT 98
[2025-01-07] VITALS (8 sets, daily range): BP systolic 108–143; BP diastolic 57–80; PULSE 72–91; RESP 7–19; TEMP 97.7–98.4; O2SAT 95–98
[2025-01-07] MEDS: ENOXAPARIN SOD 100 MG/1 ML SYRINGE SC ONE (00:04)
[2025-01-07] MEDS: GABAPENTIN 300 MG CAP PO SCH (00:08)
[2025-01-07] MEDS: ATORVASTATIN 20 MG TAB PO SCH (00:09)
[2025-01-07] MEDS ORDERED: IOHEXOL 350 MG/ML 100ML IJ ONE (00:38)
--- NOTE | 2025-01-07 02:00 | DVH ---
CTA Chest with intravenous contrast INDICATION: r/o pe COMPARISON: XY CHEST PORTABLE on DOS: 01/06/25, US ECHO 2D MODE CARDIAC DOP on DOS: 06/20/24, CT CT AB PEL WO CON-NO ORAL OR IV on DOS: 06/19/24, XY CHEST PORTABLE on DOS: 06/19/24 TECHNIQUE: Multidetector spiral CTA of the chest was performed of the chest with intravenous contrast. PULMONARY ANGIOGRAPHY PROTOCOL was utilized using a bolus- tracking technique centered on the main pulmonary artery. Axial, coronal and sagittal multiplanar and MIP reformats were performed. Radiation Dose : 1. Chest: CTDI volume is 26.9 mGy. Dose-length product is 2264.05 mGy*cm The dose indicators for CT are the volume Computed Tomography (CT) Dose Index (CTDIvol) and the Dose Length Product (DLP), and are measured in units of mGy and mGy-cm, respectively. These indicators are not patient dose, but values generated from the CT scanner acquisition factors. The report includes radiation exposure data for exposures received during this examination. Findings: Pulmonary artery: No central, lobar, or segmental pulmonary embolus. Peripheral vessels are poorly opacified and not well assessed. Lower neck: Normal thyroid. Lungs: No focal consolidation, pleural effusion or pneumothorax. Mild interlobular septal thickening with hazy ground-glass opacity throughout both lungs. Heart/Vascular Structures: Normal heart size. No pericardial effusion. Lymph Nodes: No adenopathy Pleura: No pleural effusion or significant pneumothorax. Musculoskeletal: No acute osseous abnormality. Soft tissues: Normal. Upper abdomen: Limited portions of the upper abdomen are unremarkable. IMPRESSION: No pulmonary embolus. Mild fluid overload.
[2025-01-07 06:35] LABS: Potassium 4.0 mmol/L (3.5-5.1); Sodium 144 mmol/L (136-145)
[2025-01-07 06:36] LABS: Anion Gap 8 (5-15); Carbon Dioxide 25 mmol/L (20-31)
[2025-01-07 06:41] LABS: Glucose 100 mg/dL (74-106)
[2025-01-07 06:42] LABS: BUN/Creatinine Ratio 11.6 (10.0-20.0)
[2025-01-07] MEDS: LEVOTHYROXINE SODIUM 25 MCG TAB PO SCH (06:50)
[2025-01-07 06:51] LABS: Blood Urea Nitrogen 8 mg/dL (9-23); Calcium 8.4 mg/dL (8.7-10.4); Chloride 111 mmol/L (98-107)
--- NOTE | 2025-01-07 09:02 | ECG ---
[facility] Test Date: 2025-01-06 Test Time: 23:23:38 Pat Name: CORY REDDY Department: Room: 0289T A Gender: F Negative Restorer: SEKOU : 1960 Requested By: CK RODRIGUEZ Order Number: [id number] Reading MD: Arcadio Rodney Measurements Intervals [place] Rate: 65 P: 43 MA: 181 QRS: 41 QRSD: 91 T: 25 QT: 488 QTc: 508 Interpretive Statements Sinus rhythm Probable left ventricular hypertrophy Anterior ST elevation, probably due to LVH Prolonged QT interval Artifact in lead(s) V3 and baseline wander in lead(s) V1,V3,V4 Electronically Signed On 01-11-2025 11:04:10 PST by Arcadio Rodney Please click the below link to view image of tracing.
--- NOTE | 2025-01-07 09:02 | ECG ---
[facility] Test Date: 2025-01-06 Test Time: 23:25:13 Pat Name: CORY REDDY Department: Room: 0289T A Gender: F Blind Cleaner: SEKOU : 1960 Requested By: CK RODRIGUEZ Order Number: [id number] Reading MD: Arcadio Rodney Measurements Intervals [place] Rate: 67 P: 55 NC: 169 QRS: 43 QRSD: 97 T: 25 QT: 499 QTc: 527 Interpretive Statements Sinus rhythm Prolonged QT interval Baseline wander in lead(s) II,III,aVF Electronically Signed On 01-11-2025 11:04:13 PST by Arcadio Rodney Please click the below link to view image of tracing.
[2025-01-07] MEDS: TRIAMTERENE/HCTZ 37.5/25 MG CAP/TAB PO SCH (09:22)
[2025-01-07] MEDS: ENALAPRIL MALEATE 10 MG TAB PO SCH (09:22)
[2025-01-07 10:06] LABS: Hematocrit 37.8 % (36.0-46.0); Hemoglobin 12.5 g/dL (12.2-16.2); Mean Corpuscular Hemoglobin 29.9 pg (28.0-32.0); Mean Corpuscular Volume 90.6 fL (80.0-100.0); Nucleated Red Blood Cells % 0.5 %
[2025-01-07 10:19] LABS: Anion Gap 9 (5-15); BUN/Creatinine Ratio 9.9 (10.0-20.0); Carbon Dioxide 23 mmol/L (20-31); Glucose 100 mg/dL (74-106); Magnesium 1.9 mg/dL (1.6-2.6); Potassium 4.1 mmol/L (3.5-5.1); Sodium 144 mmol/L (136-145); Total Protein 6.6 g/dL (5.7-8.2); Triglycerides 48 mg/dL (< 150)
[2025-01-07 10:20] LABS: Bilirubin, Total 1.2 mg/dL (0.2-1.0); Cholesterol 147 mg/dL (< 200); HDL Cholesterol 46 mg/dL (40-59)
[2025-01-07 10:23] LABS: Benzodiazephine Screen, Urine Neg (NEGATIVE)
[2025-01-07 10:23] LABS: Alanine Aminotransferase 65 U/L (7-40); Albumin 2.7 g/dL (3.2-4.8); Alkaline Phosphatase 125 U/L (46-116); Blood Urea Nitrogen 7 mg/dL (9-23); Calcium 8.2 mg/dL (8.7-10.4); Chloride 112 mmol/L (98-107)
[2025-01-07 10:24] LABS: Cannabinoid Screen, Urine Neg (NEGATIVE)
[2025-01-07 10:28] LABS: Amphetamine Screen, Urine Neg (NEGATIVE); Barbiturate Scree,Urine Neg (NEGATIVE); Cocaine Screen, Urine Neg (NEGATIVE); Opiate Scree,Urine Neg (NEGATIVE); Phencyclidine Screen, Urine Neg (NEGATIVE)
--- NOTE | 2025-01-07 10:42 | DVHCONRES ---
Date Seen: Jan 07, 2025 Resident Creating Document: ZOE VERNON RESIDENT Referring Physician Christian FORREST Reason for Consultation AFib with RVR History of Present Illness This is a 64-year-old female with a PMH of lupus, fibromyalgia, arthritis, bipolar disease, DVT presented to the ED with the chief complaints of palpitations and syncope. Patient reported that she was preparing for scheduled appointment with primary care and waiting for a bus after missing the base patient started having dizziness, rapid and hard heartbeat in and felt like that she is going to pass out and passed ordered few sec. They called 911 and the bring her to ED. Patient reported she had never experienced symptoms like this before. Patient also reported she felt chest pain at that moment which is central and radiating to back and neck. On arrival to ED patient EKG found AFib ith RVR, started on amiodarone drip. Initial troponins 15 > 81 > 791 > 2336 and BNP is 144, magnesium 1.9. PMH as above PSH: Left toe surgery and blood clot surgery Family history: History of heart disease in father Social history: Lives at home. Denies smoking, alcohol but tried marijuana occasionally. Patient drinks coffee occasionally allergies: Ibuprofen ROS: Patient seen and examined at the bedside. Reporting having palpitations and dizziness which is better compared to admission. Family History: Cancer G8 MOTHER (OVARIAN) Maternal Grandmother (Ovarian) Maternal Aunt (Leukemia) Maternal Uncle Family history: Cardiovascular disease G8 FATHER Allergies: Coded Allergies: Ibuprofen (Verified Adverse Reaction, Mild, 06/19/24) Home Meds Active Scripts Lorazepam (ATIVAN TABLET) 0.5 Mg Tb, 1 TAB PO TID PRN, #30 TAB Prov:JAMES WARD MD 06/23/24 Pantoprazole Sodium Sesquihydr (Pantoprazole Sodium) 40 Mg Tab, 40 MG PO DAILY, #10 TAB Prov:JAMES WARD MD 06/23/24 Ciprofloxacin Hcl (Cipro) 500 Mg Tab, 1 TAB PO BID, #20 TAB Prov:JAMES WARD MD 06/23/24 Hydrochlorothiazide W/Triamter (Triamterene/Hydrochloroth) 1 Tab Tab, 1 TAB PO DAILY, #30 TAB 5 Refills Prov:KATHIE THOMPSON N.P. 11/02/13 [Protonix] No Conflict Check, 20 MG PO DAILY Prov:KATHIE THOMPSON N.P. 11/02/13 Quetiapine Fumerate (Seroquel) 25 Mg Tab, 50 MG PO HS, #60 Prov:KATHIE THOMPSON N.P. 11/02/13 Reported Medications Hydroxyzine Pamoate (Hydroxyzine Pamoate) 50 Mg Cap, 1 CAP PO TID 06/19/24 Levothyroxine Sodium (Levothyroxine Sodium) 25 Mcg Tab, 1 TAB PO DAILY 06/19/24 Divalproex Sodium (Divalproex Sodium) 500 Mg Tab, 2 TAB PO BID 06/19/24 Citalopram Hydrobromide (Citalopram Hydrobromide) 20 Mg Tab, 20 MG PO BID, #30 11/02/13 Aspirin (Aspirin Ec Low Dose) 81 Mg Tab, 81 MG PO DAILY, #30 11/02/13 Ibuprofen (Ibuprofen) 600 Mg Tab, 600 MG PO PRN, #120 11/02/13 Enalapril Maleate (Enalapril Maleate) 20 Mg Tab, 20 MG PO DAILY, #30 11/02/13 Amitriptyline Hcl (Amitriptyline Hcl) 25 Mg Tab, 25 MG PO BID, #60 11/02/13 Gabapentin (Gabapentin) 300 Mg Cap, 300 MG PO TID, #90 11/02/13 Lurasidone Hcl (LATUDA) 80 Mg Tab, 80 MG PO DAILY, #60 11/02/13 Current Medications Current Medications Medications (Trade) Dose Ordered Sig/Vicente Route PRN Reason Start Time Stop Time Status Last Admin Amiodarone HCl 250 ml @ 16.66 mls/ hr Q15H1M IV 01/06/25 20:15 01/06/25 20:30 Aspirin 162 mg DAILY PO 01/07/25 10:00 Hold Atorvastatin Calcium (Lipitor) 10 mg HS PO 01/06/25 22:00 01/07/25 00:09 Divalproex Sodium (Depakote "Dr" Tablet) 500 mg BID PO 01/06/25 22:00 01/07/25 09:22 Enalapril Maleate (Vasotec Tablet) 20 mg DAILY PO 01/07/25 10:00 01/07/25 09:22 Gabapentin (Neurontin Capsule) 300 mg TID PO 01/06/25 22:00 01/07/25 06:50 Triamterene/HCTZ (Dyazide 37.5/ 25MG Capsule) 1 cap DAILY PO 01/07/25 10:00 01/07/25 09:22 Levothyroxine Sodium (Synthroid Tablet) 25 mcg QAM@0600 PO 01/07/25 06:00 01/07/25 06:50 Ondansetron HCl (Zofran) 4 mg Q4HP PRN IV NAUSEA / VOMITING 01/06/25 20:00 Acetaminophen (Tylenol Tablet) 650 mg Q6HP PRN PO PAIN SCALE 1-3 OR TEMP>100.4 01/06/25 20:00 Nitroglycerin (Ntrostat Sublingual) 0.4 mg Q5MINP PRN SL FOR CHEST PAIN 01/06/25 20:00 Morphine Sulfate 2 mg Q30M PRN IV FOR CHEST PAIN 01/06/25 20:00 Vital Signs Vital Signs Date Time Temp Pulse Resp B/P (MAP) Pulse Ox O2 Delivery O2 Flow Rate FiO2 01/07/25 09:22 114/66 01/07/25 08:10 98.1 78 18 95 98.1 01/06/25 22:14 Room Air* 0 21 Physical Exam Pt is lying on bed General Appearance: Alert, Oriented X3, Cooperative, Not in acute distress HEENT: Atraumatic, Mucous membranes moist/pink Respiratory: Clear to auscultation, Normal air movement, No added sounds Cardiovascular: Regular rate, Normal S1, Normal S2, No murmurs Abdominal: Active bowel sounds, Soft, no distention, no tenderness Extremities: No edema, Normal pulses, No tenderness/swelling Skin: No Significant rash, except past surgical scars Neuro: Normal speech, sensorimotor deficits none Psych/Mental Status: Mental status NL, Mood NL Nurse was there as cheerleading coach during examination Labs/Diagnostic Data Labs Test 01/07/25 05:29 01/06/25 21:46 01/06/25 17:03 01/06/25 16:24 Range/Units White Blood Count 6.4 4.4-10.8 10^3/uL Red Blood Count 4.17 4.0-5.20 10^6/uL Hemoglobin 12.5 # 12.2-16.2 g/dL Hematocrit 37.8 # 36.0-46.0 % Mean Corpuscular Volume 90.6 80.0-100.0 fL Mean Corpuscular Hemoglobin 29.9 28.0-32.0 pg Mean Corpuscular Hemoglobin Concent 33.1 32.0-36.0 g/dL Red Cell Distribution Width 15.3 H 11.8-14.3 % Platelet Count 90 L 140-450 10^3/uL Mean Platelet Volume 10.2 6.9-10.8 fL Neutrophils (%) (Auto) 39.2 37.0-80.0 % Lymphocytes (%) (Auto) 41.2 10.0-50.0 % Monocytes (%) (Auto) 17.2 H 0.0-12.0 % Eosinophils (%) (Auto) 2.1 0.0-7.0 % Basophils (%) (Auto) 0.3 0.0-2.0 % Neutrophils # (Auto) 2.5 1.6-8.6 10 ^3/uL Lymphocytes # (Auto) 2.6 0.4-5.4 10 ^3/uL Monocytes # (Auto) 1.1 0-1.3 10 ^3/uL Eosinophils # (Auto) 0.1 0-0.8 10 ^3/uL Basophils # (Auto) 0 0-0.2 10 ^3/uL Nucleated Red Blood Cells 0.5 % Sodium Level 144 136-145 mmol/L Potassium Level 4.1 3.5-5.1 mmol/L Chloride Level 112 H 98-107 mmol/L Carbon Dioxide Level 23 20-31 mmol/L Anion Gap 9 5-15 Blood Urea Nitrogen 7 L 9-23 mg/dL Creatinine 0.71 0.550-1.02 mg/dL Glomerular Filtration Rate Calc 95 >90 mL/min BUN/Creatinine Ratio 9.9 L 10.0-20.0 Serum Glucose 100 74-106 mg/dL Calcium Level 8.2 L 8.7-10.4 mg/dL Magnesium Level 1.9 1.6-2.6 mg/dL Total Bilirubin 1.2 H 0.2-1.0 mg/dL Aspartate Amino Transferase (AST) 93 H 13-40 U/L Alanine Aminotransferase (ALT) 65 H 7-40 U/L Alkaline Phosphatase 125 H 46-116 U/L Total Protein 6.6 5.7-8.2 g/dL Albumin 2.7 L 3.2-4.8 g/dL Triglycerides Level 48 < 150 mg/dL Cholesterol Level 147 < 200 mg/dL LDL Cholesterol 88 < 100 mg/dL HDL Cholesterol 46 40-59 mg/dL D-Dimer, Quantitative 1.99 H 0.0-0.49 mg/L FEU Troponin I High Sensitivity 2336 *H </=34 ng/L B-Type Natriuretic Peptide 144.76 0-100 pg/mL Lactic Acid Level 1.3 0.4-2.0 mmol/L Thyroid Stimulating Hormone (TSH) 1.84 0.55-4.78 uIU/mL Test 01/06/25 16:00 01/06/25 13:34 Range/Units Urine Color Light-yellow Yellow Urine Clarity Clear Clear Urine pH 7.5 5.0-9.0 Urine Specific [place] 1.007 1.001-1.035 Urine Protein Negative Negative Urine Ketones Negative Negative Urine Blood Negative Negative /uL Urine Nitrite Negative Negative Urine Bilirubin Negative Negative Urine Urobilinogen Normal Negative mg/dL Urine Leukocyte Esterase Negative Negative /uL Urine RBC None seen 0 - 4 /hpf Urine Microscopic WBC 1 0-5 /HPF Urine Squamous Epithelial Cells Few <5 /hpf Urine Amorphous Crystals Few None Seen /hpf Urine Bacteria None seen None Seen /hpf Urine Glucose Normal Normal mg/dL Urine Opiates Screen Neg NEGATIVE Urine Fentanyl Screen Neg NEGATIVE Urine Barbiturates Screen Neg NEGATIVE Urine Phencyclidine Screen Neg NEGATIVE Urine Amphetamines Screen Neg NEGATIVE Urine Benzodiazepines Screen Neg NEGATIVE Urine Cocaine Screen Neg NEGATIVE Urine Cannabinoids Screen Neg NEGATIVE Platelet Estimate Decreased Assessment ? NSTEMI likely type 2 New onset AFib with RVR with a secondary hypercoagulable state Obesity, morbid with a BMI 46.3 Hypertension Hyperlipidemia Plan/Recommendation We will continue with the following plan/recommendations (Dr. Newman): Echocardiogram to evaluate cardiac function Telemetry Amiodarone drip Therapeutic Lovenox Lipid lowering agent BP control We will schedule inpatient stress test with the next available appointment Case discussed with the Dr. Newman Plan discussed with: Patient Date of Service: Jan 07, 2025 Billing Provider: CONCEPCION NEWMAN Sr., MD Common Visit Codes: [id number] INP/OBS CARE (MOD) ZOE VERNON RESIDENT Jan 07, 2025 10:42
[2025-01-07] MEDS ORDERED: ENOXAPARIN SOD 100 MG/1 ML SYRINGE SC SCH (10:45)
[2025-01-07 11:16] LABS: INR 1.25 (0.9-1.15); Partial Thromboplastin Time 36.7 SEC (24.5-34.5); Prothrombin Time 13.0 sec (9.3-11.8)
--- NOTE | 2025-01-07 15:11 | DVHPN2 ---
Reviewed: H&P Changes from previous H/P or p: No Changes General: Per HPI Objective Vitals Vital Signs Date Time Temp Pulse Resp B/P (MAP) Pulse Ox O2 Delivery O2 Flow Rate FiO2 01/07/25 12:20 98.4 75 19 119/77 (91) 97 98.4 01/07/25 08:00 Room Air* 0 21 Intake/Output Intake and Output 01/07/25 07:00 Intake Total 1199.99 ml Balance 1199.99 ml Intake Oral 0 ml IV Total 1199.99 ml Exam Gen: 64-year-old female in mild distress, morbidly obese Skin: Warm, dry, normal color and texture, no rash. HEENT: Normocephalic atraumatic, mucous membranes moist and pink. Neck: Cervical and supraclavicular nodes normal without enlargement, trachea is midline, thyroid gland is normal without masses. Pulmonary: Clear to auscultation and percussion bilaterally. Cardiac: Irregular rhythm Abdomen: Soft, nontender, nondistended, bowel sounds present all 4 quadrants, no guarding, no rigidity, no organomegaly. Extremities: No cyanosis, clubbing, no edema Neuro: Cranial nerves II through XII grossly intact, normal affect and speech, no focal motor deficits. Medications Current Medications Medications Dose Ordered Sig/Vicente Route Start Time Stop Time Status Last Admin Dose Admin Amiodarone HCl 250 ml @ 16.66 mls/ hr Q15H1M IV 01/06/25 20:15 01/07/25 14:53 16.66 MLS/HR Aspirin 162 mg DAILY PO 01/07/25 10:00 Hold Atorvastatin Calcium 10 mg HS PO 01/06/25 22:00 01/07/25 00:09 10 MG Divalproex Sodium 500 mg BID PO 01/06/25 22:00 01/07/25 09:22 500 MG Enalapril Maleate 20 mg DAILY PO 01/07/25 10:00 01/07/25 09:22 20 MG Gabapentin 300 mg TID PO 01/06/25 22:00 01/07/25 14:18 300 MG Triamterene/HCTZ 1 cap DAILY PO 01/07/25 10:00 01/07/25 09:22 1 CAP Levothyroxine Sodium 25 mcg QAM@0600 PO 01/07/25 06:00 01/07/25 06:50 25 MCG Ondansetron HCl 4 mg Q4HP PRN IV 01/06/25 20:00 Acetaminophen 650 mg Q6HP PRN PO 01/06/25 20:00 Nitroglycerin 0.4 mg Q5MINP PRN SL 01/06/25 20:00 Morphine Sulfate 2 mg Q30M PRN IV 01/06/25 20:00 Enoxaparin Sodium 130 mg Q12HR SC 01/07/25 10:45 Hold Laboratory Results Laboratory Tests 01/07/25 05:29 Chemistry Test 01/07/25 05:29 Albumin 2.7 g/dL (3.2-4.8) L Calcium Level 8.2 mg/dL (8.7-10.4) L Magnesium Level 1.9 mg/dL (1.6-2.6) Total Protein 6.6 g/dL (5.7-8.2) Coagulation Test 01/06/25 21:46 01/07/25 10:30 D-Dimer, Quantitative 1.99 mg/L FEU (0.0-0.49) H Prothrombin Time 13.0 sec (9.3-11.8) H Prothrombin Time INR 1.25 (0.9-1.15) H Activated Partial Thromboplast Time 36.7 SEC (24.5-34.5) H Lipid panel Test 01/07/25 05:29 Cholesterol Level 147 mg/dL (< 200) HDL Cholesterol 46 mg/dL (40-59) Triglycerides Level 48 mg/dL (< 150) Cardiac Markers Test 01/06/25 21:46 B-Type Natriuretic Peptide 144.76 pg/mL (0-100) LFT Test 01/07/25 05:29 Alanine Aminotransferase (ALT) 65 U/L (7-40) H Alkaline Phosphatase 125 U/L (46-116) H Aspartate Amino Transferase (AST) 93 U/L (13-40) H Total Bilirubin 1.2 mg/dL (0.2-1.0) H HgA1c, TSH Test 01/06/25 16:24 Thyroid Stimulating Hormone (TSH) 1.84 uIU/mL (0.55-4.78) Urinalysis Test 01/06/25 16:00 Urine Color Light-yellow (Yellow) Urine Clarity Clear (Clear) Urine pH 7.5 (5.0-9.0) Urine Specific [place] 1.007 (1.001-1.035) Urine Protein Negative (Negative) Urine Ketones Negative (Negative) Urine Blood Negative /uL (Negative) Urine Nitrite Negative (Negative) Urine Bilirubin Negative (Negative) Urine Urobilinogen Normal mg/dL (Negative) Urine Leukocyte Esterase Negative /uL (Negative) Urine RBC None seen /hpf (0 - 4) Urine Microscopic WBC 1 /HPF (0-5) Urine Squamous Epithelial Cells Few /hpf (<5) Urine Amorphous Crystals Few /hpf (None Seen) Urine Bacteria None seen /hpf (None Seen) Urine Glucose Normal mg/dL (Normal) Labs and/or images reviewed: Labs reviewed by me, Image(s) reviewed by me Assessment/Plan Assessment/Plan 64-year-old female presents for evaluation of chest pain. Patient reports that today while she was at [place] she developed left-sided sharp pain with associated palpitations and shortness for breath. She became dizzy and diaphoretic as well. Patient is currently complaining of left lower extremity calf pain. Currently denies any chest pain. No other acute symptoms. Past Medical History Hypertension, anxiety, lupus, DVT 01/07: Patient presenting with chest pain, left side with palpitations and shortness for breath. Dizziness and diaphoresis. K EKG with prolonged QT, sinus rhythm, no concerning findings. Patient has thrombocytopenia 67-90 now. Significant troponin elevation up to 2000. Hypoalbuminemia 2.7. UDS negative, D-dimer positive, INR elevated to 1.25. LFTs elevated mildly AST more than ALT, ALP elevated, T bili 1.2 elevated. Labs were concerning for alcohol abuse. CTA PE study with ruled out PE. Showing mild fluid overload in the lungs. Patient left lower extremity DVT ultrasound study with no DVT but has 4 cm Canas's cyst. BNP normal,. Patient has morbid obesity BMI 46. Patient has AFib RVR, cardiology consulted. Patient be taken for inpatient stress test. Started on amnio drip, echo to evaluate cardiac function. Blood pressure control. - Patient admits that she used to have binge during 3 large cans of beer every day after work for many years. This is consistent with her lab work. Cardiology will take for stress test tomorrow. She continues to have pressure- like pain substernal, blood pressure also appears to be more pleuritic. Assessment AFib with RVR Elevated troponin, possible demand ischemia Thrombocytopenia Hypertension Morbid obesity BMI 46 Plan Continue amiodarone drip Cardiology consultation Resume home medications (Lipitor 10, Depakote 500 b.i.d., enalaprilat 20 daily, gabapentin 300 t.i.d., Synthroid 25 mcg q.a.m., Dyazide 1 daily, aspirin 162 daily, Lovenox full dose, Continue treatment per orders. Tele Full code Plan discussed with: Patient Date of Service: Jan 07, 2025 Billing Provider: SARITHA DENNIS MD Common Visit Codes: [id number] INP/OBS CARE(HIGH) SARITHA DENNIS MD Jan 07, 2025 15:11
[2025-01-08 00:51] VITALS: BP 103/75; PULSE 81; RESP 18; TEMP 98; O2SAT 97
[2025-01-08 05:00] VITALS: BP 101/51; PULSE 83; RESP 16; TEMP 97.9; O2SAT 92
[2025-01-08 07:41] LABS: Alkaline Phosphatase 110 U/L (46-116); Anion Gap 9 (5-15); BUN/Creatinine Ratio 9.6 (10.0-20.0); Bilirubin, Total 1.1 mg/dL (0.2-1.0); Carbon Dioxide 25 mmol/L (20-31); Chloride 106 mmol/L (98-107); Potassium 4.1 mmol/L (3.5-5.1); Sodium 140 mmol/L (136-145); Total Protein 6.5 g/dL (5.7-8.2)
[2025-01-08 07:53] LABS: Blood Urea Nitrogen 7 mg/dL (9-23); Glucose 69 mg/dL (74-106)
[2025-01-08 07:54] LABS: Alanine Aminotransferase 61 U/L (7-40); Albumin 2.6 g/dL (3.2-4.8); Calcium 8.0 mg/dL (8.7-10.4)
[2025-01-08 07:58] LABS: Hematocrit 35.5 % (36.0-46.0); Hemoglobin 12.0 g/dL (12.2-16.2); Mean Corpuscular Hemoglobin 30.3 pg (28.0-32.0); Mean Corpuscular Volume 89.4 fL (80.0-100.0); Nucleated Red Blood Cells % 0.2 %
[2025-01-08 08:00] VITALS: PULSE 78
[2025-01-08] MEDS: REGADENOSON 0.4 MG/5 ML SYRG IV ONE ×2 (09:53→09:55)
[2025-01-08 12:53] VITALS: BP_SYST 136; BP_SYST 139; BP_DIAS 59; BP_DIAS 79; PULSE 73; PULSE 75; RESP 16; RESP 17; TEMP 97.8; TEMP 98; O2SAT 98; O2SAT 99
--- NOTE | 2025-01-08 13:14 | DVHPN2 ---
Reviewed: H&P Changes from previous H/P or p: No Changes General: Per HPI Objective Vitals Vital Signs Date Time Temp Pulse Resp B/P (MAP) Pulse Ox O2 Delivery O2 Flow Rate FiO2 01/08/25 12:53 98.0 75 17 136/59 (84) 98 98.0 01/08/25 08:00 Room Air* 0 21 Intake/Output Intake and Output 01/08/25 07:00 Intake Total 579.96 ml Balance 579.96 ml Intake Oral 480 ml IV Total 99.96 ml # Voids 5 # Bowel Movements 3 Exam Gen: 64-year-old female in mild distress, morbidly obese Skin: Warm, dry, normal color and texture, no rash. HEENT: Normocephalic atraumatic, mucous membranes moist and pink. Neck: Cervical and supraclavicular nodes normal without enlargement, trachea is midline, thyroid gland is normal without masses. Pulmonary: Clear to auscultation and percussion bilaterally. Cardiac: Irregular rhythm Abdomen: Soft, nontender, nondistended, bowel sounds present all 4 quadrants, no guarding, no rigidity, no organomegaly. Extremities: No cyanosis, clubbing, no edema Neuro: Cranial nerves II through XII grossly intact, normal affect and speech, no focal motor deficits. Medications Current Medications Medications Dose Ordered Sig/Vicente Route Start Time Stop Time Status Last Admin Dose Admin Aspirin 162 mg DAILY PO 01/07/25 10:00 Hold Atorvastatin Calcium 10 mg HS PO 01/06/25 22:00 01/07/25 21:35 10 MG Divalproex Sodium 500 mg BID PO 01/06/25 22:00 01/08/25 11:33 500 MG Enalapril Maleate 20 mg DAILY PO 01/07/25 10:00 01/08/25 11:30 20 MG Gabapentin 300 mg TID PO 01/06/25 22:00 01/08/25 05:44 300 MG Triamterene/HCTZ 1 cap DAILY PO 01/07/25 10:00 01/08/25 11:31 1 CAP Levothyroxine Sodium 25 mcg QAM@0600 PO 01/07/25 06:00 01/08/25 05:44 25 MCG Ondansetron HCl 4 mg Q4HP PRN IV 01/06/25 20:00 Acetaminophen 650 mg Q6HP PRN PO 01/06/25 20:00 Nitroglycerin 0.4 mg Q5MINP PRN SL 01/06/25 20:00 Morphine Sulfate 2 mg Q30M PRN IV 01/06/25 20:00 Enoxaparin Sodium 130 mg Q12HR SC 01/08/25 22:00 Laboratory Results Laboratory Tests 01/08/25 06:05 01/08/25 07:31 Chemistry Test 01/08/25 06:05 Albumin 2.6 g/dL (3.2-4.8) L Calcium Level 8.0 mg/dL (8.7-10.4) L Total Protein 6.5 g/dL (5.7-8.2) LFT Test 01/08/25 06:05 Alanine Aminotransferase (ALT) 61 U/L (7-40) H Alkaline Phosphatase 110 U/L (46-116) Aspartate Amino Transferase (AST) 95 U/L (13-40) H Total Bilirubin 1.1 mg/dL (0.2-1.0) H Urinalysis Test 01/06/25 16:00 Urine Color Light-yellow (Yellow) Urine Clarity Clear (Clear) Urine pH 7.5 (5.0-9.0) Urine Specific [place] 1.007 (1.001-1.035) Urine Protein Negative (Negative) Urine Ketones Negative (Negative) Urine Blood Negative /uL (Negative) Urine Nitrite Negative (Negative) Urine Bilirubin Negative (Negative) Urine Urobilinogen Normal mg/dL (Negative) Urine Leukocyte Esterase Negative /uL (Negative) Urine RBC None seen /hpf (0 - 4) Urine Microscopic WBC 1 /HPF (0-5) Urine Squamous Epithelial Cells Few /hpf (<5) Urine Amorphous Crystals Few /hpf (None Seen) Urine Bacteria None seen /hpf (None Seen) Urine Glucose Normal mg/dL (Normal) Labs and/or images reviewed: Labs reviewed by me, Image(s) reviewed by me Assessment/Plan Assessment/Plan 64-year-old female presents for evaluation of chest pain. Patient reports that today while she was at [employer] she developed left-sided sharp pain with associated palpitations and shortness for breath. She became dizzy and diaphoretic as well. Patient is currently complaining of left lower extremity calf pain. Currently denies any chest pain. No other acute symptoms. Past Medical History Hypertension, anxiety, lupus, DVT 01/07: Patient presenting with chest pain, left side with palpitations and shortness for breath. Dizziness and diaphoresis. K EKG with prolonged QT, sinus rhythm, no concerning findings. Patient has thrombocytopenia 67-90 now. Significant troponin elevation up to 1999. Hypoalbuminemia 2.7. UDS negative, D-dimer positive, INR elevated to 1.25. LFTs elevated mildly AST more than ALT, ALP elevated, T bili 1.2 elevated. Labs were concerning for alcohol abuse. CTA PE study with ruled out PE. Showing mild fluid overload in the lungs. Patient left lower extremity DVT ultrasound study with no DVT but has 4 cm Canas's cyst. BNP normal,. Patient has morbid obesity BMI 46. Patient has AFib RVR, cardiology consulted. Patient be taken for inpatient stress test. Started on amnio drip, echo to evaluate cardiac function. Blood pressure control. - Patient admits that she used to have binge during 3 large cans of beer every day after work for many years. This is consistent with her lab work. Cardiology will take for stress test tomorrow. She continues to have pressure- like pain substernal, blood pressure also appears to be more pleuritic. 01/08: Results pending for stress Cardiolite stress test and echocardiogram. Troponins retested are downtrending. We will keep patient on tele. Pending Cardiology follow up. Assessment AFib with RVR Elevated troponin, possible demand ischemia Thrombocytopenia Hypertension Morbid obesity BMI 46 Plan Continue amiodarone drip Cardiology consultation Resume home medications (Lipitor 10, Depakote 500 b.i.d., enalaprilat 20 daily, gabapentin 300 t.i.d., Synthroid 25 mcg q.a.m., Dyazide 1 daily, aspirin 162 daily, Lovenox full dose, Continue treatment per orders. Tele Full code Plan discussed with: Patient My Orders Orders - SARITHA DENNIS MD Procedure Category Date Status Time Troponin-I Hs LAB 01/08/25 In Process 12:35 Troponin-I Hs LAB 01/08/25 Logged 14:35 Date of Service: Jan 08, 2025 Billing Provider: SARITHA DENNIS MD Common Visit Codes: [id number] INP/OBS CARE(HIGH) SARITHA DENNIS MD Jan 08, 2025 13:14
--- NOTE | 2025-01-08 16:06 | DVHSR ---
APPROVED REPORT Exam: Nuclear Stress Test BMI: 0 Stress Test Details Stress Test: Pharmacologic stress testing performed using 0.4 mg of regadenoson per 5 mL given IV over 10 seconds. HR Resting HR: 76 bpm Max Heart Rate (APMHR): 157.714298 bpm Max HR Achieved: 83 bpm Target HR (85% APMHR): 133.458867 bpm % of APMHR: 52.87 Recovery HR: 79 bpm BP Resting BP: 133/74 mmHg Recovery BP: 130/77 mmHg ECG Resting ECG: Sinus Rhythm Clinical Reason for Termination: Completed protocol Nurse Comments Received patient from Nuclear Medicine. Patient is A&O x4. For VS please refer back to stress test assessment documentation. Patient is connected to relief pilot. See Cardio- Neuro procedural notes for additional details. PIV flushes well. Reviewed POC and patient verbalizes understanding and consents to test. Lexiscan 0.4mg/5ml given. Stress test performed per protocol. ophthalmic medical technician administered the Cardiolite, following Lexiscan injection. Patient tolerated well and vitals returned to baseline. Transferred back to Nuclear Medicine via wheelchair with tech in stable condition. Stress ECG Conclusion NON ISCHEMIC CLINICAL RESPONSE NON ISCHEMIC ECG RESPONSE NON ISCHEMIC CARDIOLITE IMAGES EF >55% NM EXAM: Myocardial Perfusion REST/STRESS Imaging Protocol: Rest Tc-99m/Stress Tc-99m 1 day Resting Data Rest SPECT myocardial perfusion imaging was performed in supine position 60 minutes following the intravenous injection of 10.0 mCi of Tc-99m Sestamibi. Time of rest injection: 08:00 Date: 01/08/2025 Time of rest imagin:00 Date: 01/08/2025 Administration Route: IV Administration Site: Right Hand Pharmacologic Stress Pharmacologic stress test was performed by injecting Regadenoson 0.4 mg IV push followed by the intravenous injection of 30.0 mCi of Tc-99m Sestamibi. Time of stress injection: 10:00 Date: 01/08/2025 Time of stress imagin:00 Date: 01/08/2025 Administration Route: IV Administration Site: Right Hand Gated Stress SPECT was performed 60 minutes after stress injection. The images were gated to evaluate regional wall motion and calculate left ventricular ejection fraction. Stress only was performed in the Supine position. Nuclear Conclusion NON ISCHEMIC CLINICAL RESPONSE NON ISCHEMIC ECG RESPONSE NON ISCHEMIC CARDIOLITE IMAGES EF >55%
--- NOTE | 2025-01-08 16:26 | DVHPN2 ---
Consult Progress Note Date Seen: Jan 08, 2025 Subjective Review of Systems: CVS:Normal, RESPIRATORY:Normal, NEURO:Normal Objective vital signs Vital Sign Date Time Temp Pulse Resp B/P (MAP) Pulse Ox O2 Delivery O2 Flow Rate FiO2 01/08/25 12:53 98.0 75 17 136/59 (84) 98 98.0 01/08/25 08:00 Room Air* 0 21 Total Intake and Output 01/07/25 01/07/25 01/08/25 15:00 23:00 07:00 Intake Total 480 ml 99.96 ml Balance 480 ml 99.96 ml medications Current Medications Medications Dose Ordered Sig/Vicente Route Start Time Stop Time Status Last Admin Dose Admin Aspirin 162 mg DAILY PO 01/07/25 10:00 Hold Atorvastatin Calcium 10 mg HS PO 01/06/25 22:00 01/07/25 21:35 10 MG Divalproex Sodium 500 mg BID PO 01/06/25 22:00 01/08/25 11:33 500 MG Enalapril Maleate 20 mg DAILY PO 01/07/25 10:00 01/08/25 11:30 20 MG Gabapentin 300 mg TID PO 01/06/25 22:00 01/08/25 14:03 300 MG Triamterene/HCTZ 1 cap DAILY PO 01/07/25 10:00 01/08/25 11:31 1 CAP Levothyroxine Sodium 25 mcg QAM@0600 PO 01/07/25 06:00 01/08/25 05:44 25 MCG Ondansetron HCl 4 mg Q4HP PRN IV 01/06/25 20:00 Acetaminophen 650 mg Q6HP PRN PO 01/06/25 20:00 Nitroglycerin 0.4 mg Q5MINP PRN SL 01/06/25 20:00 Morphine Sulfate 2 mg Q30M PRN IV 01/06/25 20:00 Enoxaparin Sodium 130 mg Q12HR SC 01/08/25 22:00 Examination: LUNGS:Normal, CVS:Normal, NEURO:Normal laboratory and microbiology Laboratory Tests 01/08/25 07:31 01/08/25 06:05 Test 01/08/25 06:05 Range/Units Serum Glucose 69 L 74-106 mg/dL Problem List/Assessment/Plan Problem List/Assessment/Plan New onset paroxysmal Atrial Fibrillation with RVR, Stage IIIa, now NSR Secondary hypercoagulable state NSTEMI likely type 2 secondary to above Obesity, morbid with a BMI 46.3 Hypertension Hyperlipidemia Thrombocytopenia * Transthoracic echocardiogram ordered, pending. Preliminary LVEF reveals optimal LV function. * Cardiolite nuclear stress test: Nonischemic. EF > 55% * Twelve lead electrocardiograms revealed atrial fibrillation with rapid ventricular rate for which the patient was placed on amiodarone drip * manager monitoring reviewed: Successfully transitioned into a normal sinus rhythm * Troponin levels peaked in the 800s ng/L. BNP level 100s Plan/Recommendation (Dr. Rodney) A preliminary transthoracic echocardiogram revealed a preserved LVEF. Cardiolite nuclear stress test is nonischemic. Transition to oral antiarrhythmic therapy as well as DOAC therapy with optimal platelet count ([id number] score 1 point, HAS-BLED Score 0 points). In the time being, she may be at high risk for an acute CVA. Initiate beta-duarte. Follow-up with a primary family services manager within 3-4 weeks post-discharge. Patient can benefit an outpatient event monitor for further evaluation of tachyarrhythmia and need of DOAC therapy. There is no further cardiac workup indicated at this time. Kindly call if in need of further recommendations. Thank you for allowing us to participate in this patient's care. Please call if you have any questions or concerns. This medical document was created using an electronic medical record system with voice recognition software and computerized dictation system. Although this document has been carefully reviewed, there might still be some phonetic and typographical errors. Occasional wrong-word or ``sound-alike substitutions may have occurred due to the inherent limitations of voice recognition software. These areas are purely typographical due to imperfections of the software programs and do not reflect any compromise in the patient's medical care. Please read the chart carefully and recognize, using context, where these substitutions have occurred. Plan discussed with: Patient, Other Date of Service: Jan 08, 2025 Billing Provider: ISABELLA KEITH Cardiology Common Codes: [id number] HOSP CARE(High ISABELLA KEITH Jan 08, 2025 16:26
[2025-01-08 16:50] VITALS: BP 105/44; PULSE 68; RESP 17; TEMP 97.9; O2SAT 100
[2025-01-08] MEDS ORDERED: FLEC1TAB PO (16:56)
[2025-01-08] MEDS ORDERED: METO25TA93 PO (16:56)
--- NOTE | 2025-01-08 16:56 | DVHDS2 ---
Discharge Summary Date of Admission Jan 06, 2025 at 19:50 Date of Discharge: Jan 08, 2025 Labs/Diagnostic Data: Laboratory Results Test 01/08/25 15:07 01/08/25 07:31 01/08/25 06:05 01/07/25 10:30 Troponin I High Sensitivity 794 ng/L (</=34) White Blood Count 4.9 10^3/uL (4.4-10.8) Red Blood Count 3.97 10^6/uL (4.0-5.20) Hemoglobin 12.0 g/dL (12.2-16.2) Hematocrit 35.5 % (36.0-46.0) Mean Corpuscular Volume 89.4 fL (80.0-100.0) Mean Corpuscular Hemoglobin 30.3 pg (28.0-32.0) Mean Corpuscular Hemoglobin Concent 33.9 g/dL (32.0-36.0) Red Cell Distribution Width 14.7 % (11.8-14.3) Platelet Count 78 10^3/uL (140-450) Mean Platelet Volume 9.9 fL (6.9-10.8) Neutrophils (%) (Auto) 32.1 % (37.0-80.0) Lymphocytes (%) (Auto) 50.6 % (10.0-50.0) Monocytes (%) (Auto) 14.3 % (0.0-12.0) Eosinophils (%) (Auto) 2.2 % (0.0-7.0) Basophils (%) (Auto) 0.8 % (0.0-2.0) Neutrophils # (Auto) 1.6 10 ^3/uL (1.6-8.6) Lymphocytes # (Auto) 2.5 10 ^3/uL (0.4-5.4) Monocytes # (Auto) 0.7 10 ^3/uL (0-1.3) Eosinophils # (Auto) 0.1 10 ^3/uL (0-0.8) Basophils # (Auto) 0 10 ^3/uL (0-0.2) Nucleated Red Blood Cells 0.2 % Sodium Level 140 mmol/L (136-145) Potassium Level 4.1 mmol/L (3.5-5.1) Chloride Level 106 mmol/L (98-107) Carbon Dioxide Level 25 mmol/L (20-31) Anion Gap 9 (5-15) Blood Urea Nitrogen 7 mg/dL (9-23) Creatinine 0.73 mg/dL (0.550-1.02) Glomerular Filtration Rate Calc 92 mL/min (>90) BUN/Creatinine Ratio 9.6 (10.0-20.0) Serum Glucose 69 mg/dL (74-106) Calcium Level 8.0 mg/dL (8.7-10.4) Total Bilirubin 1.1 mg/dL (0.2-1.0) Aspartate Amino Transferase (AST) 95 U/L (13-40) Alanine Aminotransferase (ALT) 61 U/L (7-40) Alkaline Phosphatase 110 U/L (46-116) Total Protein 6.5 g/dL (5.7-8.2) Albumin 2.6 g/dL (3.2-4.8) Prothrombin Time 13.0 sec (9.3-11.8) Prothrombin Time INR 1.25 (0.9-1.15) Activated Partial Thromboplast Time 36.7 SEC (24.5-34.5) Test 01/07/25 05:29 01/06/25 21:46 01/06/25 17:03 01/06/25 16:24 Magnesium Level 1.9 mg/dL (1.6-2.6) Triglycerides Level 48 mg/dL (< 150) Cholesterol Level 147 mg/dL (< 200) LDL Cholesterol 88 mg/dL (< 100) HDL Cholesterol 46 mg/dL (40-59) D-Dimer, Quantitative 1.99 mg/L FEU (0.0-0.49) B-Type Natriuretic Peptide 144.76 pg/mL (0-100) Lactic Acid Level 1.3 mmol/L (0.4-2.0) Thyroid Stimulating Hormone (TSH) 1.84 uIU/mL (0.55-4.78) Test 01/06/25 16:00 01/06/25 13:34 Urine Color Light-yellow (Yellow) Urine Clarity Clear (Clear) Urine pH 7.5 (5.0-9.0) Urine Specific [place] 1.007 (1.001-1.035) Urine Protein Negative (Negative) Urine Ketones Negative (Negative) Urine Blood Negative /uL (Negative) Urine Nitrite Negative (Negative) Urine Bilirubin Negative (Negative) Urine Urobilinogen Normal mg/dL (Negative) Urine Leukocyte Esterase Negative /uL (Negative) Urine RBC None seen /hpf (0 - 4) Urine Microscopic WBC 1 /HPF (0-5) Urine Squamous Epithelial Cells Few /hpf (<5) Urine Amorphous Crystals Few /hpf (None Seen) Urine Bacteria None seen /hpf (None Seen) Urine Glucose Normal mg/dL (Normal) Urine Opiates Screen Neg (NEGATIVE) Urine Fentanyl Screen Neg (NEGATIVE) Urine Barbiturates Screen Neg (NEGATIVE) Urine Phencyclidine Screen Neg (NEGATIVE) Urine Amphetamines Screen Neg (NEGATIVE) Urine Benzodiazepines Screen Neg (NEGATIVE) Urine Cocaine Screen Neg (NEGATIVE) Urine Cannabinoids Screen Neg (NEGATIVE) Platelet Estimate Decreased Other Laboratory Tests 01/08/25 07:31 01/08/25 06:05 Brief Hx & Hospital Course: 64-year-old female presents for evaluation of chest pain. Patient reports that today while she was at [employer] she developed left-sided sharp pain with associated palpitations and shortness for breath. She became dizzy and diaphoretic as well. Patient is currently complaining of left lower extremity calf pain. Currently denies any chest pain. No other acute symptoms. Past Medical History: Hypertension, anxiety, lupus, DVT 01/07: Patient presenting with chest pain, left side with palpitations and shortness for breath. Dizziness and diaphoresis. K EKG with prolonged QT, sinus rhythm, no concerning findings. Patient has thrombocytopenia 67-90 now. Significant troponin elevation up to 2000. Hypoalbuminemia 2.7. UDS negative, D-dimer positive, INR elevated to 1.25. LFTs elevated mildly AST more than ALT, ALP elevated, T bili 1.2 elevated. Labs were concerning for alcohol abuse. CTA PE study with ruled out PE. Showing mild fluid overload in the lungs. Patient left lower extremity DVT ultrasound study with no DVT but has 4 cm Canas's cyst. BNP normal,. Patient has morbid obesity BMI 46. Patient has AFib RVR, cardiology consulted. Patient be taken for inpatient stress test. Started on amnio drip, echo to evaluate cardiac function. Blood pressure control. - Patient admits that she used to have binge during 3 large cans of beer every day after work for many years. This is consistent with her lab work. Cardiology will take for stress test tomorrow. She continues to have pressure- like pain substernal, blood pressure also appears to be more pleuritic. 01/08: Results pending for stress Cardiolite stress test and echocardiogram. Troponins retested are downtrending. We will keep patient on tele. Pending Cardiology follow up. Diagnosis: AFib with RVR , paroxysmal AFib, new diagnosis ACS ruled out Elevated troponin, possible demand ischemia, NSTEMI likely type 2 Cirrhosis, alcoholic, Thrombocytopenia, from chronic alcohol abuse History of alcohol addiction/dependence Hypertension Morbid obesity BMI 46 SLE Anxiety History of DVT Plan: - continue taking medications for SLE - start taking flecainide 50 mg twice daily, and metoprolol XL 25 mg daily - Continue taking other home medications (hydrochlorothiazide, Synthroid, divalproex,) - 1 week follow up with PCP to review discharge and to do medication reconciliation. - patient to take Medicare call car to ride to home - continue avoiding alcohol, PCP to refer to GI for cirrhosis Condition at Discharge: Fair Final Diagnosis/Problems List AFib with RVR , paroxysmal AFib, new diagnosis ACS ruled out Elevated troponin, possible demand ischemia, NSTEMI likely type 2 Cirrhosis, alcoholic, Thrombocytopenia, from chronic alcohol abuse History of alcohol addiction/dependence Hypertension Morbid obesity BMI 46 SLE Anxiety History of DVT Discharge Disposition: Home Discharge Instruct/Medications Scheduled Amitriptyline Hcl (Amitriptyline Hcl), 25 MG PO BID, (Reported) Aspirin (Aspirin Ec Low Dose), 81 MG PO DAILY, (Reported) Ciprofloxacin Hcl (Cipro), 1 TAB PO BID Citalopram Hydrobromide (Citalopram Hydrobromide), 20 MG PO BID, (Reported) Divalproex Sodium (Divalproex Sodium), 2 TAB PO BID, (Reported) Enalapril Maleate (Enalapril Maleate), 20 MG PO DAILY, (Reported) Gabapentin (Gabapentin), 300 MG PO TID, (Reported) Hydrochlorothiazide W/Triamter (Triamterene/Hydrochloroth), 1 TAB PO DAILY Hydroxyzine Pamoate (Hydroxyzine Pamoate), 1 CAP PO TID, (Reported) Ibuprofen (Ibuprofen), 600 MG PO PRN, (Reported) Levothyroxine Sodium (Levothyroxine Sodium), 1 TAB PO DAILY, (Reported) Lurasidone Hcl (Latuda), 80 MG PO DAILY, (Reported) Pantoprazole Sodium Sesquihydr (Pantoprazole Sodium), 40 MG PO DAILY Quetiapine Fumerate (Seroquel), 50 MG PO HS [Protonix], 20 MG PO DAILY Scheduled PRN Lorazepam (Ativan Tablet), 1 TAB PO TID PRN Discharge Statement: "Patient was advised to return to the ER or call 911 if any headaches, dizziness, shortness of breath, chest pain, abdominal pain, bleeding, fevers, or worsening of medical condition. Patient was counseled about treatment plan, medications, possible side effects, patientverbalized understanding. All questions were answered to the best of my ability. This discharge took greater then 30 minutes in planning, reviewing documentation, counseling the patient, and discussing with other team members." ASSESSMENT ASSESSMENT Assessment Date of Service: Jan 08, 2025 Billing Provider: SARITHA DENNIS MD Common Visit Codes: 76716-DHB/OBS DISCH DAY >30min SARITHA DENNIS MD Jan 08, 2025 16:56
[2025-01-08] MEDS: METOPROLOL SUCCINATE XL 50 MG TAB PO ONE (17:22)
[2025-01-08] MEDS: methylPREDNISolone SOD SUCC 40 MG/ML VL IV ONE (17:23)
[2025-01-08 18:30] VITALS: BP 105/44; PULSE 68; RESP 17; TEMP 97.9; O2SAT 100
[2025-01-08] MEDS ORDERED: FLECAINIDE ACETATE 50 MG TAB PO SCH (22:00)
[2025-01-08] MEDS ORDERED: ENOXAPARIN SOD 150 MG/1 ML SYRINGE SC SCH (22:00)
[2025-01-09] MEDS ORDERED: METOPROLOL SUCCINATE XL 50 MG TAB PO SCH (10:00)
--- NOTE | 2025-01-11 10:26 | DVHSR ---
APPROVED REPORT EXAM: Two-dimensional and M-mode echocardiogram with Doppler and color Doppler. Blood Pressure: 108/57 mmHg INDICATION afib RISK FACTORS Obesity: Height: 66, Weight: 286 DIMENSIONS LVDd 3.7 (3.8-5.7cm) LA (2D) 3.3 (1.9-4.0cm) Aortic Root 2.9 (2.0-3.7cm) LVDs 2.5 (2.5-4.0cm) LA (MM) (1.9-4.0cm) Aortic Cusp Exc 1.7 (1.5-2.0cm) EF (%) 60.0 (55-70%) Rt. Atrium 2.8 (1.9-4.0cm) Asc. Aorta cm IVSd 1.1 (0.7-1.1cm) RV (D) 3.6 (1.8-2.4cm) PWd 1.0 (0.7-1.1cm) Mitral Valve Mitral Mitral Stenosis E wave 1.22m/s MV Mean GR. 4mmHg A wave 1.26m/s MV Peak GR. 94mmHg E/A ratio 1.0 2D MVA cm2 DECEL Time 346ms PRESS 1/2 Time ms Aortic Valve Aortic Valve Aortic Stenosis V1 1.50m/s AO Mean GR. 8mmHg V2 1.83m/s AO Peak GR. 13mmHg LVOT Diameter 1.8 (1.8-2.4cm) Doppler ARACELI 2.08cm2 Pulmonic Valve V2 0.99m/s Tricuspid Valve TR Velocity 2.68m/s RVSP 34mmHg Other Information Technically limited study due to body habitus.patient position. Conclusion lvef 60% mild LVH normal rv function left atrium enlargd no severe valve abnormalities noted normal pericardium mild mitral regurg
== END 2025-01-08 20:40 | disposition home or self-care (01) | DRG 281 ==
LOC: EDBD 13:04 → ER 13:10 → OVERFLOW 19:50 → TELE-WESTW 21:57
PROVIDERS: ADMIT Student in an Organized Health Care Education/Training Program; ATTEND Student in an Organized Health Care Education/Training Program
DX: I48.0 Paroxysmal atrial fibrillation (principal); D68.69 Other thrombophilia; I21.A1 Myocardial infarction type 2; D69.59 Other secondary thrombocytopenia; E66.01 Morbid (severe) obesity due to excess calories; F10.10 Alcohol abuse, uncomplicated; K70.30 Alcoholic cirrhosis of liver without ascites; M32.9 Systemic lupus erythematosus, unspecified; Z68.42 Body mass index [BMI] 45.0-49.9, adult; F41.9 Anxiety disorder, unspecified; E78.5 Hyperlipidemia, unspecified; Z88.6 Allergy status to analgesic agent; Z79.01 Long term (current) use of anticoagulants; Z79.1 Long term (current) use of non-steroidal anti-inflammatories (NSAID); Z86.718 Personal history of other venous thrombosis and embolism; Y90.9 Presence of alcohol in blood, level not specified
CPT/HCPCS: 36415; 71045; 71275; 78452; 80048; 80053; 80061; 80307; 81001; 83605; 83735; 83880; 84443; 84484; 85025; 85379; 85610; 85730; 93005; 93017; 93306; 93971; 96365; 99291; 99292; G0378